=== PATIENT | male | born 1945 | race Caucasian/White ===

== ENCOUNTER 2020-04-10 15:15 | Outpatient (REF) | payer MEDICARE, OTHER, SELFPAY ==
[2020-04-10 15:37] LABS: MANUAL DIFF FLAG NO
[2020-04-10 15:39] LABS: Basophils Percent Auto 0.4 % (0-2); Eosinophils Absolute Auto 0.3 X10*3/uL (0.0-0.4); Eosinophils Percent Auto 3.4 % (0-4); Hematocrit 41.2 % (42-52); Hemoglobin 13.3 g/dl (14.0-18.0); Imm Gran Abs Auto 0.02 X10*3/uL (0.00-0.03); Imm Gran Pct Auto 0.2 % (0.0-0.4); Lymphocytes Absolute Auto 2.3 X10*3/uL (1.2-4.9); Lymphocytes Percent Auto 28.7 % (20-40); Mean Corpuscular HGB Conc 32.3 g/dl (31.0-36.0); Monocytes Absolute Auto 0.6 X10*3/uL (0.1-1.2); Monocytes Percent Auto 6.9 % (2-11); Neutrophils Absolute Auto 4.9 X10*3/uL (2.0-8.3); Neutrophils Percent Auto 60.4 % (45-73); Platelet Count 203 X10*3/uL (160-400); Red Blood Count 4.58 X10*6/uL (4.60-5.80); Red Cell Distribution Width 13.6 % (11.0-16.0); White Blood Count 8.1 X10*3/uL (4.8-10.8)
[2020-04-10 16:30] LABS: Iron 86 mcg/dL (45-160); Percent Iron Saturation 44 % (15-50); Total Iron Binding Capacity 196 mcg/dL (228-428); Unsaturated Iron Binding 110 ug/dL
[2020-04-10 17:23] LABS: Ferritin 24 ng/mL (20-250)
== END 2020-04-10 15:16 | disposition home or self-care (01) ==
LOC: HO.BBR 15:15
PROVIDERS: Visit Provider Internal Medicine Medical Oncology
DX: E83.110 Hereditary hemochromatosis (principal)
CPT/HCPCS: 36415; 82728; 83540; 85025; 99195

== ENCOUNTER 2020-04-22 13:53 | Outpatient (REF) | payer SELFPAY | END 2020-04-22 13:54 | disposition home or self-care (01) | LOC: HO.HAP 13:53 | PROVIDERS: Visit Provider Internal Medicine | DX: Z46.1 Encounter for fitting and adjustment of hearing aid (principal) | CPT/HCPCS: 92700 ==

== ENCOUNTER 2020-04-23 13:03 | Outpatient (REF) | payer SELFPAY | END 2020-04-23 13:04 | disposition home or self-care (01) | LOC: HO.HAP 13:03 | PROVIDERS: Visit Provider Internal Medicine | DX: Z13.89 Encounter for screening for other disorder (principal) ==

== ENCOUNTER → 2020-05-01 10:55 | Outpatient (BNVA) | payer MEDICARE, OTHER, SELFPAY | PROVIDERS: PCP Internal Medicine; Visit Provider Internal Medicine | DX: I48.0 Paroxysmal atrial fibrillation (principal); Z51.81 Encounter for therapeutic drug level monitoring; Z79.01 Long term (current) use of anticoagulants | CPT/HCPCS: 85610 ==

== ENCOUNTER 2020-06-03 11:47 | Outpatient (REF) | payer MEDICARE, OTHER, SELFPAY | END 2020-06-03 11:48 | disposition home or self-care (01) | LOC: HO.HAP 11:47 | PROVIDERS: PCP Internal Medicine; Referring Provider Internal Medicine; Visit Provider Internal Medicine | DX: Z46.1 Encounter for fitting and adjustment of hearing aid (principal); H90.3 Sensorineural hearing loss, bilateral | CPT/HCPCS: 85610; 92700; 99211 ==

== ENCOUNTER 2020-06-13 14:54 | Outpatient (REF) | payer SELFPAY | END 2020-06-13 14:55 | disposition home or self-care (01) | LOC: HO.HAP 14:54 | PROVIDERS: PCP Internal Medicine; Referring Provider Internal Medicine; Visit Provider Internal Medicine | DX: Z46.1 Encounter for fitting and adjustment of hearing aid (principal) | CPT/HCPCS: V5264 ==

== ENCOUNTER → 2020-07-08 11:08 | Outpatient (BNVA) | payer MEDICARE, OTHER, SELFPAY | PROVIDERS: PCP Internal Medicine; Visit Provider Internal Medicine | DX: I48.0 Paroxysmal atrial fibrillation (principal); Z51.81 Encounter for therapeutic drug level monitoring; Z79.01 Long term (current) use of anticoagulants | CPT/HCPCS: 85610; 99211 ==

== ENCOUNTER → 2020-08-08 14:08 | Outpatient (BNVA) | payer MEDICARE, OTHER, SELFPAY | PROVIDERS: PCP Internal Medicine; Visit Provider Internal Medicine | DX: I48.0 Paroxysmal atrial fibrillation (principal); Z51.81 Encounter for therapeutic drug level monitoring; Z79.01 Long term (current) use of anticoagulants | CPT/HCPCS: 85610; 99211 ==

== ENCOUNTER 2020-08-13 13:23 | Outpatient (REF) | payer SELFPAY | END 2020-08-13 13:24 | disposition home or self-care (01) | LOC: HO.HAP 13:23 | PROVIDERS: Visit Provider Internal Medicine | DX: Z46.1 Encounter for fitting and adjustment of hearing aid (principal) | CPT/HCPCS: 99499 ==

== ENCOUNTER → 2020-09-05 15:09 | Outpatient (BNVA) | payer MEDICARE, OTHER, SELFPAY | PROVIDERS: PCP Internal Medicine; Visit Provider Internal Medicine | DX: I48.0 Paroxysmal atrial fibrillation (principal); Z51.81 Encounter for therapeutic drug level monitoring; Z79.01 Long term (current) use of anticoagulants | CPT/HCPCS: 85610; 99211 ==

== ENCOUNTER → 2020-10-03 14:50 | Outpatient (BNVA) | payer MEDICARE, OTHER, SELFPAY | PROVIDERS: PCP Internal Medicine; Visit Provider Internal Medicine | DX: I48.0 Paroxysmal atrial fibrillation (principal); Z79.01 Long term (current) use of anticoagulants; Z51.81 Encounter for therapeutic drug level monitoring | CPT/HCPCS: 85610; 99211 ==

== ENCOUNTER → 2020-10-09 09:48 | Outpatient (BNVA) | payer MEDICARE, SELFPAY | PROVIDERS: PCP Internal Medicine; Visit Provider Nurse Practitioner Gerontology | DX: Z13.89 Encounter for screening for other disorder (principal) | CPT/HCPCS: Q3014 ==

== ENCOUNTER → 2020-10-17 15:25 | Outpatient (BNVA) | payer MEDICARE, OTHER, SELFPAY | PROVIDERS: PCP Internal Medicine; Visit Provider Internal Medicine | DX: I48.0 Paroxysmal atrial fibrillation (principal); Z79.01 Long term (current) use of anticoagulants; Z51.81 Encounter for therapeutic drug level monitoring | CPT/HCPCS: 85610; 99211 ==

== ENCOUNTER 2021-03-11 14:01 | Outpatient (REF) | payer SELFPAY ==
--- NOTE | 2021-03-11 14:25 | MHC.AU.P13 ---
Hearing Instrument Problem Date of Visit: 03/11/21 Right Ear: Curriculum Developer: Phonak Model: AUDEO B90-312 Serial Number: [id number] Repair Warranty: 08/22/19 Loss and Damage Warranty: 08/22/19 Battery Size: 312 Color: BLACK Licensed Physical Therapist: 2xS Type of Mold: SLIM TIP Type of Wax Guard: CERUSTOP Dispensed By: [facility] Date of Fittin06/02/2016 Left Ear: Curriculum Developer: Phonak Model: CROS B-312 Serial Number: [id number] Repair Warranty: 08/22/17 Battery Size: 312 Tubin Type of Mold: CROS TIP Dispensed By: [facility] Date of Fittin06/02/2016 Follow-Up Summary: Patient brought in aids - not working. Batteries checked (one was weak) replaced both but bmw service technician not working. Cleaned and replaced right size 2xS bmw service technician and now both right and left CROS amplifying clearly. Will bill patient $150.00 bmw service technician replacement. Recommendations: Recommendations: Hearing instrument follow-up or maintenance as needed. Diagnosis Code(s): Primary Diagnosis: H90.3 Bilateral Sensorineural Hearing Loss Signature: Provider: SHAYY Benson-HIS
== END 2021-03-11 14:02 | disposition home or self-care (01) ==
LOC: HO.HAP 14:01
PROVIDERS: Visit Provider Internal Medicine
DX: Z46.1 Encounter for fitting and adjustment of hearing aid (principal); H90.3 Sensorineural hearing loss, bilateral
CPT/HCPCS: V5014

== ENCOUNTER 2021-04-06 14:38 | Outpatient (REF) | payer SELFPAY | END 2021-04-06 14:39 | disposition home or self-care (01) | LOC: HO.HAP 14:38 | PROVIDERS: Visit Provider Internal Medicine | DX: Z13.89 Encounter for screening for other disorder (principal) ==

== ENCOUNTER 2021-05-18 12:53 | Outpatient (REF) | payer MEDICARE, OTHER, SELFPAY ==
--- NOTE | 2021-05-18 13:10 | MHC.AU.P13 ---
Hearing Instrument Problem Date of Visit: 05/18/21 Right Ear: Sanitation Director: Phonak Model: AUDEO B90-312 Serial Number: [id number] Repair Warranty: 08/22/19 Loss and Damage Warranty: 08/22/19 Battery Size: 312 Color: BLACK Naval Marine Engineer: 2xS Type of Mold: SLIM TIP Type of Wax Guard: CERUSTOP Dispensed By: [facility] Date of Fittin06/02/2016 Left Ear: Sanitation Director: Phonak Model: CROS B-312 Serial Number: [id number] Repair Warranty: 08/22/17 Battery Size: 312 Tubin Type of Mold: CROS TIP Dispensed By: [facility] Date of Fittin06/02/2016 Follow-Up Summary: Patient brought in aids - not working. Clogged with wax, both aids cleaned and right wax guard replaced - now both amplifying clearly. Recommendations: Recommendations: Hearing instrument follow-up or maintenance as needed. Diagnosis Code(s): Primary Diagnosis: H90.3 Bilateral Sensorineural Hearing Loss Signature: Provider: SHAYY Benson-HIS
== END 2021-05-18 12:54 | disposition home or self-care (01) ==
LOC: HO.HAP 12:53
PROVIDERS: Visit Provider Internal Medicine
DX: Z46.1 Encounter for fitting and adjustment of hearing aid (principal); H90.3 Sensorineural hearing loss, bilateral
CPT/HCPCS: 99499

== ENCOUNTER 2021-06-03 14:03 | Outpatient (REF) | payer SELFPAY | END 2021-06-03 14:04 | disposition home or self-care (01) | LOC: HO.HAP 14:03 | PROVIDERS: Visit Provider Internal Medicine | DX: Z46.1 Encounter for fitting and adjustment of hearing aid (principal); H90.3 Sensorineural hearing loss, bilateral | CPT/HCPCS: V5267 ==

== ENCOUNTER 2021-09-02 15:19 | Outpatient (REF) | payer SELFPAY ==
--- NOTE | 2021-09-02 16:09 | MHC.AU.HFU ---
Hearing Instrument Follow-Up- Binaural Date of Visit: 09/02/21 Right Ear:Macaroni Maker: Phonak Model: AUDEO B90-312 Serial Number: [id number] Repair Warranty: 08/22/19 Loss and Damage Warranty: 08/22/19 Battery Size: 312 Color: BLACK Customer Services Manager: 2xS Type of Mold: SLIM TIP Type of Wax Guard: CERUSTOP Dispensed By: [facility] Date of Fittin06/02/2016 Left Ear: Macaroni Maker: Phonak Model: CROS B-312 Serial Number: [id number] Repair Warranty: 08/22/17 Battery Size: 312 Tubin Type of Dome: Type of Mold: CROS TIP Type of Wax Guard: Dispensed By: [facility] Date of Fittin06/02/2016 Follow-Up Summary: Patient reports the CROS system stopped working. Sometimes it turns back on and other times the system doesn't work. Initial listening check showed the right aid and CROS both working, but weaker than expected. Cleaned the aids, microphones, contacts, right straightening roll operator, and changed wax guards. Again did a listening check with the system working, but weak. When the right hearing aid case was squeezed, the aid stopped. Needed to turn the aid off and on again. Intermittently the right aid would shut off. Tried a new straightening roll operator with the problem continuing. Sending the right aid to [employer] for repair estimate. Recommendations:Call patient with estimate. Patient will decide if he wants the repair vs. new CROS system. Diagnosis Code(s):Primary Diagnosis: H90.3 Bilateral Sensorineural Hearing Loss Services Performed:YANCEY Non-Quantity Charges: HANC: NonBillable Event Signature: Provider: Margie Gonzales, [facility]
== END 2021-09-02 15:20 | disposition home or self-care (01) ==
LOC: HO.HAP 15:19
PROVIDERS: Visit Provider Internal Medicine
DX: Z13.89 Encounter for screening for other disorder (principal)

== ENCOUNTER 2021-09-17 13:22 | Outpatient (REF) | payer SELFPAY | END 2021-09-17 13:23 | disposition home or self-care (01) | LOC: HO.HAP 13:22 | PROVIDERS: Visit Provider Internal Medicine | DX: Z46.1 Encounter for fitting and adjustment of hearing aid (principal); H90.3 Sensorineural hearing loss, bilateral | CPT/HCPCS: V5014 ==

== ENCOUNTER 2021-12-02 13:52 | Outpatient (REF) | payer SELFPAY ==
--- NOTE | 2021-12-02 14:32 | MHC.AU.HFU ---
Hearing Instrument Follow-Up- Binaural Date of Visit: 12/02/21 Right Ear: Labor Utilization Superintendent: Phonak Model: AUDEO B90-312 Serial Number: [id number] Repair Warranty: 03/12/2022 Loss and Damage Warranty: 08/22/19 Battery Size: 312 Color: BLACK Log Deck Tender: 2xS Type of Mold: SLIM TIP Type of Wax Guard: CERUSTOP Dispensed By: [facility] Date of Fittin06/02/2016 Left Ear: Labor Utilization Superintendent: Phonak Model: CROS B-312 Serial Number: [id number] Repair Warranty: 08/22/17 Battery Size: 312 Tubin Type of Mold: CROS TIP Dispensed By: [facility] Date of Fittin06/02/2016 Follow-Up Summary: [facility] - CROS system not working. Batteries were and right hearing aid had cerumen completely blocking the adventure challenge instructor. Patient admits he does not remember to change the batteries every week. Sometimes will change the wax guard. Put new batteries, cleaned aids, receivers, microphones and CROS system is now working. Otoscopy shows small amount of cerumen in left ear. Gave patient handouts to keep next to his hearing aids for daily maintenance to think about since it seems as though the most difficult part for patient is the daily up keep of the aids. Recommendations:Hearing instrument follow-up or maintenance as needed. Please contact our clinic with any questions or concerns. Diagnosis Code(s):Primary Diagnosis: H90.3 Bilateral Sensorineural Hearing Loss Signature:Provider: Margie Gonzales, JD-A
== END 2021-12-02 13:53 | disposition home or self-care (01) ==
LOC: HO.HAP 13:52
PROVIDERS: Visit Provider Internal Medicine
DX: Z13.89 Encounter for screening for other disorder (principal)

== ENCOUNTER 2022-01-18 11:16 | Outpatient (REF) | payer SELFPAY | END 2022-01-18 11:17 | disposition home or self-care (01) | LOC: HO.HAP 11:16 | PROVIDERS: Visit Provider Internal Medicine | DX: Z46.1 Encounter for fitting and adjustment of hearing aid (principal); H91.03 Ototoxic hearing loss, bilateral | CPT/HCPCS: V5267 ==

== ENCOUNTER 2022-07-16 14:07 | Outpatient (REF) | payer SELFPAY | END 2022-07-16 14:08 | disposition home or self-care (01) | LOC: HO.HAP 14:07 | PROVIDERS: Visit Provider Internal Medicine | DX: Z46.1 Encounter for fitting and adjustment of hearing aid (principal); H90.3 Sensorineural hearing loss, bilateral | CPT/HCPCS: V5267 ==

== ENCOUNTER 2022-09-01 10:18 | Outpatient (REF) | payer SELFPAY ==
--- NOTE | 2022-09-01 11:06 | MHC.AU.HA3 ---
Hearing Instrument Follow-Up- Binaural Date of Visit: 09/01/22 Right Ear: Make, Model, Color, Serial Number: Brandon Fangeo B90-312 SN: [id number] Color: Black Product Scientist Repair Warranty: 03/12/2022 Product Scientist Loss and Damage Warranty: 08/22/2019 Battery Size: 312 Fork Assembler/Slim Tube: 2xS Earmold/Dome/CShell/SlimTip:Slim Tip Type of Wax Guard: CeruStop Dispensed By: [facility] Date of Fittin06/02/2016 Left Ear: Make, Model, Color, Serial Number: Brandon CROS B-312 SN: [id number] Color: Black Product Scientist Repair Warranty: 08/22/2017 Product Scientist Loss and Damage Warranty: 08/22/2017 Battery Size: 312 Earmold/Dome/CShell/SlimTip: CROS Tip Dispensed By: [facility] Date of Fittin06/02/2016 Follow-Up Summary: Timur reported that his right hearing aid is not working and he cannot change the wax guard. Lots of wax build on both molds and blocking right wax guard. Fork Assembler appeared to be recessed in mold so the wax guard could not be changed. Cleaned hearing aid and CROS and both ear molds. Replaced wax guard and able to push slot router further into mold so that wax guard is flush with end of mold. A listening check demonstrated that the hearing aid is working well and the CROS is transmitting sound appropriately. Timur noticed immediate improvement in office. Otoscopy clear, bilaterally. Paid $70.00 for cleaning/maintenance and two packages of wax guards. Recommendations: Hearing instrument follow-up or maintenance as needed. Diagnosis Code(s): Primary Diagnosis: H90.3 Bilateral Sensorineural Hearing Loss Signature: Provider: Jorge Ferrera, [facility]
== END 2022-09-01 10:19 | disposition home or self-care (01) ==
LOC: HO.HAP 10:18
PROVIDERS: Visit Provider Internal Medicine
DX: Z46.1 Encounter for fitting and adjustment of hearing aid (principal); H90.3 Sensorineural hearing loss, bilateral
CPT/HCPCS: 92593; V5267

== ENCOUNTER 2022-12-23 10:09 | Outpatient (REF) | payer SELFPAY | END 2022-12-23 10:10 | disposition home or self-care (01) | LOC: HO.HAP 10:09 | PROVIDERS: Visit Provider Internal Medicine | DX: Z46.1 Encounter for fitting and adjustment of hearing aid (principal); H90.3 Sensorineural hearing loss, bilateral | CPT/HCPCS: V5267 ==

== ENCOUNTER 2022-12-31 15:48 | Outpatient (REF) | payer SELFPAY | END 2022-12-31 15:49 | disposition home or self-care (01) | LOC: HO.HAP 15:48 | PROVIDERS: Visit Provider Internal Medicine | DX: Z46.1 Encounter for fitting and adjustment of hearing aid (principal); H90.3 Sensorineural hearing loss, bilateral | CPT/HCPCS: V5014 ==

== ENCOUNTER → 2023-05-02 09:50 | Outpatient (BNV) | payer MEDICARE, OTHER, SELFPAY | PROVIDERS: PCP Internal Medicine; Visit Provider Internal Medicine Medical Oncology | DX: E83.119 Hemochromatosis, unspecified (principal) | CPT/HCPCS: 99204; 99213 ==

== ENCOUNTER 2023-05-04 13:52 | Outpatient (REF) | payer MEDICARE, OTHER, SELFPAY ==
[2023-05-04 14:25] LABS: MANUAL DIFF FLAG NO
[2023-05-04 14:27] LABS: Basophils Percent Auto 0.4 % (0-2); Eosinophils Absolute Auto 0.2 X10*3/uL (0.0-0.4); Eosinophils Percent Auto 2.4 % (0-4); Hematocrit 43.5 % (42.0-52.0); Hemoglobin 13.8 g/dl (14.0-18.0); Imm Gran Abs Auto 0.01 X10*3/uL (0.00-0.03); Imm Gran Pct Auto 0.1 % (0.0-0.4); Lymphocytes Absolute Auto 1.6 X10*3/uL (1.2-4.9); Lymphocytes Percent Auto 24.2 % (20-40); Mean Corpuscular HGB Conc 31.7 g/dl (31.0-36.0); Mean Corpuscular Hemoglobin 28.8 pg (27.0-33.0); Mean Corpuscular Volume 90.8 fL (80.0-98.0); Mean Platelet Volume 9.1 fL (9.4-12.4); Monocytes Absolute Auto 0.6 X10*3/uL (0.1-1.2); Monocytes Percent Auto 8.1 % (2-11); Neutrophils Absolute Auto 4.4 x10*3/uL (2.0-8.3); Neutrophils Percent Auto 64.8 % (45-73); Platelet Count 190 X10*3/uL (160-400); Red Blood Count 4.79 X10*6/uL (4.60-5.80); Red Cell Distribution Width 14.1 % (11.0-16.0); White Blood Count 6.8 X10*3/uL (4.8-10.8)
[2023-05-04 15:14] LABS: Alanine Aminotransferase 8 U/L (0-40); Albumin Level 4.4 g/dL (3.5-5.0); Alkaline Phosphatase 56 U/L (39-117); Anion Gap 16 (12-20); Aspartate Amino Transferase 17 U/L (5-37); Bilirubin Total 1.7 mg/dL (0.0-1.0); Blood Urea Nitrogen 17 mg/dL (9-16); Calcium 9.7 mg/dL (8.4-10.2); Carbon Dioxide 23 mmol/L (22-29); Chloride 109 mmol/L (96-108); Estimated Glomerular Filt Rate > 60; Glucose Random 213 mg/dL (60-115); Iron 88 mcg/dL (45-160); Percent Iron Saturation 46 % (15-50); Potassium 4.5 mmol/L (3.3-5.1); Sodium 143 mmol/L (135-145); Total Iron Binding Capacity 190 mcg/dL (228-428); Total Protein 7.2 g/dL (6.5-8.0); Unsaturated Iron Binding 102 ug/dL
[2023-05-04 15:28] LABS: Ferritin 29 ng/mL (20-250)
== END 2023-05-04 13:53 | disposition home or self-care (01) ==
LOC: HO.BBR 13:52
PROVIDERS: Visit Provider Internal Medicine Medical Oncology
DX: E83.110 Hereditary hemochromatosis (principal)
CPT/HCPCS: 36415; 80053; 82728; 83540; 85025

== ENCOUNTER 2023-06-03 09:48 | Outpatient (REF) | payer MEDICARE, OTHER, SELFPAY ==
[2023-06-03 10:10] LABS: MANUAL DIFF FLAG NO
[2023-06-03 10:14] LABS: Basophils Percent Auto 0.4 % (0-2); Eosinophils Absolute Auto 0.2 X10*3/uL (0.0-0.4); Hematocrit 39.9 % (42.0-52.0); Hemoglobin 12.2 g/dl (14.0-18.0); Imm Gran Abs Auto 0.02 X10*3/uL (0.00-0.03); Imm Gran Pct Auto 0.3 % (0.0-0.4); Lymphocytes Percent Auto 28.6 % (20-40); Mean Corpuscular HGB Conc 30.6 g/dl (31.0-36.0); Mean Corpuscular Hemoglobin 27.5 pg (27.0-33.0); Mean Corpuscular Volume 90.1 fL (80.0-98.0); Mean Platelet Volume 8.9 fL (9.4-12.4); Monocytes Absolute Auto 0.5 X10*3/uL (0.1-1.2); Monocytes Percent Auto 7.4 % (2-11); Neutrophils Absolute Auto 4.3 x10*3/uL (2.0-8.3); Neutrophils Percent Auto 60.3 % (45-73); Platelet Count 231 X10*3/uL (160-400); Red Blood Count 4.43 X10*6/uL (4.60-5.80); Red Cell Distribution Width 13.7 % (11.0-16.0)
[2023-06-03 11:07] LABS: Alanine Aminotransferase 7 U/L (0-40); Albumin Level 4.4 g/dL (3.5-5.0); Alkaline Phosphatase 50 U/L (39-117); Anion Gap 14 (12-20); Aspartate Amino Transferase 17 U/L (5-37); Bilirubin Total 1.3 mg/dL (0.0-1.0); Blood Urea Nitrogen 15 mg/dL (9-16); Calcium 9.5 mg/dL (8.4-10.2); Carbon Dioxide 25 mmol/L (22-29); Chloride 109 mmol/L (96-108); Estimated Glomerular Filt Rate > 60; Glucose Random 146 mg/dL (60-115); Iron 31 mcg/dL (45-160); Percent Iron Saturation 16 % (15-50); Potassium 4.2 mmol/L (3.3-5.1); Sodium 144 mmol/L (135-145); Total Iron Binding Capacity 193 mcg/dL (228-428); Total Protein 7.1 g/dL (6.5-8.0); Unsaturated Iron Binding 162 ug/dL
[2023-06-03 11:26] LABS: Ferritin 13 ng/mL (20-250)
== END 2023-06-03 09:49 | disposition home or self-care (01) ==
LOC: HO.BBR 09:48
PROVIDERS: PCP Internal Medicine; Visit Provider Internal Medicine Medical Oncology
DX: E83.110 Hereditary hemochromatosis (principal)
CPT/HCPCS: 36415; 80053; 82728; 83540; 85025

== ENCOUNTER 2023-09-02 10:08 | Outpatient (REF) | payer MEDICARE, OTHER, SELFPAY ==
[2023-09-02 10:32] LABS: MANUAL DIFF FLAG NO
[2023-09-02 10:33] LABS: Basophils Percent Auto 0.3 % (0-2); Eosinophils Absolute Auto 0.2 X10*3/uL (0.0-0.4); Eosinophils Percent Auto 2.3 % (0-4); Hematocrit 35.7 % (42.0-52.0); Hemoglobin 10.5 g/dl (14.0-18.0); Imm Gran Abs Auto 0.01 X10*3/uL (0.00-0.03); Imm Gran Pct Auto 0.2 % (0.0-0.4); Lymphocytes Absolute Auto 1.9 X10*3/uL (1.2-4.9); Lymphocytes Percent Auto 28.9 % (20-40); Mean Corpuscular HGB Conc 29.4 g/dl (31.0-36.0); Mean Corpuscular Hemoglobin 24.2 pg (27.0-33.0); Mean Corpuscular Volume 82.3 fL (80.0-98.0); Mean Platelet Volume 8.9 fL (9.4-12.4); Monocytes Absolute Auto 0.5 X10*3/uL (0.1-1.2); Neutrophils Absolute Auto 3.9 x10*3/uL (2.0-8.3); Neutrophils Percent Auto 61.3 % (45-73); Platelet Count 234 X10*3/uL (160-400); Red Blood Count 4.34 X10*6/uL (4.60-5.80); Red Cell Distribution Width 15.9 % (11.0-16.0); White Blood Count 6.4 X10*3/uL (4.8-10.8)
[2023-09-02 11:24] LABS: Alanine Aminotransferase 9 U/L (0-40); Albumin Level 4.3 g/dL (3.5-5.0); Alkaline Phosphatase 53 U/L (39-117); Anion Gap 13 (12-20); Aspartate Amino Transferase 16 U/L (5-37); Bilirubin Total 1.2 mg/dL (0.0-1.0); Blood Urea Nitrogen 13 mg/dL (9-16); Calcium 9.1 mg/dL (8.4-10.2); Carbon Dioxide 23 mmol/L (22-29); Chloride 112 mmol/L (96-108); Estimated Glomerular Filt Rate > 60; Glucose Random 179 mg/dL (60-115); Iron 24 mcg/dL (45-160); Percent Iron Saturation 12 % (15-50); Potassium 4.2 mmol/L (3.3-5.1); Sodium 144 mmol/L (135-145); Total Iron Binding Capacity 200 mcg/dL (228-428); Total Protein 6.8 g/dL (6.5-8.0); Unsaturated Iron Binding 176 ug/dL
[2023-09-02 11:39] LABS: Ferritin 9 ng/mL (20-250)
== END 2023-09-02 10:09 | disposition home or self-care (01) ==
LOC: HO.BBR 10:08
PROVIDERS: PCP Internal Medicine; Visit Provider Internal Medicine Medical Oncology
DX: E83.110 Hereditary hemochromatosis (principal)
CPT/HCPCS: 36415; 80053; 82728; 83540; 85025

== ENCOUNTER 2023-10-26 11:44 | Outpatient (REF) | payer SELFPAY | END 2023-10-26 11:45 | disposition home or self-care (01) | LOC: HO.HAP 11:44 | PROVIDERS: Visit Provider Internal Medicine | DX: Z46.1 Encounter for fitting and adjustment of hearing aid (principal); H90.3 Sensorineural hearing loss, bilateral | CPT/HCPCS: V5267 ==

== ENCOUNTER 2025-05-06 11:07 | Outpatient (REF) | payer SELFPAY ==
--- OUTSIDE RECORDS SUMMARY | 2025-05-06 14:06 | XMS_ITS | Encounter Summary ---
Author Organization [facility] Address [address] [place] [address] [place] [address] Phone Care Team Providers Care Buzzle Buffer Name Role Phone Chris Morales MD Unavailable [phone] Chris Morales MD Primary Care Provider [phone] Marce Cuellar NP Unavailable [phone] Rizwan Diaz MD Unavailable [phone] Shantanu Cole MD Unavailable Alfonso Peters MD Unavailable [phone] Fritz Gotti MD Unavailable Armani Padron MD Unavailable Encounter Details Date Type Department Care Team (Late st Contact Info) Description 08/26/2021 Procedure Pass [facility] DEPT [address] [place] [address] Social History Tobacco Use Types Packs/Day Years Used Date Smoking Tobacco: Never Smokeless Tobacco: Never Alcohol Use Standard Drinks/Week Comments No 0 (1 standard drink = 0.6 oz pur e alcohol) Sex and Gender Information Value Date Recorded Sex Assigned at Male 10/19/2020 4:58 PM EDT Legal Sex Male 10:08 PM EDT Gender Identity Male 10/19/2020 4:58 PM EDT Sexual Orientation Straight 10/19/2020 5: 02 PM EDT documented as of this encounter Plan of Treatment Upcoming Encounters Date Type Department Care Team (Late st Contact Info) Description 07/10/2025 1:00 PM EST Office Visit [facility] Internal Medicine [address] [place] [address] Chris Morales MD [address] [place] [address] 07/17/2025 3:00 PM EST Office Visit [facility] [address] [place] [address] Peña Andrew DO [address] [place] [address] [email or web address] 09/11/2025 12:30 PM EDT Office Visit [facility] Retina [address] [address] Peña Andres MD [address] [place] [address] [email or web address] 09/11/2025 1:00 PM EDT Appointment [facility] Glaucoma [address] [address] Peña Andres MD [address] [place] [address] [email or web address] 09/11/2025 1:30 PM EDT Office Visit [address] [address] Pete Small MD, PhD, MPH [address] [place] [address] [email or web address] 12/30/2025 2:00 PM EDT Office Visit [facility] Internal Medicine [address] [place], [place] [phone] Yury Vasquez PA-C [address] [place] [address] [email or web address] documented as of this encounter Visit Diagnoses Not on filedocumented in this encounter Additional Health Concerns Infection Onset Date Last Indicated Resolved Time CoV-Presumed 10/19/2021 10/19/2021 11/09/2021 1:23 AM EDT Assessment Noted Time PHQ-2 Depression Total Score: 0 08/06/19 1:20 PM EST documented as of this encounter Care Teams Buzzle Buffer Relationship Specialty Start Date End Date Chris Morales MD [address] [place] [address] [email or web address] PCP - General Internal Medicine 05/24/17 Chris Morales MD [address] [place] [address] [email or web address] Insurance Assigned Provider 10/08/23 Marce Cuellar, FISHER QUAHOG [address] [place] [address] Endocrinology 08/06/19 Rizwan Diaz MD [address] [place] [address] Cardiology 10/03/19 Shantanu Cole MD [address] [place] [address] [place] [address] Ophthalmology 11/27/19 Alfonso Peters MD [address] [place] [address] [place] [address] Internal Medicine 05/20/20 Fritz Gotti MD [address] [place] [address] Internal Medicine 05/20/20 Armani Padron MD [address] [place] [phone] Gastroenterology 09/04/20 documented as of this encounter Additional Source Comments The information contained in this document represents components of the legal health record. It is not the complete legal health record.[facility]
--- OUTSIDE RECORDS SUMMARY | 2025-05-06 14:06 | XMS_ITS | Encounter Summary ---
Author Organization [facility] Address [address] [place] [address] [place] [address] Phone Care Team Providers Care Lamination Machine Operator Name Role Phone Chris Morales MD Unavailable [phone] Chris Morales MD Primary Care Provider [phone] Marce Cuellar NP Unavailable Rizwan Diaz MD Unavailable [phone] Shantanu Cole MD Unavailable Alfonso Peters MD Unavailable Fritz Gotti MD Unavailable Armani Padron MD Unavailable Juanjo Hart OT Unavailable Encounter Details Date Type Department Care Team (Late st Contact Info) Description 11/03/2020 Procedure Pass [facility] Cardiovascular And Interventional Radiology [address] [place] [address] Social History Tobacco Use Types Packs/Day Years [...] Description 07/10/2025 1:00 PM EST Office Visit [facility] Internal Medicine [address] [place] [address] Chris Morales MD [address] [place] [address] [email or web address] 07/17/2025 3:00 PM EST Office Visit [facility] [address] [place] [address] Peña Andrew DO [address] [place] [address] [email or web address] 09/11/2025 12:30 PM EDT Office Visit [facility] Retina [address] [address] Peña Andres MD [address] [place] [address] [email or web address] 09/11/2025 1:00 PM EDT Appointment [facility] Glaucoma [address] [address] Peña Andres MD [address] [place] [phone] [email or web address] 09/11/2025 1:30 PM EDT Office Visit [address] [address] Pete Small MD, PhD, MPH [address] [place] [address] [email or web address] 12/30/2025 2:00 PM EDT Office Visit [facility] Internal Medicine [address] [place], [place] [phone] Yury Vasquez PA-C [address] [place] [address] [email or web address] documented as of this encounter Visit Diagnoses Not on filedocumented in this encounter Additional Health Concerns Infection Onset Date Last Indicated Resolved Time CoV-Presumed 10/19/2021 10/19/2021 11/09/2021 1:23 AM EDT Assessment Noted Time PHQ-2 Depression Total Score: 0 08/06/19 1:20 PM EST documented as of this encounter Care Teams Lamination Machine Operator Relationship Specialty Start Date End Date Chris Morales MD [address] [place] [address] [email or web address] PCP - General Internal Medicine 05/24/17 Chris Morales MD [address] [place] [address] [email or web address] Insurance Assigned Provider 10/08/23 Marce Cuellar NP [address] [place] [address] Endocrinology 08/06/19 Rizwan Diaz MD [address] [place] [address] Cardiology 10/03/19 Shantanu Cole MD [address] [place] [address] [place] [address] Ophthalmology 11/27/19 Alfonso Petesr MD [address] [place] [address] [place] [address] Internal Medicine 05/20/20 Fritz Gotti MD 5 [place] [address] Internal Medicine 05/20/20 Armani Padron MD [address] [place] [phone] Gastroenterology 09/04/20 Juanjo Hart OT [address] [place] [address] [email or web address] Transitions Sandwich PeddlerProcessor Helper Therapy 10/27/20 11/09/20 documented as of this encounter Additional Source Comments The information contained in this document represents components of the legal health record. It is not the complete legal health record.[facility]
--- OUTSIDE RECORDS SUMMARY | 2025-05-06 14:06 | XMS_ITS | Encounter Summary ---
Author Organization [facility] Address [address] [place] [address] [place] [address] Phone Care Team Providers Care Garment Sewer Hand Name Role Phone Chris Morales MD Unavailable Sammie Whitman MD Unavailable [phone] Chris Morales MD Unavailable [phone] Cluadia Lozano CUTTING ROOM SUPERVISOR Unavailable [phone] Chris Morales MD Primary Care Provider Marce Cuellar CUTTING ROOM SUPERVISOR Unavailable Rizwan Diaz MD Unavailable [phone] Shantanu Cole MD Unavailable Alfonso Peters MD Unavailable [phone] Fritz Gotti MD Unavailable Armani Padron MD Unavailable Juanjo Hart OT Unavailable [phone] Encounter Details Date Type Department Care Team (Latest Contact Info) Description 07/08/2017 Transcribe Orders [address] [place] [address] Chris Morales MD [address] [place], [place] [phone] Uncontrolled type 2 diabetes mellitus without complication, without long-term current use of insulin (Primary Dx); Essential hypertension, benign Social History Tobacco Use Types Packs/Day Years Used Date Smoking Tobacco: Never Assessed Sex and Gender Information Value Date Recorded Sex Assigned at Male 10/19/2020 4:58 PM EDT Legal Sex Male 10:08 PM EDT Gender Identity Male 10/19/2020 4:58 PM EDT Sexual Orientation Straight 10/19/2020 5: 02 PM EDT documented as of this encounter Plan of Treatment Upcoming Encounters Date Type Department Care Team (Late st Contact Info) Description 07/10/2025 1:00 PM EST Office Visit [facility] Internal Medicine [address] [place] [address] Chris Morales MD [address] [place] [address] 07/17/2025 3:00 PM EST Office Visit [facility] [address] [place] [address] Peña Andrew DO 22 [place] [address] 09/11/2025 12:30 PM EDT Office Visit [facility] [address] [address] Peña Andres MD [address] [place] [address] [email or web address] 09/11/2025 1:00 PM EDT Appointment [facility] [address] [address] Peña Andres MD [address] [place] [address] [email or web address] 09/11/2025 1:30 PM EDT Office Visit [facility] Glaucoma [address] [address] Pete Small MD, PhD, MPH [address] [place] [address] [email or web address] 12/30/2025 2:00 PM EDT Office Visit [facility] Internal Medicine [address] [place] [address] Yury Vasquez PA-C [address] [place] [address] [email or web address] documented as of this encounter Procedures Procedure Name Priority Date/Time Associated Diagnosis Comments COMPREHENSIVE METABOLIC PANEL (CMP) Routine 07/08/2017 8:58 AM EST Uncontrolled type 2 diabetes mellitus without complication, without long-term current use of insulin Essential hypertension, benign MICROALBUMIN/CREATININ E RATIO, RANDOM URINE Routine 07/08/2017 8:58 AM EST Uncontrolled type 2 diabetes mellitus without complication, without long-term current use of insulin Essential hypertension, benign CBC Routine 07/08/2017 8:58 AM EST Uncontrolled type 2 diabetes mellitus without complication, without long-term current use of insulin Essential hypertension, benign PSA (SCREENING) Routine 07/08/2017 8:58 AM EST Uncontrolled type 2 diabetes mellitus without complication, without long-term current use of insulin Essential hypertension, benign HEMOGLOBIN A1C Routine 07/08/2017 8:58 AM EST Uncontrolled type 2 diabetes mellitus without complication, without long-term current use of insulin Essential hypertension, benign documented in this encounter Results * (ABNORMAL) Microalbumin/creatinine ratio, random urine (07/08/2017 8:58 AM EST) URINE MICROALBUMIN 3.5(H) 0 - 2.3 mg/dL [facility] URINE CREATININE 140 mg/dL [facility] MICROALB/CRE RATIO 25.0(H) 0 - 20 mg/g Cre [facility] Urine (Urine) 07/08/2017 8:5 8 AM EST 07/08/2017 9:00 AM EST us Chris Morales MD LAB URINE ORDERABLES Final Re sult Performing Organization Address [facility]/ZIP Co de Phone Number [address] [place] [address] [address] * (ABNORMAL) Hemoglobin A1c (07/08/2017 8:58 AM EST) HEMOGLOBIN A1C 11.1(H) 4.3 - 5.8 % [facility] Blood 07/08/2017 8:58 AM EST 07/08/2017 9:01 AM EST us Chris Morales MD LAB BLOOD BKR ORDERABLES Brittny l Result Performing Organization Address [facility] Co de Phone Number [address] [place] [address] [address] * (ABNORMAL) Comprehensive metabolic panel (07/08/2017 8:58 AM EST) SODIUM 142 133 - 146 mmol/L [facility] POTASSIUM 4.2 3.3 - 5.1 mmol/L [facility] CHLORIDE 101 96 - 108 mmol/L [facility] CO2 29 21 - 35 mmol/L [facility] BUN 18 6 - 19 mg/dL [facility] CREATININE 1.00 0.5 - 1.5 mg/dL [facility] GLUCOSE 245(H) 70 - 99 mg/dL [facility] ALBUMIN 4.3 3.9 - 4.8 g/dL [facility] TOTAL PROTEIN 7.3 6.5 - 8.0 g/dL [facility] CALCIUM 9.6 8.4 - 10.3 mg/dL [facility] ALKALINE PHOSPHATASE 88 39 - 117 U/L [facility] TOTAL BILIRUBIN 1.1 0 - 1.2 mg/dL [facility] AST 19 0 - 37 U/L [facility] ALT 6 0 - 40 U/L [facility] GLOBULIN 3.0 1 - 4.8 g/dL [facility] EGFR >60 mL/min/1.7 3m2 [facility] Comment:Abnormal if <60. If patient is -Filipino, multiply the result by 1.21. ANION GAP 16 10 - 20 mmol/L [facility] Blood 07/08/2017 8:58 AM EST 07/08/2017 9:01 AM EST Chris Morales MD LAB BLOOD BKR ORDERABLES Brittny l Result [address] [place] [address] [address] * (ABNORMAL) CBC (07/08/2017 8:58 AM EST) WBC 8.85 3.40 - 11.20 K/uL [facility] RBC 4.77 4.50 - 5.50 M/uL [facility] HGB 14.6 13.0 - 17.0 g/dL [facility] HCT 44.2 40.0 - 51.0 % [facility] PLT 214 130 - 400 K/uL [facility] MCV 92.7 79.0 - 98.0 fL [facility] MCH 30.6 27.0 - 34.8 pg [facility] MCHC 33.0 31.5 - 36.0 g/dL [facility] RDW 13.0 10.8 - 14.6 % [facility] MPV 9.3(L) 9.4 - 12.4 fl [facility] NRBC 0.00 /100 WBCs [facility] ABSOLUTE NRBC 0.00 K/uL [facility] Blood 07/08/2017 8:58 AM EST 07/08/2017 9:01 AM EST us Chris Morales MD LAB BLOOD BKR ORDERABLES Brittny l Result [address] [place] [address] [address] * PSA (screening) (07/08/2017 8:58 AM EST) PSA 1.95 0 - 4.00 ng/mL [facility] Blood 07/08/2017 8:58 AM EST 07/08/2017 9:01 AM EST us Chris Morales MD LAB BLOOD BKR ORDERABLES Brittny cee Result [facility] [address] [place] [address] documented in this encounter Visit Diagnoses Diagnosis Uncontrolled type 2 diabetes mellitus without complication, without long-term current use of insulin- Primary Essential hypertension, benign documented in this encounter Additional Health Concerns Infection Onset Date Last Indicated Resolved Time CoV-Presumed 10/19/2021 10/19/2021 11/09/2021 1:23 AM EDT documented as of this encounter Care Teams Garment Sewer Hand Relationship Specialty Start Date End Date Chris Morales MD [address] [place] [address] PCP - General Internal Medicine 05/24/17 Chris Morales MD [address] [place] [address] Insurance Assigned Provider 10/08/23 Sammie Whitman MD [address] [place] [address] Historical LMR Provider 04/23/17 08/05/19 Chris Morales MD [address] [place] [address] [email or web address] Historical LMR Provider 04/23/17 08/05/19 Claudia Lozano NP [address] [place] [address] 6 [place] [address] [email or web address] Historical LMR Provider 04/23/17 08/05/19 Marce Cuellar NP [address] [place] [address] Endocrinology 08/06/19 Rizwan Diaz MD [address] [place] [address] Cardiology 10/03/19 Shantanu Cole MD [address] [place] [address] [address] [place] [address] Ophthalmology 11/27/19 Alfonso Peters MD [address] [place] [address] Dr [address] [place] [address] Internal Medicine 05/20/20 Fritz Gotti MD [address] [place] [address] Internal Medicine 05/20/20 Armani Padron MD [address] [place] [address] Dr [address] [place] [phone] Gastroenterology 09/04/20 Juanjo Hart OT [address] [place] [address] [email or web address] TechnicianParts Lister Therapy 10/27/20 11/09/20 documented as of this encounter Additional Source Comments The information contained in this document represents components of the legal health record. It is not the complete legal health record.[facility]
--- OUTSIDE RECORDS SUMMARY | 2025-05-06 14:06 | XMS_ITS | Encounter Summary ---
Author Organization [facility] Address [address] [facility] [address] [place] [address] Phone Care Team Providers Care Offal Separator Name Role Phone Chris Morales MD Unavailable [phone] Chris Morales MD Primary Care Provider [phone] Marce Cuellar NP Unavailable [phone] Rizwan Diaz MD Unavailable [phone] Shantanu Cole MD Unavailable [phone] Alfonso Peters MD Unavailable [phone] Fritz Gotti MD Unavailable [phone] Armani Padron MD Unavailable Encounter Details Date Type Department Care Team (Latest Contact Info) Description 07/28/2021 Prep for Surgery [address] [address] Asha Vasquez MD [email or web address] Pseudoexfoliation glaucoma, indeterminate stage (Primary Dx) Social History Tobacco Use Types Packs/Day Years [...] Description 07/10/2025 1:00 PM EST Office Visit [facility] [address] [place] [address] Chris Morales MD [address] [place] [address] [email or web address] 07/17/2025 3:00 PM EST Office Visit [facility] [address] [place] [address] Peña Andrew DO [address] [place] [address] [email or web address] 09/11/2025 12:30 PM EDT Office Visit [facility] [address] [address] Peña Andres MD [address] [place] [address] [email or web address] 09/11/2025 1:00 PM EDT Appointment [address] [address] Peña Andres MD [address] [place] [phone] [email or web address] 09/11/2025 1:30 PM EDT Office Visit [address] [address] Pete Small MD, PhD, MPH [address] [place] [address] [email or web address] 12/30/2025 2:00 PM EDT Office Visit [facility] [address] [place] [address] Yury Vasquez PA-C [address] [place] [email or web address] documented as of this encounter Visit Diagnoses Diagnosis Pseudoexfoliation glaucoma, indeterminate stage- Primary documented in this encounter Additional Health Concerns Infection Onset Date Last Indicated Resolved Time CoV-Presumed 10/19/2021 10/19/2021 11/09/2021 1:23 AM EDT Assessment Noted Time PHQ-2 Depression Total Score: 0 08/06/19 1:20 PM EST documented as of this encounter Care Teams Offal Separator Relationship Specialty Start Date End Date Chris Morales MD [address] [place] [address] [email or web address] PCP - General Internal Medicine 05/24/17 Chris Morales MD [address] [place] [address] [email or web address] Insurance Assigned Provider 10/08/23 Marce Cuellar, SHANTHI [address] [place] [address] Endocrinology 08/06/19 Rizwan Diaz MD [address] [place] [address] Cardiology 10/03/19 Shantanu Cole MD [address] [place] [address] [place] [address] Ophthalmology 11/27/19 Alfonso Peters MD [address] [place] [address] [place] [address] Internal Medicine 05/20/20 Fritz Gotti MD [address] [place] [address] Internal Medicine 05/20/20 Armani Padron MD [address] [place] [phone] Gastroenterology 09/04/20 documented as of this encounter Additional Source Comments The information contained in this document represents components of the legal health record. It is not the complete legal health record.[facility]
--- OUTSIDE RECORDS SUMMARY | 2025-05-06 14:06 | XMS_ITS | Encounter Summary ---
Author Organization [facility] Address [address] [facility] [address] [place] [address] Phone Care Team Providers Care Supervisor Partial Denture Department Name Role Phone Chris Morales MD Unavailable [phone] Chris Morales MD Primary Care Provider [phone] Marce Cuellar NP Unavailable [phone] Rizwan Diaz MD Unavailable [phone] Shantanu Cole MD Unavailable [phone] Alfonso Peters MD Unavailable [phone] Fritz Gotti MD Unavailable [phone] Armani Padron MD Unavailable Encounter Details Date Type Department Care Team (Late st Contact Info) Description 11/22/2020 Transcribe Orders Virtual Department [address] [place] [address] Alexi Atwood MD [address] [facility] [address] [place] [address] [email or web address] Atrial fibrillation, unspecified type (Primary Dx) Social History Tobacco Use Types [...] Description 07/10/2025 1:00 PM EST Office Visit [facility] Internal Medicine [address] [place] [address] Chris Morales MD [address] [place] [address] 07/17/2025 3:00 PM EST Office Visit [facility] [address] [place] [address] Peña Andrew DO [address] [place] [address] 09/11/2025 12:30 PM EDT Office Visit [facility] [address] [address] Peña Andres MD [address] [place] [address] [email or web address] 09/11/2025 1:00 PM EDT Appointment [facility] [address] [address] Peña Andres MD [address] [place] [address] [email or web address] 09/11/2025 1:30 PM EDT Office Visit [facility] [address] [address] Pete Small MD, PhD, MPH [address] [place] [phone] [email or web address] 12/30/2025 2:00 PM EDT Office Visit [facility] [address] [place] [address] Yury Vasquez PA-C [address] [place] [address] Pending Results Name Type Priority Associated Diagnoses Date /Time CARDIOVERSION Cardiac Monitors Routine Atrial fibrillation, unspecified type 12/08/2020 7:03 AM EDT Scheduled Orders Name Type Priority Associated Diagnoses Orde r Schedule CARDIOVERSION Cardiac Monitors Routine Atrial fibrillation, unspecified type Expected: 11/22/2020, Expires: 02/22/2021 documented as of this encounter Visit Diagnoses Diagnosis Atrial fibrillation, unspecified type- Primary documented in this encounter Additional Health Concerns Infection Onset Date Last Indicated Resolved Time CoV-Presumed 10/19/2021 10/19/2021 11/09/2021 1:23 AM EDT Assessment Noted Time PHQ-2 Depression Total Score: 0 08/06/19 1:20 PM EST documented as of this encounter Care Teams Supervisor Partial Denture Department Relationship Specialty Start Date End Date Chris Morales MD [address] [place] [address] PCP - General Internal Medicine 05/24/17 Chris Morales MD [address] [place] [address] [email or web address] Insurance Assigned Provider 10/08/23 Marce Cuellar NP [address] [place] [address] Endocrinology 08/06/19 Rizwan Diaz MD [address] [place] [address] Cardiology 10/03/19 Shantanu Cole MD [address] [place] [address] Dr [address] [place] [address] Ophthalmology 11/27/19 Alfonso Peters MD [address] [place] [address] [place] [address] Internal Medicine 05/20/20 Fritz Gotti MD [address] [place] [address] Internal Medicine 05/20/20 Armani Padron MD [address] [place] [address] Dr Bennett [facility] [place] [id number] Gastroenterology 09/04/20 documented as of this encounter Additional Source Comments The information contained in this document represents components of the legal health record. It is not the complete legal health record.[facility]
--- OUTSIDE RECORDS SUMMARY | 2025-05-06 14:06 | XMS_ITS | Clinical Summary ---
Author Organization [facility] Address [address] [facility] [address] [place] [id number] Phone Care Team Providers Care Financial Management Consultant Name Role Phone Chris Morales MD Unavailable [phone] Chrsi Morales MD Primary Care Provider [phone] Marce Cuellar NP Unavailable Rizwan Diaz MD Unavailable [phone] Shantanu Cole MD Unavailable Alfonso Peters MD Unavailable Fritz Gotti MD Unavailable Armani Padron MD Unavailable Allergies Active Allergy Reactions Criticality Noted Date Comments Amiodarone Other (See Comments) 07/08/2017 Liver function abnl Dulaglutide Diarrhea 12/19/2020 Medications sotalol (BETAPACE) 80 MG tablet Take 80 mg by mouth 2 (two) times a day. Active cyanocobalamin, vitamin B-12, 1000 MCG tablet Take 1,000 mcg by mouth daily. Active blood-glucose Misc meter One touch verio strips, test blood sugars twice daily. 12/24/19 17 Active alcohol PadM Apply topically as needed. 50 each 3 03/20/20 Active apixaban (ELIQUIS) 5 mg tablet Take 5 mg by mouth 2 (two) times a day. Active amLODIPine (NORVASC) 10 MG tablet Take 10 mg by mouth every morning. 03/17/20 Active amoxicillin (AMOXIL) 500 MG capsule Take 4 capsules by mouth. 1 hour prior to dental work 06/01/20 23 Active blood-glucose meter,continuous (DEXCOM G7 TURN SEWER) MiscIndications:Typ e 2 diabetes mellitus with microalbuminuria, with long-term current use of insulin by Miscellaneous route as needed. 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 3 each 01/10/20 24 Active insulin pen needles, disposable, ([employer] ULTRA-FINE MINI PEN NEEDLE) 31 gauge x 16 NdleIndications:Typ e 2 diabetes mellitus with hyperglycemia INJECT 1 EACH UNDER THE SKIN EVERY MORNING. DX: E11.65 TYPE 2 DM 100 each 5 04/18/20 24 Active ONETOUCH VERIO Strp stripsIndications:T ype 2 diabetes mellitus with hyperglycemia USE TO TEST 3 TIMES A DAY BEFORE MEALS 200 strip 3 08/22/19 25 Active timolol (TIMOPTIC) 0.5 % ophthalmic solutionIndications :Pseudoexfoliation glaucoma, indeterminate stage Place 1 drop into each eye daily. 15 mL 3 09/20/19 25 Active lisinopril (PRINIVIL,ZESTRIL) 30 MG tabletIndications:E ssential hypertension TAKE 1 TABLET BY MOUTH EVERY DAY 90 tablet 3 12/25/19 25 Active empagliflozin (JARDIANCE) 25 mg tabletIndications:T ype 2 diabetes mellitus with microalbuminuria, with long-term current use of insulin,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 mild 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, with long-term current use of insulin Take 1 tablet (25 mg total) by mouth daily. 90 tablet 03/12/20 25 Active insulin glargine (BASAGLAR KWIKPEN U-100 INSULIN) 100 unit/mL (3 mL) InPn injection penIndications:Type 2 diabetes mellitus with microalbuminuria, with long-term current use of insulin,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 mild 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, with long-term current use of insulin Inject 14 Units under the skin daily. 15 mL 3 03/12/20 25 2025 Active metFORMIN (GLUCOPHAGE-XR) 500 MG 24 hr tabletIndications:T ype 2 diabetes mellitus with microalbuminuria, with long-term current use of insulin,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 mild 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, with long-term current use of insulin Take 2 tablets (1,000 mg total) by mouth 2 (two) times a day with meals. 360 tablet 03/12/20 25 Active pioglitazone (ACTOS) 30 MG tabletIndications:T ype 2 diabetes mellitus with microalbuminuria, with long-term current use of insulin,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 mild 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, with long-term current use of insulin Take 1 tablet (30 mg total) by mouth daily. 90 tablet 03/12/20 25 Active atorvastatin (LIPITOR) 20 MG tabletIndications:H yperlipidemia LDL goal <100 TAKE 1 TABLET BY MOUTH EVERY DAY 90 tablet 3 03/15/20 25 Active brimonidine (ALPHAGAN) 0.2 % ophthalmic solutionIndications :Pseudoexfoliation glaucoma, indeterminate stage Place 1 drop into each eye 2 (two) times a day. 45 mL 6 03/28/20 25 Active latanoprost (XALATAN) 0.005 % ophthalmic solutionIndications :Pseudoexfoliation glaucoma, indeterminate stage Place 1 drop into each eye nightly at bedtime. 22.5 mL 3 03/28/20 25 Active insulin detemir U-100 (LEVEMIR FLEXTOUCH U-100 INSULN) 100 unit/mL (3 mL) InPn injection penIndications:Type 2 diabetes mellitus with hyperglycemia, with long-term current use of insulin Inject 20 Units under the skin daily. 15 each 11 02/20/20 19 2019 Disconti nued(No longer taking) Active Problems Problem Noted Date Diagnosed Date Other hemochromatosis 01/11/2024 Overview (01/11/2024): Follows with Dr. Gotti in [place]. Last visit December 2023, stable getting phlebotomy. Dr. Gotti was referring to GI to rule out GI occult blood loss. 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 See media scan dated 02/06/24 Candidal balanitis 12/27/2022 Assessment & Plan (12/27/2022 12:34 PM EDT): He developed a yeast infection most likely from the use of Jardiance and high carb meals and resulting glucosuria. I prescribed fluconazole 150 mg one-time dose. Type 2 diabetes mellitus with diabetic neuropath y 09/15/2021 Type 2 diabetes mellitus wit h microalbuminuria, with long-term current use of insulin 08/10/2021 Assessment & Plan (01/10/2024 11:37 AM EDT): Uncontrolled. Hemoglobin A1c is 8.1%. He should continue his medications that he is presently using I will add pioglitazone. If he finds that with the addition of pioglitazone his fasting sugars are dropping then he needs to cut back on the Lantus. He will return for follow-up in 3 months. I will prescribe Dexcom CGM. Once he gets the Dexcom CGM he is going to need to make an appointment with the physician assistant office manager so that they can get him started on this device. So he needs to call him to schedule an appointment with the physician assistant office manager which is separate from my appointments. Assessment & Plan (10/11/2023 12:13 PM EDT): Fair control. Based on the hemoglobin A1c of 7.9 but this may be falsely low. His fasting glucose is 140. One of the problems with monitoring his glucose levels is that he does not check it in the afternoon or evening. His states that when she has to check his glucose he states he just finished having a snack and of course they can bother to check the glucose because this cannot be high. I suggested that in those cases he should check 2 hours after the snack or meal. It should drop below 180 and if is not dropping below 180 means that he is having poor glycemic control. At this point I asked him to increase the Lantus from 20 to 22 units continue Jardiance and metformin. Assessment & Plan (04/14/2023 12:11 PM EDT): Fair control hemoglobin A1c of 7.8%. His glucose levels are highly variable and is very dependent on his carbohydrate intake. I suggested possibly tightening his glycemic control with pioglitazone 15 mg daily. However hemoglobin A1c of 7.8% for his age is acceptable. He informs me that he rather not take any more medications. I do not see the point in increasing the Lantus because sometimes his fasting glucose high range. If they are elevated is because of high carbohydrate intake the night before. So at this point I am not going to make any changes he should return for follow-up in 6 months. Assessment & Plan (12/27/2022 12:30 PM EDT): Uncontrolled hemoglobin A1c 9.1%. He is having postprandial hyperglycemia but he is eating very high carbohydrate meals. I suggested prescribing a GLP-1 agonist. He stated that he rather cut out high carbohydrate meals. At that point I suggested using pioglitazone which is a pill but he really does not want to try anything new. He is going to work on his diet. I would not make any changes to his regimen. Assessment & Plan (09/09/2022 12:07 PM EST): Uncontrolled. The hemoglobin A1c remains at 8.3%. I am increasing Jardiance to 25 mg which apparently Lantus 20 units at night and vomited 4 tablets daily. He should repeat lab work prior to the follow-up visit. Fasting glucose for the most part is good. I suspect he is having postprandial hyperglycemia. Jardiance should help with this. GFR when last checked was good I am requesting another basic metabolic panel. He appears to be tolerating Jardiance without any adverse complaints. I reminded him to drink plenty of water and to use proper hygiene in order to prevent genital mycotic infections. Assessment & Plan (08/10/2021 2:41 PM EST): Improved glycemic control the hemoglobin A1c dropped from 9.5 to 7.7%. He should continue on Lantus 26 units because his fasting glucose for the most part are fine. The fasting glucose only elevated when he has a high carbohydrate meal the night before. The problem is postprandial hyperglycemia he does eat a lot of high carbohydrate meals even though the quantities are not great. Unfortunately he could not tolerate Trulicity which would have helped tremendously with that. He can increase the Metformin up to 4 tablets a day because he has tolerated it in the past. I think he may do very well with SGLT2 inhibitor but at this point I am not sure if to start it now or wait to see if just adding an extra tablet of Metformin will be good enough to drop his A1c below 7%. We will try this first and if his A1c does not drop below 7% then I can add Jardiance 10 mg to his regimen that has cardiovascular benefits and renal benefits as well. Type 2 diabetes mellitus wit h both eyes affected by mild 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, with long-term current use of insulin 08/10/2021 Assessment & Plan (03/12/2025 1:38 PM EDT): Improved glycemic control hemoglobin A1c 7.0% based on the last 2 weeks he is closer to 7.5%. He still having postprandial hyperglycemia the CGM shows 61% in target range. We need 70% to prevent diabetic retinopathy. However he was going low overnight so we need to decrease the Lantus again to 14 units and I am going to increase the pioglitazone again to 30 mg he should continue Jardiance and metformin. I informed him that with this new regimen if he continues to have lows overnight he can decrease the Lantus to 10. Assessment & Plan (11/14/2024 1:40 PM EDT): Improve glycemic control. Hemoglobin A1c dropped from 8.2 to 7.5%. This appears to be an age-appropriate hemoglobin A1c since the patient is 79 years old. He still has postprandial hyperglycemia. And not having hypoglycemia often. Although I think that he needs to decrease the Lantus to 18 units because he does tend to go lower overnight. However the glucose levels are elevated and the evening throughout the day. Apparently he does not eat much but the foods that he eats are very high in carbs and in the evening he tends to be sedentary especially. So we will go up on the pioglitazone to 30 mg. I told him that if he finds that he is going low overnight he can decrease the Lantus even further. Assessment & Plan (07/26/2024 1:53 PM EST): His hemoglobin A1c is 7.9%. Continues to have elevated glucose levels I cannot increase the Lantus because he will drop his overnight glucose levels. He is already on the maximum dose of Jardiance and metformin. He does not want injections he is going to try the pioglitazone again. We just need to decrease that hemoglobin A1c slightly to 7.5% and he should be well. He needs to work on his diet. He does drink a lot of coffee which causes insulin resistance so that will increase his glucose levels. He also drinks [id number] with it which will increase the glucose level. He does have cereal which is high in carbohydrates. So all these foods cause elevations in glucose. He is going to attend the gym which should helps somewhat. But real things that he can do is decrease the carb intake because he is not eating a lot but the foods that he is eating a high in carbohydrate. Assessment & Plan (04/04/2024 1:59 PM EDT): Uncontrolled. His hemoglobin A1c is 7.8% but he is anemic so this is likely falsely low. His GMI is 8.2% based on his glucose levels. He is 79 years old and does not appear to have a lot of comorbid conditions so maybe we can keep his hemoglobin A1c below 7.5%. Given age and comorbidities I do not recommend aggressive A1c goals of less than 7%. The [place] [employer] recommends a goal of A1c of 7.5 to 8% in older patients with moderate comorbidities and life expectancy less than 10 years. The [place] [employer] recommends a goal of less than 7.5% in patients with few comorbidities and significant life expectancy, a goal of less than 8% in patients with intermediate life expectancy and multiple chronic comorbidities, and a more relaxed goal of 8-8.5% in older patients with very complex medical issues/poor health and a limited health expectancy. I suggest the patient continues his current medications and start pioglitazone 15 mg. But if we find that his glucose levels go low overnight we may have to decrease the Lantus a bit. The patient informs me that he had 2 episodes of glucose in the 70 mg/dL range and it was trending down. He treated it with peanut butter cracker and juice. Assessment & Plan (11/10/2021 11:24 AM EDT): The patient's hemoglobin A1c has increased from 7.7% to 7.8% but the addition of metformin up to 4 tablets has decreased some of the postprandial hypoglycemia but not enough. His has noticed that he has had low glucose levels as low as 60 mg/dL in the morning which are not consistent. So I think that this is due to Lantus. Since at this point I am going to add Jardiance 10 mg to improve postprandial hyperglycemia I will have to decrease the Lantus to prevent fasting hypoglycemia. So I asked the patient to decrease the Lantus to 20 units continue metformin 4 tablets a day and start Jardiance 10 mg daily. He will return in 3 months. If he continues to have hypoglycemia despite decreasing the Lantus to 20 units they should contact me preferably through the patient portal but the have my permission to decrease it by 2 units further if need be. I informed the patient and his that I am concerned with fasting glucose less than 70 mg/dL. The fasting sugar should be anywhere from 70 to 120 mg/dL. Cellulitis and abscess of hand 11/04/2020 Assessment & Plan (11/09/2020 12:02 PM EDT): Resolved. No erythema of the right hand. Early in hospital stay patient developed a mild erythema streaking on the right hand where there was an IV. With the transition to Zosyn on 11/03 this resolved. Diarrhea 10/25/2020 Dehydration 10/25/2020 Acute cholecystitis 10/25/2020 Assessment & Plan (11/09/2020 11:58 AM EDT): Acute cholecystitis by CT abdomen, ultrasound and HIDA scan. -Status post cholecystostomy drain in IR on 10/29. cholecystectomy, initially laparoscopic and then by open laparotomy. Also required an omental patch to a suspected duodenal perforation. Postop day #6 Tolerating full liquids with no nausea or vomiting. No abdominal pain. Seen by surgery and okay to advance diet as tolerated. Drain removed today. Recommend continue antibiotics for several more days given leukocytosis of 14.4. (Of note patient's white count has been in the 4 teens for 10 days). -White count now improved to 12.3 -Advance to low residue diet. -Continue antibiotics as per surgery. 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 x / OS . x Optic nerve structure and function: Abnormal retinal nerve fiber layer both eyes at presentation. Visual field mostly normal left eye. Medications and intolerances: Arrived on latanoprost, Cosopt, brimonidine Procedures and Complications: Xen right eye 10/2020 ([place]) - IOP back up 04/2021 - needling in clinic 07/2021. Relevant history and problems: Proliferative diabetic retinopathy (Avastin). Assessment & Plan (03/28/2025 1:02 PM EDT): Pseudoexfoliation glaucoma: Intraocular pressure much better right eye, now no light perception, had Xen and cyclophotocoagulation right eye. Left eye: stable borderline optic nerve findings Continue brimonidine, latanoprost, timolol, both eyes, could taper right eye but he prefers to use Cystoid macular edema followed by Dmitry (left eye) Assessment & Plan (08/15/2024 1:01 PM EST): Pseudoexfoliation glaucoma: Intraocular pressure much better right eye, now no light perception, had Xen and cyclophotocoagulation right eye. Left eye: stable borderline optic nerve findings Continue brimonidine, latanoprost, timolol, both eyes, could taper right eye but he prefers to use Cystoid macular edema followed by Dmitry (left eye) Assessment & Plan (12/12/2023 11:29 AM EDT): Intraocular pressure much better right eye, now no light perception or bare light perception right eye, had Xen and cyclophotocoagulation right eye. Left eye: stable borderline optic nerve findings Continue brimonidine, latanoprost, timolol, both eyes, could taper right eye but he prefers to use Cystoid macular edema followed by Dmitry (left eye) Assessment & Plan (06/14/2023 1:33 PM EST): Intraocular pressure much better right eye, now no light perception Continue brimonidine, latanoprost, timolol, both eyes, could taper right eye. Cystoid macular edema followed by Dmitry (left eye) Assessment & Plan (02/10/2023 2:31 PM EDT): Intraocular pressure much better right eye Continue brimonidine, latanoprost, timolol, both eyes. Could have repeat cyclophotocoagulation, , they do now want surgery right eye even if he slowly loses vision. Cystoid macular edema followed by Dmitry (left eye) Assessment & Plan (09/06/2022 4:16 PM EST): Intraocular pressure much better right eye, they do now want surgery right eye even if he slowly loses vision. Continue brimonidine, latanoprost, timolol, both eyes. Check in 3 months, could have repeat cyclophotocoagulation cystoid macular edema followed by Dmitry (left eye) Assessment & Plan (05/12/2022 1:02 PM EST): Intraocular pressure still up right eye but better today. They would like to watch at this intraocular pressure knowing that may slowly lose vision. Continue brimonidine, latanoprost, timolol, both eyes. Check in 3 months, could have repeat cyclophotocoagulation Left eye Velásquez Visual Field likely artefact. Repeat next visit. cystoid macular edema followed by Dmitry (left eye) Assessment & Plan (03/18/2022 1:49 PM EDT): Intraocular pressure up right eye will add brimonidine, now take latanoprost, timolol, and brimonidine both eyes. Check in 2 months, could have cyclophotocoagulation cystoid macular edema followed by Dmitry (left eye) Assessment & Plan (07/27/2021 12:13 PM EST): Continue latanoprost OU QHS, brimonidine OU BID, timolol 0.5% OD BID prednisolone acetate 1% taper I discussed the risks/benefits/alternative of trabeculectomy surgery including but not limited to the following: Infection, Bleeding, need for additional/repeat procedure, lack of desired IOP lowering, rare loss of vision. After this discussion, the patient elected to proceed. To OR for trabeculectomy (after failed Xen) right eye. Assessment & Plan (07/13/2021 12:09 PM EST): Continue latanoprost OU QHS, brimonidine OU BID, timolol 0.5% OD daily Needling of Xen bleb: The procedure was discussed with and agreed to by the patient. Proparacaine was applied followed by betadine 5% solution and lidocaine gel. A lid speculum was inserted and a 1.5 inch 25g needle was inserted under the conjunctiva away from the filtering bleb and advanced, lysing adhesions. The needle and speculum were removed and the eye was rinsed before applying a drop of antibiotic. Restart prednisolone acetate 1% QID Assessment & Plan (06/01/2021 2:34 PM EST): Continue latanoprost OU QHS, brimonidine OU BID, add timolol 0.5% OD daily Assessment & Plan (04/27/2021 11:08 AM EDT): Restart right eye - latanoprost OU QHS, brimonidine OU BID Assessment & Plan (01/23/2021 2:46 PM EDT): Continue latanoprost OS QHS, brimonidine OS BID Xen right eye 10/21: No follow up for 2 months - returned with IOP of 50 right eye. Needling right eye 12/26 - IOP better initially. Stop prednisolone acetate Ocular pressure BID Assessment & Plan (01/02/2021 12:45 PM EDT): Continue latanoprost OS QHS, brimonidine OS BID Xen right eye 20: No follow up for 2 months - returned with IOP of 50 right eye. Needling right eye 6/25 - IOP better initially. prednisolone acetate 1% BID Assessment & Plan (12/26/2020 3:48 PM EDT): Continue latanoprost OS QHS, brimonidine OS BID Xen right eye 20: No follow up for 2 months - returned with IOP of 50 right eye. Needling right eye 6/25 - IOP better initially. Assessment & Plan (10/22/2020 10:57 AM EDT): Continue latanoprost OS QHS, brimonidine OS BID Xen right eye 10/21: Pred Forte 1% q 2hours. Patient given postoperative instructions and handout and told to call immediately for pain, redness, or decreasing vision. Shield/eye protection at all times. Stop all glaucoma drops in operative eye and any oral glaucoma medications. Patient is to continue all drops in the unoperated eye as previously directed. Assessment & Plan (09/17/2020 9:42 AM EDT): Continue Cosopt OD BID, latanoprost OU QHS, brimonidine OU BID Please schedule Timur Multani for Procedure: Xen implant ab externo Laterality: right eye Surgeon: Collni Erickson MD, PhD Urgency*: Within 1 month Diagnoses associated with this procedure for booking: ICD-10-CM 1. Pseudoexfoliation glaucoma, indeterminate stage H40.1494 Anesthesia: MAC plus topical Case Duration: 30 minutes operating time Blood thinners: This patient is on one or more blood thinners and should continue them Special considerations: None *Please alert me if unable to schedule the case within this time frame Assessment & Plan (07/29/2020 10:55 AM EST): Continue Cosopt OD BID, latanoprost OU QHS, brimonidine OU BID Likely needs surgery right eye but will give drops a chance to help for a bit. Assessment & Plan (07/15/2020 11:21 AM EST): Continue Cosopt OD BID, latanoprost OU QHS, brimonidine OU BID Will get Avastin right eye today. Likely needs surgery right eye but will give drops a chance to help for a bit. Hyperlipidemia LDL goal <100 12/07/2019 Assessment & Plan (03/12/2025 1:39 PM EDT): Controlled based on new guidelines LDL has to be less than 70 and his level was 66 mg/dL. So he should continue atorvastatin 20 mg daily. Assessment & Plan (11/14/2024 1:12 PM EDT): Controlled. LDL 66 mg/dL continue atorvastatin no changes required. Assessment & Plan (07/26/2024 1:54 PM EST): Controlled. LDL 67 mg/dL. Continue atorvastatin 20 mg. Assessment & Plan (01/10/2024 11:37 AM EDT): Controlled LDL 67 mg/dL on atorvastatin no changes required. Assessment & Plan (10/11/2023 12:10 PM EDT): Controlled. LDL 67 mg/dL. Continue atorvastatin 20 mg no changes. Assessment & Plan (04/14/2023 11:58 AM EDT): Controlled. LDL 55 mg/dL on atorvastatin 20 mg. No changes required. Assessment & Plan (12/27/2022 12:30 PM EDT): Controlled. LDL 67 mg/dL continue atorvastatin 20 mg. No changes. Assessment & Plan (09/09/2022 12:08 PM EST): Controlled. LDL 55 mg/dL on atorvastatin 20 mg no changes required but he does need to repeat a lipid panel fasting. Assessment & Plan (11/10/2021 11:26 AM EDT): LDL was 59 mg/dL which is controlled. He should continue Lipitor 20 mg. Lipid panel has already been requested by his primary care physician. Assessment & Plan (08/10/2021 2:37 PM EST): Controlled. LDL was 59 mg/dL on atorvastatin 20 mg. No changes required. senior living (current) use of insulin 12/07/2019 Essential hypertension 07/11/2017 Assessment & Plan (11/09/2020 11:59 AM EDT): BPs remains well controlled with metoprolol and Cardizem. Lisinopril and hydrochlorothiazide are currently on hold while patient is on beta-blockers and calcium channel blockers for A. Fib. -Plan is to resume sotalol this evening. -Monitor blood pressures with med adjustments. Nocturia 07/11/2017 Osteoarthritis 07/11/2017 Atrial fibrillation 07/11/2017 Assessment & Plan (11/09/2020 11:56 AM EDT): History of atrial fibrillation, on chronic anticoagulation with warfarin and antiarrhythmic therapy He developed A. fib with RVR on a.m. of 10/28. A. fib has been uncontrolled on max IV Cardizem at 15 mg/h and Lopressor 5 mg IV every 4 hours as patient is n.p.o. given bowel perforation. He received a loading dose of digoxin on 10/28. - echocardiogram on 10/29/2020-normal LVEF. No wall motion abnormalities. No significant alveolar disease. Postoperatively patient continued to have difficulty with rate control. 11/06 telemetry reveals A. fib sustained in the 160s to 170s this morning. Patient was asymptomatic, cardiology and recommendation was started on amiodarone and continued on metoprolol. It was noted that his primary cleat layer was at [facility]. On 11/[address] Atwood of [facility] who did well and given the patient is not anticoagulated. Patient taken off amiodarone; restarted on Cardizem drip Lopressor dose increased to 10 mg IV every 4 hours. Patient given IV dig load. -Overnight patient had a pause of 2.9 seconds Lopressor held and heart rates once again into the 160s. -Case discussed with patient's cardiology team and patient placed on oral Lopressor tartrate 25 mg p.o. every 6 hours.Continued on Cardizem drip 15 mg/h Patient remained stable today rates now well controlled on current regimen. -Start anticoagulation with Eliquis 5 mg twice daily -Restart sotalol tonight and DC Cardizem. -If patient not rate controlled on 11/10/2020 plan is for JHOAN with DC cardioversion. -N.p.o. after midnight on Tuesday. -Anticoagulation with Eliquis 5 mg twice daily to start on 11/09/2020. Pure hypercholesterolemia 07/11/2017 Type 2 diabetes mellitus with hyperglycemia 02/2018 Assessment & Plan (02/10/2024 10:45 AM EDT): Patient brought in their [employer] G7 CGM to be shown how to use it. He was shown how to set up and place the sensor. He demonstrated good understanding via teach back. He placed the sensor to the back of their arm without any issues. Showed him how to use the repair welder. He was able to find the sensor code and enter into the repair welder to activate the sensor. Reviewed all of the available menu options. Reviewed the alarms on the repair welder. He will call with any issues managing their glucose levels. Assessment & Plan (11/09/2020 12:02 PM EDT): Blood sugars were initially elevated with the stress of surgery but were well controlled. On Lantus 30 units nightly and prandial insulin 8 units 3 times daily. 11/08 patient had a low blood sugar to 46. Patient was asymptomatic with hypoglycemia. Prandial insulin and Lantus discontinued. Blood sugars are within normal limits ranging from 80-155. -Continue to hold scheduled insulin for now. Patient may need restart as diet is advanced. -POC 4 times daily sliding scale coverage. Vitamin B12 deficiency 07/11/2017 Encounters Date Type Department Care Team Description 05/03/2025 Telephone [facility] [address] [place] [address] Peña Andrew DO Medication Problem 03/28/2025 12:40 PM EDT Office Visit [address] [place] [address] Pete Small MD, PhD, MPH Pseudoexfoliation glaucoma, indeterminate stage (Primary Dx) 03/25/2025 Telephone [facility] Internal Medicine [address] [place] [address] Chris Morales MD Medication Refill 03/15/2025 Refill [facility] Internal Medicine [address] [place] [address] Chris Morales MD Medication Refill 03/12/2025 1:20 PM EDT Office Visit [facility] [address] [place] [address] [place] [address] Peña Andrew DO Hyperlipidemia LDL goal <70 (Primary Dx); Type 2 diabetes mellitus with microalbuminuria, with long-term current use of insulin; 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 mild 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, with long-term current use of insulin 03/08/2025 10:10 AM EDT - 03/08/2025 11:59 PM EDT Hospital Encounter [facility] [address] [place] [address] Peña Andrew DO Discharge Disposition: Home or Self Care 02/09/2025 Refill [facility] [address] [address] Pete Small MD, PhD, MPH Medication Refill 02/09/2025 Refill [facility] [address] [place] [address] [place] [address] Peña Andrew DO Medication Refill from Last 3 Months Immunizations Immunization Administration Dates Next Due COVID-19 (Pre-04/25) Moderna Vaccine, mRNA, PF 09/22/2020,08/25/2020 INFLUENZA, SPLIT VIRUS, TRIV ALENT W/ PRESERVATIVE IM 04/03/2012 Influenza High-Dose Quadriva lent Preservative Free IM 04/11/2023,05/10/2022,05/14/2021,05/20 Influenza High-Dose Trivalen t Preservative Free IM 04/03/2024,04/03/2019,03/30/2018,06/10,05/10/2014,05/18/2013 Pneumococcal conjugate PCV13 10/17/2015 Pneumococcal polysaccharide PPSV23 05/10/2014, Td (adult) 5 Lf Tetanus Toxo id, PF, Adsorbed 06/03/2005 Tdap 09/19/2016 Family History Medical History Relation Comments Diabetes Father Diabetes mellitus Father Diabetes Mother Diabetes mellitus Mother Glaucoma Neg Hx Macular degeneration Neg Hx Relation Status Comments Father Mother Social History Tobacco Use Types Packs/Day Years Used Date Smoking Tobacco: Never Smokeless Tobacco: Never Tobacco Cessation:Counseling Given: Not Answered Alcohol Use Standard Drinks/Week Comments Not Currently 0 (1 standard drink = 0.6 oz pur e alcohol) has not drank since 1978 Education Answer Date Recorded Are you interested in more education? Not on sage e 10/29/2022 Are you concerned about learning? Not on file 10/29/2022 No 10/29/2022 No 10/29/2022 Digital Access Answer Date Recorded No 11/28/2022 No 11/28/2022 Reliable internet access at home? Not on file 11/28/2022 Device with a working camera? Not on file Intimate Partner Violence Answer Date R ecorded Denied Basic Needs Not on file 12/25/2024 In the past 12 months have y ou been in a relationship with a person who hurts, threatens, or tries to control you? No 12/25/2024 Worried food would run out Not on file 12/25 In the past 12 months have y ou been in a relationship with a person who hurts, threatens, or tries to control you? No 12/25/2024 Sex and Gender Information Value Date Recorded Sex Assigned at Male 10/19/2020 4:58 PM EDT Legal Sex Male 10:08 PM EDT Gender Identity Male 10/19/2020 4:58 PM EDT Sexual Orientation Straight 10/19/2020 5: 02 PM EDT Last Filed Vital Signs Vital Sign Reading Time Taken Comments Blood Pressure 116/70 03/12/2025 1:24 PM EDT Pulse 82 03/12/2025 1:24 PM EDT Temperature 36.9 C (98.5 F) 12/25/2024 12:53 PM EDT Respiratory Rate 20 12/25/2024 12:53 PM EDT Oxygen Saturation 99% 03/12/2025 1:24 PM EDT Inhaled Oxygen Concentration - - Weight 65.8 kg (145 lb) 03/12/2025 1:24 PM EDT Height 162.1 cm (5' 3.82 ) 03/12/2025 1:24 PM ED T Body Mass Index 25.03 03/12/2025 1:24 PM EDT Plan of Treatment Upcoming Encounters Date Type Department Care Team (Late st Contact Info) Description 07/10/2025 1:00 PM EST Office Visit [facility] Internal Medicine [address] [place] [address] Chris Morales MD [address] [place] [address] [email or web address] 07/17/2025 3:00 PM EST Office Visit [facility] [address] [place] [address] Peña Andrew DO [address] [place] [address] [email or web address] 09/11/2025 12:30 PM EDT Office Visit [facility] [address] [address] Peña Andres MD [address] [place] [phone] [email or web address] 09/11/2025 1:00 PM EDT Appointment [facility] Glaucoma [address] [address] Peña Andres MD [address] [place] [phone] [email or web address] 09/11/2025 1:30 PM EDT Office Visit [address] [address] Pete Small MD, PhD, MPH [address] [place] [address] [email or web address] 12/30/2025 2:00 PM EDT Office Visit [facility] Internal Medicine [address] [place] [address] Yury Vasquez PA-C [address] [place] [address] [email or web address] Health Maintenance Due Date Last Done Comments ZOSTER VACCINES (1 of 2) 02/22/1996 RSV VACCINE (1 - 1-dose 75+ series) 2021 INFLUENZA VACCINE (#1) 2025 , 04/11/2023, 04/11/2023, Additional history exists COVID-19 VACCINE ( season) 2025 04/24/2021, 09/22/2020, 08/25/2020 HEMOGLOBIN A1C 09/05/2025 03/08/2025, 0508/2024, 08/10/2024, Additional history exists BLOOD PRESSURE 09/09/2025 03/12/2025 LIPID PANEL 11/12/2025 11/12/2024, 04/0 11/2023, 12/22/2022, Additional history exists CREATININE LEVEL 12/25/2025 12/25/2024, 06/2025, 08/10/2024, Additional history exists DEPRESSION SCREENING 12/25/2025 12/25/2024 POTASSIUM LEVEL 12/25/2025 12/25/2024, 0508/2024, 08/10/2024, Additional history exists DIABETIC EYE EXAM 03/28/2026 03/28/2025, , 03/28/2025, Additional history exists Adult Td,Tdap Booster 09/19/2026 09/19/2016, 005 PNEUMOCOCCAL VACCINES (50+ years) Completed 10/17/2015, 05/10/2014, 03/04/2007 HEPATITIS C SCREENING Completed 08/02/2019, 01/30/2 020 SMOKING STATUS SCREENING (Once After 26 Yrs) Completed 12/25/2024 HEPATITIS A VACCINES Aged Out No long er eligible based on patient's age to complete this topic HIB VACCINES Aged Out No longer eligi ble based on patient's age to complete this topic MENINGOCOCCAL VACCINES (ACWY) Aged Out No longer eligible based on patient's age to complete this topic MENINGOCOCCAL VACCINES (B) Aged Out N o longer eligible based on patient's age to complete this topic Medical Devices Implanted Type Area Pivot End Polisher Device Identifier Shelf Expiration Date Model / Serial / Lot Iol Bilateral: Eye Thr Left: Hip Implant Xen 45 Gel Stent - [id number] Implanted:Qty: 1 on 10/21/2020 by Collin Erickson MD, PhD at [facility] 12/01/2022 [id number] / [id number] / [id number] Procedures Procedure Name Priority Date/Time Associated Diagnosis Comments VELÁSQUEZ VISUAL FIELD - OS - LEFT EYE Routine 03/28/2025 12:32 PM EDT Pseudoexfoliation glaucoma, indeterminate stage HEMOGLOBIN A1C Routine 03/08/2025 10:35 AM EDT Type 2 diabetes mellitus with hyperglycemia, with long-term current use of insulin Type 2 diabetes mellitus with microalbuminuria, 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, with long-term current use of insulin BASIC METABOLIC PANEL (BMP) Routine 12/25/2024 1:56 PM EDT Essential hypertension LIPID PANEL Routine 11/12/2024 10:06 AM EDT Type 2 diabetes mellitus with hyperglycemia, with long-term current use of insulin Hyperlipidemia LDL goal <100 Type 2 diabetes mellitus with microalbuminuria, 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 Strategy: [place] - Standard. Reliability: Good. Change: Possibly worse. Findings: Borderline, Non-specific defects. Testing performed by: Andreas Mariscal Pete Small MD, PhD, MPH OPHTHALMOLOGY IMAG ING Final Result * (ABNORMAL) Hemoglobin A1c (03/08/2025 10:35 AM EDT) HEMOGLOBIN A1C 7.0(H) 4.3 - 5.8 % [facility] Blood 03/08/2025 10:3 5 AM EDT 03/08/2025 10:37 AM EDT Peña Andrew DO LAB BLOOD BKR ORDERABLES Final R esult [facility] [address] [place], [place] [id number] * (ABNORMAL) Basic metabolic panel (12/25/2024 1:56 PM EDT) SODIUM 137 133 - 146 mmol/L [facility] CHLORIDE 101 96 - 108 mmol/L [facility] POTASSIUM 4.4 3.3 - 5.1 mmol/L [facility] CO2 22 21 - 35 mmol/L [facility] BUN 16 6 - 19 mg/dL [facility] CREATININE 0.90 0.5 - 1.5 mg/dL [facility] GLUCOSE 106(H) 70 - 99 mg/dL [facility] CALCIUM 9.6 8.4 - 10.3 mg/dL [facility] EGFR 87 >59 mL/min/1.7 3m2 [facility] Comment:Estimated glomerular filtration rate calculated using the CKD-EPI refit equation. ANION GAP 18 10 - 20 mmol/L [facility] Blood 12/25/2024 1:56 PM EDT 12/25/2024 1:58 PM EDT us Chris Morales MD LAB BLOOD BKR ORDERABLES Brittny l Result Performing Organization Address [facility] Co de Phone Number [address] [address] * Lipid panel (11/12/2024 10:06 AM EDT) HDL 33 mg/dL [facility] Comment: Interpretation <40 mg/dL: Low HDL cholesterol (major risk factor for CHD) Greater than or equal to 60 mg/dL: High HDL cholesterol ( negative risk factor for CHD) HDL - cholesterol is affected by a number of factors, e.g. smoking, excerise, hormones, sex and age. CHOLESTEROL 119 0 - 240 mg/dL [facility] TRIGLYCERIDES 98 30 - 160 mg/dL [facility] LDL 66 50 - 129 mg/dL [facility] Comment: LDL levels in terms of risk for coronary heart disease: <100 mg/dL: Optimal 100-129 mg/dL: Near or above optimal 130-159 mg/dL: Borderline high 160-189 mg/dL: High >190 mg/dL: Very High CARDIAC RISK RATIO 3.6 3.4 - 5.0 C [facility] Blood 11/12/2024 10:0 6 AM EDT 11/12/2024 10:18 AM EDT us Peña Andrew DO LAB BLOOD BKR ORDERABLES Final R esult Performing Organization Address City/[facility]/ZIP Co de Phone Number [address] [address] * DIABETES EYE EXAM FOR RESULT ENTRY ONLY (02/04/2020) us Historical Provider HEALTH MAINTENANCE Edited Result - Final * Hepatitis C antibody, qualitative (08/02/2019 9:35 AM EST) HCV NON-REACTIV E NON-REACTI VE [facility] Blood 08/02/2019 9:35 AM EST 08/02/2019 9:37 AM EST us Chris Morales MD LAB BLOOD BKR ORDERABLES Brittny mike Result [facility] [address] [place] [address] from Last 3 Months or Most Recently Relevant to Health Maintenance Insurance MEDICARE PART A & B [facility] MEDICARE SUPPLEMENT MEDICARE PART A & B [facility] MEDICARE SUPPLEMENT MEDICARE PART A & B [facility] MEDICARE SUPPLEMENT MEDICARE PART A & B [facility] MEDICARE SUPPLEMENT MEDICARE PART A & B [facility] MEDICARE SUPPLEMENT MEDICARE PART A & B [facility] MEDICARE SUPPLEMENT MEDICARE PART A & B [employer] MEDICARE SUPPLEMENT MEDICARE PART A & B [employer] MEDICARE SUPPLEMENT MEDICARE PART A & B [facility] MEDICARE SUPPLEMENT Advance Directives For more information, please contact: [phone] (9AM - 5PM [facility], Tuesday-Tuesday) Documents on File Type Date Recorded Patient Director [employer] Proxy 10/22/2020 * Full Code (Latest Code Status on File) Date Activated Date Inactivated Comments 10/25/2020 2:20 AM Question Answer Comments Code Status Confirmed With: PatientFamily Care Teams Financial Management Consultant Relationship Specialty Start Date End Date Chris Morales MD [address] [place] [address] [email or web address] PCP - General Internal Medicine 05/24/17 Chris Morales MD [address] [place] [address] [email or web address] Insurance Assigned Provider 10/08/23 Marce Cuellar NP [address] [place] [address] Endocrinology 08/06/19 Rizwan Diaz MD [address] [place] [address] Cardiology 10/03/19 Shantanu Cole MD [address] [place] [address] Dr [address] [place] [address] Ophthalmology 11/27/19 Alfonso Peters MD [address] [place] [address] [place] [address] Internal Medicine 05/20/20 Fritz Gotti MD [address] [place] [address] Internal Medicine 05/20/20 Armani Padron MD [address] [place] [address] Dr Bennett [facility] [place] [id number] Gastroenterology 09/04/20 Additional Source Comments The information contained in this document represents components of the legal health record. It is not the complete legal health record.[facility]
--- OUTSIDE RECORDS SUMMARY | 2025-05-06 14:06 | XMS_ITS | Encounter Summary ---
Author Organization [facility] Address [address] [place] [address] Phone Care Team Providers Care Narcotics Detective Name Role Phone Chris Morales MD Unavailable [phone] Chris Morales MD Primary Care Provider [phone] Marce Cuellar NP Unavailable Rizwan Diaz MD Unavailable [phone] Shantanu Cole MD Unavailable [phone] Alfonso Peters MD Unavailable Fritz Gotti MD Unavailable Armani Padron MD Unavailable [phone] Reason for Visit * Reason Onset Date Comments Medication Problem 05/03/2025 Encounter Details Date Type Department Care Team (Late st Contact Info) Description 05/03/2025 Telephone [facility] [address] [place] [address] Peña Andrew, DO [address] [place] [address] [email or web address] Medication Problem Social History Tobacco Use Types Packs/Day Years Used Date Smoking Tobacco: Never Smokeless Tobacco: Never Alcohol Use Standard Drinks/Week Comments Not Currently [...] PM EDT documented as of this encounter Progress Notes * Gabby Sarabia MA - 05/06/2025 9:15 AM EST Submitted order via parachute. * Maddie Watt - 05/03/2025 4:27 PM EDT Patient's spouse, Umm, spoke with Edward regarding the patient's sensors. Edward stated they are waiting for information from our office to be faxed. documented in this encounter Plan of Treatment Upcoming Encounters Date Type Department Care Team (Late st Contact Info) Description 07/10/2025 1:00 PM EST Office Visit [facility] Internal Medicine [address] [place] [address] Chris Morales MD [address] [place] [address] 07/17/2025 3:00 PM EST Office Visit [facility] [address] [place] [address] Peña Andrew DO [address] [place] [address] 09/11/2025 12:30 PM EDT Office Visit [facility] [address] [address] Peña Andres MD [address] [place] [address] [email or web address] 09/11/2025 1:00 PM EDT Appointment [address] [address] Peña Andres MD [address] [place] [phone] [email or web address] 09/11/2025 1:30 PM EDT Office Visit [address] [address] Pete Small MD, PhD, MPH [address] [place] [phone] [email or web address] 12/30/2025 2:00 PM EDT Office Visit [facility] Internal Medicine [address] [place], [place] [phone] Yury Vasquez PA-C [address] [place], [place] [phone] [email or web address] documented as of this encounter Visit Diagnoses Not on filedocumented in this encounter Additional Health Concerns Assessment Noted Time PHQ-2 Depression Total Score: 0 12/26/19 11:51 AM EDT documented as of this encounter Care Teams Narcotics Detective Relationship Specialty Start Date End Date Chris Morales MD [address] [place] [address] [email or web address] PCP - General Internal Medicine 05/24/17 Chris Morales MD [address] [place] [address] [email or web address] Insurance Assigned Provider 10/08/23 Marce Cuellar NP [address] [place] [address] Endocrinology 08/06/19 Rizwan Diaz MD [address] [place] [address] Cardiology 10/03/19 Shantanu Cole MD [address] [place] [address] Dr [address] [place] [address] Ophthalmology 11/27/19 Alfonso Peters MD [address] [place] [address] Dr [address] [place] [address] Internal Medicine 05/20/20 Fritz Gotti MD [address] [place] [address] Internal Medicine 05/20/20 Armani Padron MD [address] [place] [address] Dr [address] [place] [phone] Gastroenterology 09/04/20 documented as of this encounter Additional Source Comments The information contained in this document represents components of the legal health record. It is not the complete legal health record.[facility]
--- OUTSIDE RECORDS SUMMARY | 2025-05-06 14:06 | XMS_ITS | Encounter Summary ---
Author Organization [facility] Address [address] [place] [address] [place] [address] Phone Care Team Providers Care Acquisitions Logistics Analyst Name Role Phone Chris Morales MD Unavailable [phone] Sammie Whitman MD Unavailable [phone] Chris Morales MD Unavailable [phone] Claudia Lozano RETAIL COMMISSION SALES ASSOCIATE Unavailable [phone] Chris Morales MD Primary Care Provider [phone] Marce Cuellar RETAIL COMMISSION SALES ASSOCIATE Unavailable Rizwan Diaz MD Unavailable [phone] Shantanu Cole MD Unavailable Alfonso Peters MD Unavailable [phone] Fritz Gotti MD Unavailable [phone] Armani Padron MD Unavailable [phone] Juanjo Hart OT Unavailable Encounter Details Date Type Department Care Team (Latest Contact Info) Description 10/20/2017 Transcribe Orders [address] [place] [address] Chris Morales MD [address] [place], [place] [phone] Paroxysmal atrial fibrillation (Primary Dx); Essential hypertension, benign; Screening for prostate cancer; Hyperglycemia Social History Tobacco Use Types Packs/Day Years [...] 07/10/2025 1:00 PM EST Office Visit [facility] [place] Internal Medicine [address] [place] [address] Chris Morales MD 40 [place] [address] [email or web address] 07/17/2025 3:00 PM EST Office Visit [facility] 22 [place] [address] Peña Andrew DO 22 [place] [address] 09/11/2025 12:30 PM EDT Office Visit [address] [address] Peña Andres MD [address] [place] [address] [email or web address] 09/11/2025 1:00 PM EDT Appointment [address] [address] Peña Andres MD [address] [place] [address] [email or web address] 09/11/2025 1:30 PM EDT Office Visit [facility] [address] 1[address] [place] [address] Pete Small MD, PhD, MPH [address] [place] [address] [email or web address] 12/30/2025 2:00 PM EDT Office Visit [facility] Internal Medicine [address] [place] [address] Yury Vasquez PA-C [address] [place] [address] [email or web address] documented as of this encounter Results * PSA (screening) (10/20/2017 10:11 AM EDT) PSA 2.03 0 - 4.00 ng/mL [facility] Blood 10/20/2017 10:1 1 AM EDT 10/20/2017 10:13 AM EDT us Chris Morales MD LAB BLOOD BKR ORDERABLES Brittny l Result Performing Organization Address City/[facility]/ZIP Co de Phone Number [address] [address] * (ABNORMAL) Microalbumin/creatinine ratio, random urine (10/20/2017 10:11 AM EDT) URINE MICROALBUMIN 3.3(H) 0 - 2.3 mg/dL [facility] URINE CREATININE 101 mg/dL [facility] MICROALB/CRE RATIO 32.7(H) 0 - 20 mg/g Cre [facility] Urine (Urine) 10/20/2017 10: 11 AM EDT 10/20/2017 10:13 AM EDT us Chris Morales MD LAB URINE ORDERABLES Final Re sult [address] [place] [address] * (ABNORMAL) Hemoglobin A1c (10/20/2017 10:11 AM EDT) HEMOGLOBIN A1C 8.8(H) 4.3 - 5.8 % [facility] Blood 10/20/2017 10:1 1 AM EDT 10/20/2017 10:13 AM EDT us Chris Morales MD LAB BLOOD BKR ORDERABLES Brittny mike Result [address] [address] * (ABNORMAL) Comprehensive metabolic panel (10/20/2017 10:11 AM EDT) SODIUM 143 133 - 146 mmol/L [facility] POTASSIUM 4.2 3.3 - 5.1 mmol/L [facility] CHLORIDE 102 96 - 108 mmol/L [facility] CO2 29 21 - 35 mmol/L [facility] BUN 22(H) 6 - 19 mg/dL [facility] CREATININE 1.00 0.5 - 1.5 mg/dL [facility] GLUCOSE 199(H) 70 - 99 mg/dL [facility] ALBUMIN 4.4 3.9 - 4.8 g/dL [facility] TOTAL PROTEIN 7.4 6.5 - 8.0 g/dL [facility] CALCIUM 9.6 8.4 - 10.3 mg/dL [facility] ALKALINE PHOSPHATASE 72 39 - 117 U/L [facility] TOTAL BILIRUBIN 1.0 0.0 - 1.2 mg/dL [facility] AST 19 0 - 37 U/L [facility] ALT 9 0 - 40 U/L [facility] GLOBULIN 3.0 1 - 4.8 g/dL [facility] EGFR 75 >59 mL/min/1.7 3m2 [facility] Comment:If patient is black, multiply result by 1.159. The eGFR calculation has changed from the MDRD equation to the CKD-EPI equation as of September 06, 2017. ANION GAP 16 10 - 20 mmol/L [facility] Blood 10/20/2017 10:1 1 AM EDT 10/20/2017 10:13 AM EDT Chris Morales MD LAB BLOOD BKR ORDERABLES Brittny l Result Performing Organization Address [facility] Co de Phone Number [address] [address] * CBC (10/20/2017 10:11 AM EDT) WBC 9.10 3.40 - 11.20 K/uL [facility] RBC 4.86 4.50 - 5.50 M/uL [facility] HGB 15.0 13.0 - 17.0 g/dL [facility] HCT 45.1 40.0 - 51.0 % [facility] PLT 204 130 - 400 K/uL [facility] MCV 92.8 79.0 - 98.0 fL [facility] MCH 30.9 27.0 - 34.8 pg [facility] MCHC 33.3 31.5 - 36.0 g/dL [facility] RDW 12.6 10.8 - 14.6 % [facility] MPV 9.4 9.4 - 12.4 fl [facility] NRBC 0.00 /100 WBCs [facility] ABSOLUTE NRBC 0.00 K/uL [facility] Blood 10/20/2017 10:1 1 AM EDT 10/20/2017 10:13 AM EDT Chris Morales MD LAB BLOOD BKR ORDERABLES Brittny l Result Performing Organization Address City/[facility]/ZIP Co de Phone Number [address] [address] documented in this encounter Visit Diagnoses Diagnosis Paroxysmal atrial fibrillation- Primary Atrial fibrillation Essential hypertension, benign Screening for prostate cancer Special screening for malignant neoplasm of prostate Hyperglycemia Other abnormal glucose documented in this encounter Additional Health Concerns Infection Onset Date Last Indicated Resolved Time CoV-Presumed 10/19/2021 10/19/2021 11/09/2021 1:23 AM EDT Assessment Noted Time PHQ-2 Depression Total Score: 0 07/11/19 18 1:34 PM EST documented as of this encounter Care Teams Acquisitions Logistics Analyst Relationship Specialty Start Date End Date Chris Morales MD [address] [place] [address] PCP - General Internal Medicine 05/24/17 Chris Morales MD [address] [place] [address] Insurance Assigned Provider 10/08/23 Sammie Whitman MD [address] [place] [address] Historical LMR Provider 04/23/17 08/05/19 Chris Morales MD [address] [place] [address] Historical LMR Provider 04/23/17 08/05/19 Claudia Lozano, RETAIL COMMISSION SALES ASSOCIATE [address] [place] [address] Historical LMR Provider 04/23/17 08/05/19 Marce Cuellar, RETAIL COMMISSION SALES ASSOCIATE [address] [place] [address] Endocrinology 08/06/19 Rizwan Diaz MD [address] [place] [address] Cardiology 10/03/19 Shantanu Cole MD [address] [place] [address] [place] [address] Ophthalmology 11/27/19 Alfonso Peters MD [address] [place] [address] SREE Madden [facility] [address] Internal Medicine 05/20/20 Fritz Gotti MD [address] [place] [address] Internal Medicine 05/20/20 Armani Padron MD [address] [place] [address] [address] [place] [phone] Gastroenterology 09/04/20 Juanjo Hart OT [address] [place] [address] [email or web address] Trans[facility] Director Strategic Account ManagementSupply Chain Assistant Therapy 10/27/20 11/09/20 documented as of this encounter Additional Source Comments The information contained in this document represents components of the legal health record. It is not the complete legal health record.[facility]
--- OUTSIDE RECORDS SUMMARY | 2025-05-06 14:06 | XMS_ITS | Clinical Summary ---
Author Organization [facility] Address [address] [place] [address] Phone Care Team Providers Care Embroidery Worker Name Role Phone Chris Morales MD Primary Care Provider [phone] Social History Tobacco Use Types Packs/Day Years Used Date Smoking Tobacco: Never Assessed Sex and Gender Information Value Date Recorded Sex Assigned at Not on file Legal Sex Male 6:39 PM EST Gender Identity Not on file Sexual Orientation Not on file Plan of Treatment Upcoming Encounters Date Type Department Care Team ([facility] Contact Info) Description 05/21/2025 2:00 PM EST Office Visit Orthopedic Surgery [address] [place] [phone] Ken Awad, DPM [address] [place] [address] Health Maintenance Due Date Last Done Comments Diabetes: Annual GFR (Glomerular Filtration Rate) 1946 Diabetes: Annual Foot Exam 02/22/1956 Diabetes: Annual Retina Eye Exam 02/22/1956 Zoster Vaccines (1 of 2) 02/22/1996 RSV Immunization Adult Patients (1 - 1-dose 75+ series) 2021 Falls Risk Assessment 06/05/2022 Medicare Annual Wellness Visit 06/05/2022 Social Influencers of Health Screening 06/05/2022 Depression Screening 07/04/2024 Diabetes: Blood Sugar Control Test (HGBA1C) 12/28/2024 Hypertension/CHF/CAD Annual BMP Blood Test 12/28/2024 COVID-19 Vaccine ( season) 2025 09/22/2020, 08/25/2020 Influenza Vaccine (#1) 2025 , 04/11/2023, 05/10/2022, Additional history exists Diabetes: Annual Urine Albumin-Creatinine Ratio (uACR) 11/12/2025 11/12/2024 DTaP,Tdap,and Td Vaccines (3 - Td or Tdap) 09/19/2026 09/19/2016, 06/03/2005 Cholesterol Screening (Lipid Panel) 11/12/2029 11/12/2024 Pneumococcal Vaccine: 50+ Years Completed 10/17/2015, 05/10/2014, 03/04/2007 Hepatitis C Screening Completed 08/02/2019 HIB Vaccines Aged Out No longer eligi ble based on patient's age to complete this topic HPV Vaccines Aged Out No longer eligi ble based on patient's age to complete this topic Hepatitis A Vaccines Aged Out No long er eligible based on patient's age to complete this topic Hepatitis B Vaccines Aged Out No long er eligible based on patient's age to complete this topic IPV Vaccines Aged Out No longer eligi ble based on patient's age to complete this topic MMR Vaccines Aged Out No longer eligi ble based on patient's age to complete this topic Meningococcal ACWY Vaccine Aged Out N o longer eligible based on patient's age to complete this topic Meningococcal B Vaccine Aged Out No l onger eligible based on patient's age to complete this topic RSV Immunization Patients Under 20 months Aged Out No longer eligible based on patient's age to complete this topic Varicella Vaccines Aged Out No longer eligible based on patient's age to complete this topic Insurance [facility] Care Teams Embroidery Worker Relationship Specialty Start Date End Date Chris Morales MD [address] [place] [address] PCP - General 12/09/12
--- OUTSIDE RECORDS SUMMARY | 2025-05-06 14:06 | XMS_ITS | Encounter Summary ---
Author Organization [facility] Address [address] [facility] [address] [place] [address] Phone Care Team Providers Care Film Inspector Name Role Phone Chris Morales MD Unavailable [phone] Chris Morales MD Primary Care Provider [phone] Marce Cuellar NP Unavailable Rizwan Diaz MD Unavailable [phone] Shantanu Cole MD Unavailable Alfonso Peters MD Unavailable Fritz Gotti MD Unavailable Armani Padron MD Unavailable [phone] Juanjo Hart OT Unavailable Encounter Details Date Type Department Care Team (Late st Contact Info) Description 11/03/[address] [place] [address] Collin Erickson MD, PhD [address] [place] [address], [address] [place] [address] [email or web address] Social History Tobacco Use Types Packs/Day Years [...] Description 07/10/2025 1:00 PM EST Office Visit [facility] Internal Medicine [address] [place] [address] Chris Morales MD 40 [place] [address] [email or web address] 07/17/2025 3:00 PM EST Office Visit [facility] 22 [place] [address] Peña Andrew DO 22 [place] [address] 09/11/2025 12:30 PM EDT Office Visit [facility] [address] [address] Peña Andres MD [address] [place] [address] [email or web address] 09/11/2025 1:00 PM EDT Appointment [facility] [address] [address] Peña Andres MD [address] [place] [address] [email or web address] 09/11/2025 1:30 PM EDT Office Visit [facility] [address] [address] Pete Small MD, PhD, MPH [address] [place] [address] [email or web address] .[email or web address] 12/30/2025 2:00 PM EDT Office Visit [facility] [place] Internal Medicine [address] [place] [address] Yury Vasquez PA-C 40 [place] [address] [email or web address] documented as of this encounter Visit Diagnoses Not on filedocumented in this encounter Additional Health Concerns Infection Onset Date Last Indicated Resolved Time CoV-Presumed 10/19/2021 10/19/2021 11/09/2021 1:23 AM EDT Assessment Noted Time PHQ-2 Depression Total Score: 0 08/06/19 1:20 PM EST documented as of this encounter Care Teams Film Inspector Relationship Specialty Start Date End Date Chris Morales MD [address] [place] [address] PCP - General Internal Medicine 05/24/17 Chris Morales MD [address] [place] [address] Insurance Assigned Provider 10/08/23 Marce Cuellar NP [address] [place] [address] Endocrinology 08/06/19 Rizwan Diaz MD [address] [place] [address] Cardiology 10/03/19 Shantanu Cole MD [address] [place] [address] [address] [place] [phone] Ophthalmology 11/27/19 Alfonso Peters MD [address] [place] [address] Dr [address] [address] [place] [address] Internal Medicine 05/20/20 Fritz Gotti MD [address] [place] [address] Internal Medicine 05/20/20 Armani Padron MD [address] [place] [address] Dr Bennett [address] [place] [phone] Gastroenterology 09/04/20 Juanjo Hart OT [address] [place] [address] [email or web address] Transitions Transactional AttorneyTube Making Machine Operator Therapy 10/27/20 11/09/20 documented as of this encounter Additional Source Comments The information contained in this document represents components of the legal health record. It is not the complete legal health record.[facility]
--- OUTSIDE RECORDS SUMMARY | 2025-05-06 14:06 | XMS_ITS | Encounter Summary ---
Author Organization [facility] Address [address] [facility] [address] [place] [address] Phone Care Team Providers Care Post Partum Nurse Name Role Phone Chris Morales MD Unavailable [phone] Chris Morales MD Primary Care Provider [phone] Marce Cuellar NP Unavailable [phone] Rizwan Diaz MD Unavailable [phone] Shantanu Cole MD Unavailable Alfonso Peters MD Unavailable [phone] Fritz Gotti MD Unavailable Armani Padron MD Unavailable Reason for Visit * Reason Comments Medication Refill Encounter Details Date Type Department Care Team (Late st Contact Info) Description 08/31/2021 Refill [facility] [address] [address] Collin Erickson MD, PhD [address] [place] [address], [address] [place] [address] [email or web address] Medication Refill Social History Tobacco Use Types Packs/Day Years [...] Description 07/10/2025 1:00 PM EST Office Visit [facility] Internal Medicine 40 [place] [address] Chris Morales MD [address] [place] [address] 07/17/2025 3:00 PM EST Office Visit [facility] 22 [place] [address] Peña Andrew DO [address] [place] [address] 09/11/2025 12:30 PM EDT Office Visit [facility] [address] [address] Peña Andres MD [address] [place] [address] [email or web address] 09/11/2025 1:00 PM EDT Appointment [facility] Glaucoma [address] [address] Peña Andres MD [address] [place] [address] [email or web address] 09/11/2025 1:30 PM EDT Office Visit [facility] Glaucoma [address] [address] Pete Small MD, PhD, MPH [address] [place] [address] [email or web address] 12/30/2025 2:00 PM EDT Office Visit [facility] [place] Internal Medicine [address] [place], [place] [phone] Yury Vasquez PA-C [address] [place] [address] documented as of this encounter Visit Diagnoses Not on filedocumented in this encounter Additional Health Concerns Infection Onset Date Last Indicated Resolved Time CoV-Presumed 10/19/2021 10/19/2021 11/09/2021 1:23 AM EDT Assessment Noted Time PHQ-2 Depression Total Score: 0 08/06/19 1:20 PM EST documented as of this encounter Care Teams Post Partum Nurse Relationship Specialty Start Date End Date Chris Morales MD [address] [place] [address] PCP - General Internal Medicine 05/24/17 Chris Morales MD [address] [place] [address] Insurance Assigned Provider 10/08/23 Marce Cuellar, SHANTHI [address] [place] [address] Endocrinology 08/06/19 Rizwan Diaz MD [address] [place] [address] Cardiology 10/03/19 Shantanu Cole MD [address] [place] [address] [place] [address] Ophthalmology 11/27/19 Alfonso Peters MD [address] [place] [address] Dr [address] [place] [address] Internal Medicine 05/20/20 Fritz Gotti MD [address] [place] [address] Internal Medicine 05/20/20 Armani Padron MD [address] [place] [address] Dr Bennett [address] [place] [phone] Gastroenterology 09/04/20 documented as of this encounter Additional Source Comments The information contained in this document represents components of the legal health record. It is not the complete legal health record.[facility]
--- OUTSIDE RECORDS SUMMARY | 2025-05-06 14:06 | XMS_ITS | Encounter Summary ---
Author Organization [facility] Address [address] [facility] [address] [place] [address] Phone Care Team Providers Care Mop Machine Operator Name Role Phone Chris Morales MD Unavailable [phone] Chris Morales MD Primary Care Provider [phone] Marce Cuellar NP Unavailable Rizwan Diaz MD Unavailable [phone] Shantanu Cole MD Unavailable Alfonso Peters MD Unavailable [phone] Fritz Gotti MD Unavailable Armani Padron MD Unavailable Juanjo Hart OT Unavailable Encounter Details Date Type Department Care Team (Late st Contact Info) Description 11/03/2020 Procedure Pass OR Admitting Dept - Virtual Department [address] [place] [address] Social History Tobacco Use Types Packs/Day Years [...] Description 07/10/2025 1:00 PM EST Office Visit [facility] Internal Medicine [address] [place] [address] Chris Morales MD [address] [place], [place] [phone] [email or web address] 07/17/2025 3:00 PM EST Office Visit [facility] 22 [place] [address] Peña Andrew DO 22 [place] [address] 09/11/2025 12:30 PM EDT Office Visit [facility] [address] [address] Peña Andres MD [address] [place] [address] [email or web address] 09/11/2025 1:00 PM EDT Appointment [facility] [place] [address] [address] Peña Andres MD [address] [place] [address] [email or web address] 09/11/2025 1:30 PM EDT Office Visit [facility] [place] [address] [address] Pete Small MD, PhD, MPH [address] [place] [address] [email or web address] 12/30/2025 2:00 PM EDT Office Visit [facility] Internal Medicine [address] [place], [place] [phone] Yury Vasquez PA-C [address] [place] [address] [email or web address] documented as of this encounter Visit Diagnoses Not on filedocumented in this encounter Additional Health Concerns Infection Onset Date Last Indicated Resolved Time CoV-Presumed 10/19/2021 10/19/2021 11/09/2021 1:23 AM EDT Assessment Noted Time PHQ-2 Depression Total Score: 0 08/06/19 1:20 PM EST documented as of this encounter Care Teams Mop Machine Operator Relationship Specialty Start Date End Date Chris Morales MD [address] [place] [address] [email or web address] PCP - General Internal Medicine 05/24/17 Chris Morales MD [address] [place] [address] [email or web address] Insurance Assigned Provider 10/08/23 Marce Cuellar, SHANTHI [address] [place] [address] Endocrinology 08/06/19 Rizwan Diaz MD [address] [place] [address] Cardiology 10/03/19 Shantanu Cole MD [address] [place] [address] [place] [address] Ophthalmology 11/27/19 Alfonso Peters MD [address] [place] [address] [place] [address] Internal Medicine 05/20/20 Fritz Gotti MD [address] [place] [address] Internal Medicine 05/20/20 Armani Padron MD [address] [place] [phone] Gastroenterology 09/04/20 Juanjo Hart OT [address] [place] [address] [email or web address] Transitions Vibrating Screed OperatorSteel Engraver Therapy 10/27/20 11/09/20 documented as of this encounter Additional Source Comments The information contained in this document represents components of the legal health record. It is not the complete legal health record.[facility]
--- OUTSIDE RECORDS SUMMARY | 2025-05-06 14:06 | XMS_ITS | Encounter Summary ---
Author Organization [facility] Address [address] [facility] [address] [place] [address] Phone Care Team Providers Care Hopper Attendant Name Role Phone Chris Morales MD Unavailable [phone] Chris Morales MD Primary Care Provider [phone] Marce Cuellar NP Unavailable [phone] Rizwan Diaz MD Unavailable [phone] Shantanu Cole MD Unavailable Alfonso Peters MD Unavailable Fritz Gotti MD Unavailable Armani Padron MD Unavailable Juanjo Hart OT Unavailable Encounter Details Date Type Department Care Team (Late st Contact Info) Description 07/28/2020 Telephone [facility] [address] [address] Lianne [email or web address] Social History Tobacco Use Types Packs/Day Years [...] Description 07/10/2025 1:00 PM EST Office Visit [facility] Internal Medicine 40 [place] [address] Chris Morales MD 40 [place] [address] [email or web address] 07/17/2025 3:00 PM EST Office Visit [facility] [address] [place] [address] Peña Andrew DO 22 [place] [address] 09/11/2025 12:30 PM EDT Office Visit [facility] [address] [address] Peña Andres MD [address] [place] [address] [email or web address] 09/11/2025 1:00 PM EDT Appointment [facility] [address] [address] Peña Andres MD [address] [place] [address] [email or web address] 09/11/2025 1:30 PM EDT Office Visit [facility] [address] [address] Pete Small MD, PhD, MPH [address] [place] [address] Corinna@[email or web address] 12/30/2025 2:00 PM EDT Office Visit [facility] Internal Medicine 40 [place] [address] Yury Vasquez PA-C 40 [place] [address] [email or web address] documented as of this encounter Visit Diagnoses Not on filedocumented in this encounter Additional Health Concerns Infection Onset Date Last Indicated Resolved Time CoV-Presumed 10/19/2021 10/19/2021 11/09/2021 1:23 AM EDT Assessment Noted Time PHQ-2 Depression Total Score: 0 08/06/19 1:20 PM EST documented as of this encounter Care Teams Hopper Attendant Relationship Specialty Start Date End Date Chris Morales MD [address] [place] [address] [email or web address] PCP - General Internal Medicine 05/24/17 Chris Morales MD [address] [place] [address] [email or web address] Insurance Assigned Provider 10/08/23 Marce Cuellar, BIODIESEL PROCESSING TECHNICIAN [address] [place] [address] Endocrinology 08/06/19 Rizwan Diaz MD [address] [place] [address] Cardiology 10/03/19 Shantanu Cole MD [address] [place] [address] [place] [address] Ophthalmology 11/27/19 Alfonso Peters MD [address] [place] [address] [place] [address] Internal Medicine 05/20/20 Fritz Gotti MD [address] [place] [address] Internal Medicine 05/20/20 Armani Padron MD [address] [place] [phone] Gastroenterology 09/04/20 Juanjo Hart OT [address] [place] [address] [email or web address] Transitions Drop Wire StringerEmission Specialist Therapy 10/27/20 11/09/20 documented as of this encounter Additional Source Comments The information contained in this document represents components of the legal health record. It is not the complete legal health record.[facility]
--- OUTSIDE RECORDS SUMMARY | 2025-05-06 14:07 | XMS_ITS | Encounter Summary ---
Author Organization [facility] Address [address] [facility] [address] [place] [address] Phone Care Team Providers Care Brand Manager Name Role Phone Chris Morales MD Unavailable [phone] Chris Morales MD Primary Care Provider [phone] Marce Cuellar NP Unavailable Rizwan Diaz MD Unavailable [phone] Shantanu Cole MD Unavailable Alfonso Peters MD Unavailable Fritz Gotti MD Unavailable Armani Padron MD Unavailable Juanjo Hart OT Unavailable Encounter Details Date Type Department Care Team (Late st Contact Info) Description 10/21/2020 Procedure Pass [facility]PT [address] [place] [address] Social History Tobacco Use Types Packs/Day Years [...] PM EDT documented as of this encounter Functional Status * Calculated C-SSRS Risk Score (Lifetime/Recent) Answer Date of Assessment Author No Risk Indicated 10/24/2020 7:33 PM EDT PostSherri uribe RN * [place] Suicide Severity Rating Scale (Screener/Recent Self-Report) Question Answer Date of Assessment Author 1. Wish to be (Past 1 Month) No 10/24/2020 7:33 PM EDT Postrony, Sherri zee RN 2. Non-Specific Active Suicidal Thoughts (Past 1 Month) No 10/24/2020 7:33 PM EDT Postrony, Sherri zee RN 6. Suicidal Behavior (Lifetime) No 10/24/2020 7:33 PM EDT PostSherri uribe RN documented as of this encounter Plan of Treatment Upcoming Encounters Date Type Department Care Team (Late st Contact Info) Description 07/10/2025 1:00 PM EST Office Visit [facility] Internal Medicine 40 [place] [address] Chris Morales MD [address] [place] [address] 07/17/2025 3:00 PM EST Office Visit [facility] [address] [place] [address] Peña Andrew DO [address] [place] [address] 09/11/2025 12:30 PM EDT Office Visit [address] [address] Peña Andres MD [address] [place] [address] [email or web address] 09/11/2025 1:00 PM EDT Appointment [address] [address] Peña Andres MD [address] [place] [address] [place] [address] [email or web address] 09/11/2025 1:30 PM EDT Office Visit [facility] [address] [place] [address] Pete Small MD, PhD, MPH [address] [place] [address] Corinna@[facility] 12/30/2025 2:00 PM EDT Office Visit [facility] Internal Medicine 40 [place], [place] [phone] Yury Vasquez PA-C [address] [place] [address] [email or web address] documented as of this encounter Visit Diagnoses Not on filedocumented in this encounter Additional Health Concerns Infection Onset Date Last Indicated Resolved Time CoV-Presumed 10/19/2021 10/19/2021 11/09/2021 1:23 AM EDT Assessment Noted Time PHQ-2 Depression Total Score: 0 08/06/19 20 1:20 PM EST documented as of this encounter Care Teams Brand Manager Relationship Specialty Start Date End Date Chris Morales MD [address] [place] [address] [email or web address] PCP - General Internal Medicine 05/24/17 Chris Morales MD [address] [place] [address] [email or web address] Insurance Assigned Provider 10/08/23 Marce Cuellar NP [address] [place] [address] Endocrinology 08/06/19 Rizwan Diaz MD [address] [place] [address] Cardiology 10/03/19 Shantanu Cole MD [address] [place] [address] [address] [place] [address] Ophthalmology 11/27/19 Alfonso Peters MD [address] [place] [address] Dr [address] [place] [address] Internal Medicine 05/20/20 Fritz Gotti MD [address] [place] [address] Internal Medicine 05/20/20 Armani Padron MD [address] [place] [address] Dr Bennett [address] [place] [phone] Gastroenterology 09/04/20 Juanjo Hart OT [address] [place] [address] [email or web address] Transitions Fashion DirectorLaw Office Receptionist Therapy 10/27/20 11/09/20 documented as of this encounter Additional Source Comments The information contained in this document represents components of the legal health record. It is not the complete legal health record.[facility]
--- OUTSIDE RECORDS SUMMARY | 2025-05-06 14:07 | XMS_ITS | Encounter Summary ---
Author Organization [facility] Address [address] [place] [address] [place] [address] Phone Care Team Providers Care Cell Tuber Machine Name Role Phone Chris Morales MD Unavailable [phone] Chris Morales MD Primary Care Provider [phone] Marce Cuellar NP Unavailable [phone] Rizwan Diaz MD Unavailable [phone] Shantanu Cole MD Unavailable Alfonso Peters MD Unavailable [phone] Fritz Gotti MD Unavailable Armani Padron MD Unavailable Encounter Details Date Type Department Care Team (Late Contact Info) Description 11/22/2020 Procedure Pass [facility] Cardiovascular And Interventional Radiology [address] [place] [address] Social History Tobacco Use Types Packs/Day Years [...] Encounters Date Type Department Care Team (Late Contact Info) Description 07/10/2025 1:00 PM EST Office Visit [facility] Internal Medicine 40 [place] [address] Chris Morales MD 40 [place] [address] [email or web address] 07/17/2025 3:00 PM EST Office Visit [facility] 22 [place] [address] Peña Andrew DO 22 [place] [address] 09/11/2025 12:30 PM EDT Office Visit [facility] [address] [address] Peña Andres MD [address] [place] [address] [email or web address] 09/11/2025 1:00 PM EDT Appointment [facility] Glaucoma [address] [address] Peña Andres MD [address] [place] [address] [email or web address] 09/11/2025 1:30 PM EDT Office Visit [facility] Glaucoma [address] [address] Pete Small MD, PhD, MPH [address] [place] [address] Corinna@[facility] 12/30/2025 2:00 PM EDT Office Visit [facility] Internal Medicine 40 [place], [place] [phone] Yury Vasquez PA-C 40 [place] [address] [email or web address] documented as of this encounter Visit Diagnoses Not on filedocumented in this encounter Additional Health Concerns Infection Onset Date Last Indicated Resolved Time CoV-Presumed 10/19/2021 10/19/2021 11/09/2021 1:23 AM EDT Assessment Noted Time PHQ-2 Depression Total Score: 0 08/06/19 1:20 PM EST documented as of this encounter Care Teams Cell Tuber Machine Relationship Specialty Start Date End Date Chris Morales MD 40 [place] [address] [email or web address] PCP - General Internal Medicine 05/24/17 Chris Morales MD 40 [place] [address] [email or web address] Insurance Assigned Provider 10/08/23 Marce Cuellar, SHANTHI 40 [place] [address] Endocrinology 08/06/19 Rizwan Diaz MD [address] [place] [address] Cardiology 10/03/19 Shantanu Cole MD [address] [place] [address] [place] [address] Ophthalmology 11/27/19 Alfonso Peters MD [address] [place] [address] [place] [address] Internal Medicine 05/20/20 Fritz Gotti MD [address] [place] [address] Internal Medicine 05/20/20 Armani Padron MD [address] [place] [phone] Gastroenterology 09/04/20 documented as of this encounter Additional Source Comments The information contained in this document represents components of the legal health record. It is not the complete legal health record.[facility]
--- OUTSIDE RECORDS SUMMARY | 2025-05-06 14:07 | XMS_ITS | Encounter Summary ---
Author Organization [facility] Address [address] [facility] [address] [place] [address] Phone Care Team Providers Care Boring Machine Operator Helper Name Role Phone Chris Morales MD Unavailable [phone] Chris Morales MD Primary Care Provider [phone] Marce Cuellar NP Unavailable Rizwan Diaz MD Unavailable [phone] Shantanu Cole MD Unavailable Alfonso Peters MD Unavailable Fritz Gotti MD Unavailable Armani Padron MD Unavailable Juanjo Hart OT Unavailable Encounter Details Date Type Department Care Team (Late st Contact Info) Description 10/29/2020 Procedure Pass [place] Admitting Dept - Virtual Department [address] [place] [address] Social History Tobacco Use Types Packs/Day Years [...] PM EST Office Visit [facility] Internal Medicine 40 [place] [address] Chris Morales MD 40 [place], [place] [phone] [email or web address] 07/17/2025 3:00 PM EST Office Visit [facility] 22 [place] [address] Peña Andrew DO 22 [place] [address] 09/11/2025 12:30 PM EDT Office Visit [facility] [address] [address] Peña Andres MD [address] [place] [address] [email or web address] 09/11/2025 1:00 PM EDT Appointment [facility] Glaucoma [address] [address] Peña Andres MD [address] [place] [address] Elida@[email or web address] 09/11/2025 1:30 PM EDT Office Visit [facility] Glaucoma [address] [address] Pete Small MD, PhD, MPH [address] [place] [address] Corinna@[facility] 12/30/2025 2:00 PM EDT Office Visit [facility] Internal Medicine 40 [place], [place] [phone] Yury Vasquez PA-C 40 [place] [address] [email or web address] documented as of this encounter Visit Diagnoses Not on filedocumented in this encounter Additional Health Concerns Infection Onset Date Last Indicated Resolved Time CoV-Presumed 10/19/2021 10/19/2021 11/09/2021 1:23 AM EDT Assessment Noted Time PHQ-2 Depression Total Score: 0 08/06/19 1:20 PM EST documented as of this encounter Care Teams Boring Machine Operator Helper Relationship Specialty Start Date End Date Chris Morales MD 40 [place] [address] [email or web address] PCP - General Internal Medicine 05/24/17 Chris Morales MD 40 [place] [address] [email or web address] Insurance Assigned Provider 10/08/23 Marce Cuellar, SHANTHI [address] [place] [address] Endocrinology 08/06/19 Rizwan Diaz MD [address] [place] [address] Cardiology 10/03/19 Shantanu Cole MD [address] [place] [address] [place] [address] Ophthalmology 11/27/19 Alfonso Peters MD [address] [place] [address] [place] [address] Internal Medicine 05/20/20 Fritz Gotti MD [address] [place] [address] Internal Medicine 05/20/20 Armani Padron MD [address] [place] [phone] Gastroenterology 09/04/20 Juanjo Hart OT [address] [place] [address] [email or web address] Transitions Plant Science ProfessorAdventure Guide Therapy 10/27/20 11/09/20 documented as of this encounter Additional Source Comments The information contained in this document represents components of the legal health record. It is not the complete legal health record.[facility]
--- OUTSIDE RECORDS SUMMARY | 2025-05-06 14:07 | XMS_ITS | Encounter Summary ---
Author Organization [facility] Address [address] [place] [address] [place] [address] Phone Care Team Providers Care Orthopaedic Technologist Name Role Phone Chris Morales MD Unavailable [phone] Chris Morales MD Primary Care Provider [phone] Marce Cuellar NP Unavailable Rizwan Diaz MD Unavailable [phone] Shantanu Cole MD Unavailable Alfonso Peters MD Unavailable Fritz Gotti MD Unavailable [phone] Armani Padron MD Unavailable Juanjo Hart OT Unavailable [phone] Encounter Details Date Type Department Care Team (Late st Contact Info) Description 10/29/2020 Procedure Pass [facility] Cardiovascular And Interventional Radiology 30 [place] [address] Social History Tobacco Use Types Packs/Day Years [...] 07/10/2025 1:00 PM EST Office Visit [facility] Internal Medicine 40 [place] [address] Chris Morales MD 40 [place] [address] [email or web address] 07/17/2025 3:00 PM EST Office Visit [facility] 22 [place] [address] Peña Andrew DO 22 [place] [address] [email or web address] 09/11/2025 12:30 PM EDT Office Visit [facility] Retina [address] [address] Peña Andres MD [address] [place] [address] [email or web address] 09/11/2025 1:00 PM EDT Appointment [facility] Glaucoma [address] [address] Peña Andres MD [address] [place] [address] [email or web address] 09/11/2025 1:30 PM EDT Office Visit [address] [address] Pete Small MD, PhD, MPH [address] [place] [address] Corinna@[facility] 12/30/2025 2:00 PM EDT Office Visit [facility] Internal Medicine [address] [place], [place] [phone] Yury Vasquez PA-C 40 [place] [address] [email or web address] documented as of this encounter Visit Diagnoses Not on filedocumented in this encounter Additional Health Concerns Infection Onset Date Last Indicated Resolved Time CoV-Presumed 10/19/2021 10/19/2021 11/09/2021 1:23 AM EDT Assessment Noted Time PHQ-2 Depression Total Score: 0 08/06/19 1:20 PM EST documented as of this encounter Care Teams Orthopaedic Technologist Relationship Specialty Start Date End Date Chris Morales MD 40 [place] [address] [email or web address] PCP - General Internal Medicine 05/24/17 Chris Morales MD [address] [place] [address] [email or web address] Insurance Assigned Provider 10/08/23 Marce Cuellar NP [address] [place] [address] Endocrinology 08/06/19 Rizwan Diaz MD [address] [place] [address] Cardiology 10/03/19 Shantanu Cole MD [address] [place] [address] [place] [address] Ophthalmology 11/27/19 Alfonso Peters MD [address] [place] [address] [place] [address] Internal Medicine 05/20/20 Fritz Gotti MD 5 [place] [address] Internal Medicine 05/20/20 Armani Padron MD [address] [place] [phone] Gastroenterology 09/04/20 Juanjo Hart OT [address] [place] [address] [email or web address] Transitions Art CoordinatorGeneral Duty Nurse Therapy 10/27/20 11/09/20 documented as of this encounter Additional Source Comments The information contained in this document represents components of the legal health record. It is not the complete legal health record.[facility]
--- OUTSIDE RECORDS SUMMARY | 2025-05-06 14:07 | XMS_ITS | Encounter Summary ---
Author Organization [facility] Address [address] [facility] [address] [place] [address] Phone Care Team Providers Care Movie Theater Manager Name Role Phone Chris Morales MD Unavailable [phone] Chris Morales MD Primary Care Provider [phone] Marce Cuellar NP Unavailable [phone] Rizwan Diaz MD Unavailable [phone] Shantanu Cole MD Unavailable [phone] Alfonso Peters MD Unavailable [phone] Fritz Gotti MD Unavailable Armani Padron MD Unavailable Encounter Details Date Type Department Care Team (Late st Contact Info) Description 12/10/2021 Procedure Pass [facility], Ct Scan - [address] [address] Social History Tobacco Use Types Packs/Day Years [...] Description 07/10/2025 1:00 PM EST Office Visit [facility] Internal Medicine 40 [place] [address] Chris Morales MD 40 [place] [address] [email or web address] 07/17/2025 3:00 PM EST Office Visit [facility] 22 [place] [address] Peña Andrew DO 22 [place] [address] [email or web address] 09/11/2025 12:30 PM EDT Office Visit [facility] Retina [address] [address] Peña Andres MD [address] [place] [address] Elida@[email or web address] 09/11/2025 1:00 PM EDT Appointment [facility] Glaucoma [address] [address] Peña Andres MD [address] [place] [address] [email or web address] 09/11/2025 1:30 PM EDT Office Visit [address] [address] Pete Small MD, PhD, MPH [address] [place] [address] [email or web address] 12/30/2025 2:00 PM EDT Office Visit [facility] Internal Medicine [address] [place], [place] [phone] Yury Vasquez PA-C 40 [place] [address] documented as of this encounter Visit Diagnoses Not on filedocumented in this encounter Additional Health Concerns Assessment Noted Time PHQ-2 Depression Total Score: 0 09/08/19 22 2:12 PM EST documented as of this encounter Care Teams Movie Theater Manager Relationship Specialty Start Date End Date Chris Morales MD 40 [place] [address] PCP - General Internal Medicine 05/24/17 Chris Morales MD 40 [place] [address] Insurance Assigned Provider 10/08/23 Marce Cuellar, MIDWIFE 40 [place] [address] Endocrinology 08/06/19 Rizwan Diaz MD [address] [place] [address] Cardiology 10/03/19 Shantanu Cole MD [address] [place] [address] [place] [address] Ophthalmology 11/27/19 Alfonso Peters MD [address] [place] [address] [place] [address] Internal Medicine 05/20/20 Fritz Gotti MD [address] [place] [address] [place] [address] Internal Medicine 05/20/20 Armani Padron MD [address] [place] [address] [place] [phone] Gastroenterology 09/04/20 documented as of this encounter Additional Source Comments The information contained in this document represents components of the legal health record. It is not the complete legal health record.[facility]
--- OUTSIDE RECORDS SUMMARY | 2025-05-06 14:07 | XMS_ITS | Encounter Summary ---
Author Organization Located Within [facility] Address [address] [facility] [address] [place] [address] Phone Care Team Providers Care Precision Instrument Maker Name Role Phone Chris Morales MD Unavailable [phone] Chris Morales MD Primary Care Provider [phone] Marce Cuellar NP Unavailable Rizwan Diaz MD Unavailable [phone] Shantanu Cole MD Unavailable [phone] Alfonso Peters MD Unavailable Fritz Gotti MD Unavailable Armani Padron MD Unavailable Juanjo Hart OT Unavailable Encounter Details Date Type Department Care Team (Late st Contact Info) Description 10/24/2020 Procedure Pass [facility], Ct Scan - [address] [address] Social History Tobacco Use Types Packs/Day Years [...] No Risk Indicated 10/24/2020 7:33 PM EDT Postema , Sherri Ruhs RN * [place] Suicide Severity Rating Scale (Screener/Recent Self-Report) Question Answer Date of Assessment Author 1. Wish to be (Past 1 Month) No 10/24/2020 7:33 PM EDT Postrony, Sherri zee RN 2. Non-Specific Active Suicidal Thoughts (Past 1 Month) No 10/24/2020 7:33 PM EDT Postrony, Sherri zee RN 6. Suicidal Behavior (Lifetime) No 10/24/2020 7:33 PM EDT Postrony, Sherri eze RN documented as of this encounter Plan of Treatment Upcoming Encounters Date Type Department Care Team (Late st Contact Info) Description 07/10/2025 1:00 PM EST Office Visit [facility] Internal Medicine [address] [place] [address] Chris Morales MD 40 [place] [address] 07/17/2025 3:00 PM EST Office Visit [facility] [address] [place] [address] Peña Andrew DO 22 [place] [address] 09/11/2025 12:30 PM EDT Office Visit [address] [address] Peña Andres MD [address] [place] [address] [email or web address] 09/11/2025 1:00 PM EDT Appointment [address] [address] Peña Andres MD [facility] [place] [address] [email or web address] 09/11/2025 1:30 PM EDT Office Visit [facility] [address] [place] [address] Pete Small MD, PhD, MPH [address] [place] [address] Corinna@[email or web address] 12/30/2025 2:00 PM EDT Office Visit [facility] Internal Medicine [address] [place] [address] Yury Vasquez PA-C [address] [place] [address] [email or web address] documented as of this encounter Visit Diagnoses Not on filedocumented in this encounter Additional Health Concerns Infection Onset Date Last Indicated Resolved Time CoV-Presumed 10/19/2021 10/19/2021 11/09/2021 1:23 AM EDT Assessment Noted Time PHQ-2 Depression Total Score: 0 08/06/19 20 1:20 PM EST documented as of this encounter Care Teams Precision Instrument Maker Relationship Specialty Start Date End Date Chris Morales MD [address] [place] [address] [email or web address] PCP - General Internal Medicine 05/24/17 Chris Morales MD [address] [place] [address] [email or web address] Insurance Assigned Provider 10/08/23 Marce Cuellar NP [address] [place] [address] Endocrinology 08/06/19 Rizwan Diaz MD [address] [place] [address] Cardiology 10/03/19 Shantanu Cole MD [address] [place] [address] Dr BALBUENA [address] [place] [address] Ophthalmology 11/27/19 Alfonso Peters MD [address] [place] [address] Dr BALBUENA [address] [place] [address] Internal Medicine 05/20/20 Fritz Gotti MD [address] [place] [address] Internal Medicine 05/20/20 Armani Padron MD [address] [place] [address] Dr Bennett [address] [place] [phone] Gastroenterology 09/04/20 Juanjo Hart OT [address] [place] [address] [email or web address] [email or web address] [place] Transitions Foreign ClerkCloth Finishing Range Tender Therapy 10/27/20 11/09/20 documented as of this encounter Additional Source Comments The information contained in this document represents components of the legal health record. It is not the complete legal health record.[facility]
--- OUTSIDE RECORDS SUMMARY | 2025-05-06 14:07 | XMS_ITS | Patient Health Record ---
Author Organization [facility] Address [address] [place] [address] Care Team Providers Care System Configuration Specialist Name Role Phone Chris Morales MD Primary Care Provider Armani Reece Jr Unavailable Allergies No Known Allergies Reason For Referral No Information Medications Medication SIG (Take, Route, Frequency, Duration) Notes Start Date End Date Status Sotalol HCl 80 MG 1 tablet Orally ever y 12 hrs; Duration: 30 day(s) Active amLODIPine Besylate 10 MG 1 tablet Orall y Once a day Active Vitamin B 12 500 MCG 1 tablet Orally Onc e a day; Duration: 30 day(s) Active Atorvastatin Calcium 20 MG 1 tablet Oral ly Once a day Active Brimonidine Tartrate 0.2 % 1 drop into a ffected eye Ophthalmic every 8 hrs Active Warfarin Sodium 1 MG 1 tablet Orally Onc e a day Active Latanoprost 0.005 % 1 drop into affected eye in the evening Ophthalmic Once a day Active Multivitamins Orally Active Lisinopril 40 MG 1 tablet Orally Once a day Active metFORMIN HCl 500 MG 2 tablets in am 1 t ablet at pm Orally twice a day Active Eliquis 5 MG as directed Orally Active Jardiance 25 MG 1 tablet Orally Once a day; Duration: 30 day(s) Active Timolol Maleate (Once-Daily) 0.5 % 1 drop into affected eye Ophthalmic Once a day Active Levemir 100 UNIT/ML Subcutaneous Active Immunizations Vaccine Route Administration Date Status Comme nts Influenza Unknown 06/10/2015 Administered Influenza Unknown 04/26/2023 Administered Problems Problem Type SNOMED Code ICD Code Onset Dates Problem Status W/U Status Risk Notes Problem Colon cancer screening (975068849) Colon cancer screening (Z12.11) Active confirmed Problem Long-term current use of anticoagulant (664061044) termite treater (current) use of anticoagulants (Z79.01) Active confirmed Problem Long-term current use of insulin (659370952) nursing home current use of insulin (Z79.4) Active confirmed Problem Anemia (795066547) Anemia, unspecified type (D64.9) Active confirmed Plan Of Treatment Pending Test Test Name Order Date FERRITIN 04/02/2024 CBC w/o DIFF 04/02/2024 IRON PROFILE 04/02/2024 Future Test Test Name Order Date COLONOSCOPY 06/12/2015 Insurance Providers Payer Name Payer Address Payer Phone Subscriber Number Group Number Insured Name Patient Relationship to Insured Coverage Start Date Coverage End Date MEDICARE OF [place] [address] [place] [address] [id number] ILSA MULTANI Self - patient is the insured Revl Insurance ([employer]) [address] [place] [address] [id number] ILSA MULTANI Self - patient is the insured Medical (General) History Medical History History ICD Code diabetes mellitus hemochromatosis, 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
--- OUTSIDE RECORDS SUMMARY | 2025-05-06 14:07 | XMS_ITS | Encounter Summary ---
Author Organization [facility] Address [address] [facility] [address] [place] [address] Phone Care Team Providers Care Roving Marker Name Role Phone Chris Morales MD Unavailable [phone] Chris Morales MD Primary Care Provider [phone] Marce Cuellar NP Unavailable Rizwan Diaz MD Unavailable [phone] Shantanu Cole MD Unavailable Alfonso Peters MD Unavailable Fritz Gotti MD Unavailable [phone] Armani Padron MD Unavailable Juanjo Hart OT Unavailable Encounter Details Date Type Department Care Team (Late st Contact Info) Description 10/29/2020 Procedure Pass [facility] [address] [place] [address] Social History Tobacco Use Types Packs/Day Years [...] Description 07/10/2025 1:00 PM EST Office Visit [facility] Internal Medicine 40 [place] [address] Chris Morales MD 40 [place] [address] [email or web address] 07/17/2025 3:00 PM EST Office Visit [facility] 22 [place] [address] Peña Andrew DO 22 [place] [address] [email or web address] 09/11/2025 12:30 PM EDT Office Visit [facility] [address] [address] Peña Andres MD [address] [place] [address] [email or web address] 09/11/2025 1:00 PM EDT Appointment [facility] Glaucoma [address] [address] Peña Andres MD [address] [place] [address] [email or web address] 09/11/2025 1:30 PM EDT Office Visit [facility] [address] [address] Pete Small MD, PhD, MPH [address] [place] [address] [email or web address] 12/30/2025 2:00 PM EDT Office Visit [facility] Internal Medicine [address] [place], [place] [phone] Yury Vasquez PA-C [address] [place] [address] [email or web address] documented as of this encounter Visit Diagnoses Not on filedocumented in this encounter Additional Health Concerns Infection Onset Date Last Indicated Resolved Time CoV-Presumed 10/19/2021 10/19/2021 11/09/2021 1:23 AM EDT Assessment Noted Time PHQ-2 Depression Total Score: 0 08/06/19 1:20 PM EST documented as of this encounter Care Teams Roving Marker Relationship Specialty Start Date End Date Chris Morales MD [address] [place] [address] [email or web address] PCP - General Internal Medicine 05/24/17 Chris Morales MD [address] [place] [address] [email or web address] Insurance Assigned Provider 10/08/23 Marce Cuellar NP [address] [place] [address] Endocrinology 08/06/19 Rizwan Diaz MD [address] [place] [address] Cardiology 10/03/19 Shantanu Cole MD [address] [place] [address] [place] [address] Ophthalmology 11/27/19 Alfonso Peters MD [address] [place] [address] [place] [address] Internal Medicine 05/20/20 Fritz Gotti MD [address] [place] [address] Internal Medicine 05/20/20 Armani Padron MD [address] [place] [phone] Gastroenterology 09/04/20 Juanjo Hart OT [address] [place] [address] [email or web address] Transitions Registered Nurse PractitionerFront End Ui Developer Therapy 10/27/20 11/09/20 documented as of this encounter Additional Source Comments The information contained in this document represents components of the legal health record. It is not the complete legal health record.[facility]
--- OUTSIDE RECORDS SUMMARY | 2025-05-06 14:07 | XMS_ITS | Encounter Summary ---
Author Organization [facility] Address [address] [place] [address] [place] [address] Phone Care Team Providers Care Brick Off Bearer Name Role Phone Chris Morales MD Unavailable [phone] Chris Morales MD Primary Care Provider [phone] Marce Cuellar NP Unavailable Rizwan Diaz MD Unavailable [phone] Shantanu Cole MD Unavailable [phone] Alfonso Peters MD Unavailable Fritz Gotti MD Unavailable Armani Padron MD Unavailable Juanjo Hart OT Unavailable Encounter Details Date Type Department Care Team (Late st Contact Info) Description 10/29/2020 Procedure Pass [facility] Cardiovascular And Interventional Radiology [address] [place] [address] Social History Tobacco Use Types Packs/Day Years [...] Description 07/10/2025 1:00 PM EST Office Visit [facility] Internal Medicine [address] [place] [address] Chris Morales MD 40 [place] [address] [email or web address] 07/17/2025 3:00 PM EST Office Visit [facility] 22 [place] [address] Peña Andrew DO 22 [place] [address] [email or web address] 09/11/2025 12:30 PM EDT Office Visit [facility] [address] [address] Peña Andres MD [address] [place] [address] [email or web address] 09/11/2025 1:00 PM EDT Appointment [facility] [address] [address] Peña Andres MD [address] [place] [address] [email or web address] 09/11/2025 1:30 PM EDT Office Visit [address] [address] Peet Small MD, PhD, MPH [address] [place] [address] [email or web address] 12/30/2025 2:00 PM EDT Office Visit [facility] Internal Medicine [address] [place], [place] [phone] Yury Vasquez PA-C 40 [place] [address] [email or web address] documented as of this encounter Visit Diagnoses Not on filedocumented in this encounter Additional Health Concerns Infection Onset Date Last Indicated Resolved Time CoV-Presumed 10/19/2021 10/19/2021 11/09/2021 1:23 AM EDT Assessment Noted Time PHQ-2 Depression Total Score: 0 08/06/19 1:20 PM EST documented as of this encounter Care Teams Brick Off Bearer Relationship Specialty Start Date End Date Chris Morales MD 40 [place] [address] [email or web address] PCP - General Internal Medicine 05/24/17 Chris Morales MD [address] [place] [address] [email or web address] Insurance Assigned Provider 10/08/23 Marce Cuellar NP [address] [place] [address] Endocrinology 08/06/19 Rizwan Diaz MD [address] [place] [address] Cardiology 10/03/19 Shantanu Cole MD [address] [place] [address] [place] [address] Ophthalmology 11/27/19 Alfonso Peters MD [address] [place] [address] [place] [address] Internal Medicine 05/20/20 Fritz Gotti MD 5 [place] [address] Internal Medicine 05/20/20 Armani Padron MD [address] [place] [phone] Gastroenterology 09/04/20 Juanjo Hart OT [address] [place] [address] [email or web address] Transitions Lard RendererChain Tender Therapy 10/27/20 11/09/20 documented as of this encounter Additional Source Comments The information contained in this document represents components of the legal health record. It is not the complete legal health record.[facility]
== END 2025-05-06 11:08 | disposition home or self-care (01) ==
LOC: HO.HAP 11:07
PROVIDERS: Visit Provider Internal Medicine
DX: Z13.89 Encounter for screening for other disorder (principal)

== ENCOUNTER 2025-05-07 12:00 | Outpatient (REF) | payer SELFPAY ==
--- OUTSIDE RECORDS SUMMARY | 2025-05-07 14:48 | XMS_ITS | Clinical Summary ---
Author Organization [address] [facility] Address [address] [place] [address] Phone Care Team Providers Care Policy Adviser Name Role Phone Chris Morales MD Primary Care Provider [phone] Social History Tobacco Use Types Packs/Day Years Used Date Smoking Tobacco: Never Assessed Sex and Gender Information Value Date Recorded Sex Assigned at Not on file Legal Sex Male 6:39 PM EST Gender Identity Not on file Sexual Orientation Not on file Plan of Treatment Upcoming Encounters Date Type Department Care Team ([facility] Contact Info) Description 05/21/2025 2:00 PM EST Office Visit Orthopedic Surgery [address] [place] [phone] Ken Awad, DPM [address] [place] [address] Health Maintenance Due Date Last [...] age to complete this topic Insurance MEDICARE [facility] Care Teams Policy Adviser Relationship Specialty Start Date End Date Chris Morales MD 40 [place] [address] PCP - General 12/09/12
--- OUTSIDE RECORDS SUMMARY | 2025-05-07 14:48 | XMS_ITS | Encounter Summary ---
Author Organization [facility] Address [address] [facility] [address] [place] [address] Phone Care Team Providers Care Quality Control Clerk Name Role Phone Chris Morales MD Unavailable [phone] Chris Morales MD Primary Care Provider [phone] Marce Cuellar NP Unavailable Rizwan Diaz MD Unavailable [phone] Shantanu Cole MD Unavailable [phone] Alfonso Peters MD Unavailable Fritz Gotti MD Unavailable [phone] Armani Padron MD Unavailable Reason for Visit * Reason Onset Date Comments Medication Problem 05/03/2025 Encounter Details Date Type Department Care Team (Late st Contact Info) Description 05/03/2025 Telephone [facility] [address] [place] [address] Peña Andrew, DO 22 [place] [address] Medication Problem Social History Tobacco Use Types [...] Description 07/10/2025 1:00 PM EST Office Visit [facility] Internal Medicine [address] [place] [address] Chris Morales MD 40 [place] [address] 07/17/2025 3:00 PM EST Office Visit [facility] 22 [place] [address] Peña Andrew DO 22 [place] [address] 09/11/2025 12:30 PM EDT Office Visit [facility] [address] [address] Peña Andres MD [address] [place] [address] [email or web address] 09/11/2025 1:00 PM EDT Appointment [address] [address] Peña Andres MD [address] [place] [address] [email or web address] 09/11/2025 1:30 PM EDT Office Visit [address] [address] Pete Small MD, PhD, MPH [address] [place] [address] [email or web address] 12/30/2025 2:00 PM EDT Office Visit [facility] [place] Internal Medicine [address] [place], [place] [phone] Yury Vasquez PA-C 40 [place], [place] [phone] [email or web address] documented as of this encounter Visit Diagnoses Not on filedocumented in this encounter Additional Health Concerns Assessment Noted Time PHQ-2 Depression Total Score: 0 12/26/19 11:51 AM EDT documented as of this encounter Care Teams Quality Control Clerk Relationship Specialty Start Date End Date Chris Morales MD 40 [place] [address] [email or web address] PCP - General Internal Medicine 05/24/17 Chris Morales MD 40 [place] [address] [email or web address] Insurance Assigned Provider 10/08/23 Marce Cuellar NP [address] [place] [address] Endocrinology 08/06/19 Rizwan Diaz MD [address] [place] [address] Cardiology 10/03/19 Shantanu Cole MD [address] [place] [address] [address] BALBUENA [address] [place] [address] Ophthalmology 11/27/19 Alfonso Peters MD [address] [place] [address] Dr BALBUENA [address] [place] [address] Internal Medicine 05/20/20 Fritz Gotti MD [address] [place] [address] Internal Medicine 05/20/20 Armani Padron MD [address] [place] [address] Dr Bennett [address] [place] [phone] Gastroenterology 09/04/20 documented as of this encounter Additional Source Comments The information contained in this document represents components of the legal health record. It is not the complete legal health record.[facility]
--- OUTSIDE RECORDS SUMMARY | 2025-05-07 14:48 | XMS_ITS | Clinical Summary ---
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 3 each 01/10/20 24 Active insulin pen needles, disposable, (Elecsnet ULTRA-FINE MINI PEN NEEDLE) 31 gauge x [...] Overview (01/11/2024): Follows with Dr. Gotti in [place]. Last visit December 2023, stable getting phlebotomy. Dr. Gotti was referring to GI to rule out GI occult blood loss. 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 See [...] to make an appointment with the physician instructional support assistant so that they can get him started on this device. So he needs to call him to schedule an appointment with the physician instructional support assistant which is separate from my appointments. Assessment [...] increase his glucose levels. He also drinks ivej-tcc-xevi with it which will increase the glucose [...] A1c goals of less than 7%. The [place] geriatric Society recommends a goal of A1c of 7.5 to 8% in older patients with moderate comorbidities and life expectancy less than 10 years. The [place] diabetes Association recommends a goal of less [...] implant ab externo Laterality: right eye Surgeon: Collin Erickson MD, PhD Urgency*: Within 1 month [...] on atorvastatin 20 mg. No changes required. custodial (current) use of insulin 12/07/2019 Essential hypertension [...] metoprolol. It was noted that his primary blueprinting and photocopy supervisor was at [facility]. On 11/[address] Atwood of [facility] who did well and given the [...] 10:45 AM EDT): Patient brought in their ITS KOOLcom G7 CGM to be shown how to use it. He was shown how to set up and place the sensor. He demonstrated good understanding via teach back. He placed the sensor to the back of their arm without any issues. Showed him how to use the termite technician. He was able to find the sensor code and enter into the termite technician to activate the sensor. Reviewed all of the available menu options. Reviewed the alarms on the termite technician. He will call with any issues managing [...] Team Description 05/03/2025 Telephone [facility] [address] [place] [address] Peña Andrew DO Medication Problem 03/28/2025 12:40 PM EDT Office Visit [address] [place] [address] Pete Small MD, PhD, MPH Pseudoexfoliation glaucoma, indeterminate stage (Primary Dx) 03/25/2025 Telephone [facility] Internal Medicine [address] [place] [address] Chris Morales MD Medication Refill 03/15/2025 Refill [facility] Internal Medicine [address] [place] [address] Chris Morales MD Medication Refill 03/12/2025 1:20 PM EDT Office Visit [facility] [address] [place] [address] [place] [address] Peña Andrew DO Hyperlipidemia LDL goal <70 (Primary Dx); Type 2 diabetes mellitus with microalbuminuria, with long-term current use of insulin; 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 mild 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, with long-term current use of insulin 03/08/2025 10:10 AM EDT - 03/08/2025 11:59 PM EDT Hospital Encounter [facility] [place] [place] [address] Peña Andrew DO Discharge Disposition: Home or Self Care 02/09/2025 Refill [facility] [address] [address] Pete Small MD, PhD, MPH Medication Refill 02/09/2025 Refill [facility] [address] [place] [address] [place] [address] Peña Andrew DO Medication Refill from Last [...] Description 07/10/2025 1:00 PM EST Office Visit [facility] Internal Medicine [address] [place] [address] Chris Morales MD [address] [place] [address] [email or web address] 07/17/2025 3:00 PM EST Office Visit [facility] [address] [place] [address] Peña Andrew DO [address] [place] [address] [email or web address] 09/11/2025 12:30 PM EDT Office Visit [facility] [address] [address] Peña Andres MD [address] [place] [address] [email or web address] 09/11/2025 1:00 PM EDT Appointment [facility] Glaucoma [address] [address] Peña Andres MD [address] [place] [address] [email or web address] 09/11/2025 1:30 PM EDT Office Visit [address] [address] Pete Small MD, PhD, MPH [address] [place] [address] [email or web address] 12/30/2025 2:00 PM EDT Office Visit [facility] Internal Medicine [address] [place] [address] Yury Vasquez PA-C [address] [place] [address] [email or web address] Health [...] this topic Medical Devices Implanted Type Area Rapier Insertion Loom Fixer Device Identifier Shelf Expiration Date Model / Serial / Lot Iol Bilateral: Eye Thr Left: Hip Implant Xen 45 Gel Stent - [id number] Implanted:Qty: 1 on 10/21/2020 by Collin Erickson MD, PhD at [facility] at [facility] 12/01/2022 [id number] / [id number] / [id number] Procedures Procedure Name Priority Date/Time Associated Diagnosis [...] HEMOGLOBIN A1C 7.0(H) 4.3 - 5.8 % [facility] Blood 03/08/2025 10:3 5 AM EDT 03/08/2025 10:37 AM EDT Peña Andrew DO LAB BLOOD BKR ORDERABLES Final R esult [facility] [address] [place], [place] [id number] * (ABNORMAL) Basic metabolic panel (12/25/2024 1:56 PM EDT) SODIUM 137 133 - 146 mmol/L [facility] CHLORIDE 101 96 - 108 mmol/L [facility] POTASSIUM 4.4 3.3 - 5.1 mmol/L [facility] CO2 22 21 - 35 mmol/L [facility] BUN 16 6 - 19 mg/dL [facility] CREATININE 0.90 0.5 - 1.5 mg/dL [facility] GLUCOSE 106(H) 70 - 99 mg/dL [facility] CALCIUM 9.6 8.4 - 10.3 mg/dL [facility] EGFR 87 >59 mL/min/1.7 3m2 [facility] Comment:Estimated glomerular filtration rate calculated using the CKD-EPI refit equation. ANION GAP 18 10 - 20 mmol/L [facility] Blood 12/25/2024 1:56 PM EDT 12/25/2024 1:58 PM EDT us Chris Morales MD LAB BLOOD BKR ORDERABLES Brittny l Result Performing Organization Address [facility] Co de Phone Number [address] [address] * Lipid panel (11/12/2024 10:06 AM EDT) HDL 33 mg/dL [facility] Comment: Interpretation <40 mg/dL: Low HDL cholesterol (major risk factor for CHD) Greater than or equal to 60 mg/dL: High HDL cholesterol ( negative risk factor for CHD) HDL - cholesterol is affected by a number of factors, e.g. smoking, excerise, hormones, sex and age. CHOLESTEROL 119 0 - 240 mg/dL [facility] TRIGLYCERIDES 98 30 - 160 mg/dL [facility] LDL 66 50 - 129 mg/dL [facility] Comment: LDL levels in terms of risk for coronary heart disease: <100 mg/dL: Optimal 100-129 mg/dL: Near or above optimal 130-159 mg/dL: Borderline high 160-189 mg/dL: High >190 mg/dL: Very High CARDIAC RISK RATIO 3.6 3.4 - 5.0 C [facility] Blood 11/12/2024 10:0 6 AM EDT 11/12/2024 10:18 AM EDT us Peña Andrew DO LAB BLOOD BKR ORDERABLES Final R esult Performing Organization Address City/[facility]/ZIP Co de Phone Number [address] [address] * DIABETES EYE EXAM FOR RESULT ENTRY ONLY (02/04/2020) us Historical Provider HEALTH MAINTENANCE Edited Result - Final * Hepatitis C antibody, qualitative (08/02/2019 9:35 AM EST) HCV NON-REACTIV E NON-REACTI VE [facility] Blood 08/02/2019 9:35 AM EST 08/02/2019 9:37 AM EST us Chris Morales MD LAB BLOOD BKR ORDERABLES Brittny mike Result [facility] [address] [place] [address] from Last 3 Months or Most Recently Relevant to Health Maintenance Insurance MEDICARE PART A & B Member Subscriber Plan / Payer (Ef fective 2011-Present) Name:Timur Multani Member ID:[id number] Relation to Subscriber:Self Name:Timur Multani Subscriber ID:[id number] Payer ID:[id number] Group ID:Not on file Type:Medicare Address: [employer] [facility] [address] [place] [phone] [facility] MEDICARE SUPPLEMENT MEDICARE PART A & B [facility] [employer] MEDICARE SUPPLEMENT MEDICARE PART A & B [facility] [employer] MEDICARE SUPPLEMENT MEDICARE PART A & B [facility] MEDICARE SUPPLEMENT MEDICARE PART A & B [facility] [employer] MEDICARE SUPPLEMENT MEDICARE PART A & B Member Subscriber Plan / Payer ( fective 2011-Present) Name:Timur Multani Member ID:[id number] Relation to Subscriber:Self Name:Timur Multani Subscriber ID:[id number] Payer ID:[id number] Group ID:Not on file Type:Medicare Address: [facility] [employer] [facility] [address] [place] [address] [facility] EX[employer]ION MEDICARE SUPPLEMENT MEDICARE PART A & B [employer] MEDICARE SUPPLEMENT MEDICARE PART A & B [employer] MEDICARE SUPPLEMENT MEDICARE PART A & B [facility] EX[employer]ION MEDICARE SUPPLEMENT Advance Directives For more information, please contact: [phone] (9AM - 5PM [facility], Tuesday-Tuesday) Documents on File Type Date Recorded Patient Special Machine Stitcher Expl anation Healthcare Proxy 10/22/2020 * Full Code (Latest Code Status on File) Date Activated Date Inactivated Comments 10/25/2020 2:20 AM Question Answer Comments Code Status Confirmed With: PatientFamily Care Teams Optical Scientist Relationship Specialty Start Date End Date Chris Morales MD [address] [place] [address] [email or web address] PCP - General Internal Medicine 05/24/17 Chris Morales MD [address] [place] [address] [email or web address] Insurance Assigned Provider 10/08/23 Marce Cuellar NP [address] [place] [address] Endocrinology 08/06/19 Rizwan Diaz MD [address] [place] [address] Cardiology 10/03/19 Shantanu Cole MD [address] [place] [address] Dr [address] [place] [address] Ophthalmology 11/27/19 Alfonso Peters MD [address] [place] [address] [place] [address] Internal Medicine 05/20/20 Fritz Gotti MD [address] [place] [address] Internal Medicine 05/20/20 Armani Padron MD [address] [place] [address] Dr Bennett [facility] [place] [phone] Gastroenterology 09/04/20 Additional Source Comments The information contained in this document represents components of the legal health record. It is not the complete legal health record.[facility]
--- OUTSIDE RECORDS SUMMARY | 2025-05-07 14:48 | XMS_ITS | Encounter Summary ---
Author Organization [facility] Address [address] [facility] [address] [place] [address] Phone Care Team Providers Care Prison Guard Name Role Phone Chris Morales MD Unavailable [phone] Chris Morales MD Primary Care Provider [phone] Marce Cuellar NP Unavailable Rizwan Diaz MD Unavailable [phone] Shantanu Cole MD Unavailable Alfonso Peters MD Unavailable [phone] Fritz Gotti MD Unavailable Armani Padron MD Unavailable Encounter Details Date Type Department Care Team (Late st Contact Info) Description 11/22/2020 Transcribe Orders Virtual Department [address] [place] [address] Alexi Atwood MD [address] [facility] [address] [place] [address] [email or web address] Atrial fibrillation, unspecified type (Primary Dx) [...] Description 07/10/2025 1:00 PM EST Office Visit [facility] Internal Medicine [address] [place] [address] Chris Morales MD [address] [place] [address] 07/17/2025 3:00 PM EST Office Visit [facility] [address] [place] [address] Peña Andrew DO [address] [place] [address] 09/11/2025 12:30 PM EDT Office Visit [facility] [address] [address] Peña Andres MD [address] [place] [address] [email or web address] 09/11/2025 1:00 PM EDT Appointment [facility] Glaucoma [address] [address] Peña Andres MD [address] [place] [address] [email or web address] 09/11/2025 1:30 PM EDT Office Visit [facility] Glaucoma [address] [address] Pete Small MD, PhD, MPH [address] [place] [address] [email or web address] 12/30/2025 2:00 PM EDT Office Visit [facility] Internal Medicine [address] [place] [address] Yury Vasquez PA-C [address] [place] [address] Pending Results Name Type Priority Associated Diagnoses [...] documented as of this encounter Care Teams Prison Guard Relationship Specialty Start Date End Date Chris Morales MD [address] [place] [address] PCP - General Internal Medicine 05/24/17 Chris Morales MD [address] [place] [address] [email or web address] Insurance Assigned Provider 10/08/23 Marce Cuellar NP [address] [place] [address] Endocrinology 08/06/19 Rizwan Diaz MD [address] [place] [address] Cardiology 10/03/19 Shantanu Cole MD [address] [place] [address] Dr [address]NA [address] [place] [address] Ophthalmology 11/27/19 Alfonso Peters MD [address] [place] [address] [place] [address] Internal Medicine 05/20/20 Fritz Gotti MD [address] [place] [address] Internal Medicine 05/20/20 Armani Padron MD [address] [place] [address] Dr Bennett [facility] [place] [phone] Gastroenterology 09/04/20 documented as of this encounter Additional Source Comments The information contained in this document represents components of the legal health record. It is not the complete legal health record.[facility]
--- OUTSIDE RECORDS SUMMARY | 2025-05-07 14:48 | XMS_ITS | Encounter Summary ---
Author Organization [facility] Address [address] [facility] [address] [place] [address] Phone Care Team Providers Care Mine Wirer Name Role Phone Chris Morales MD Unavailable [phone] Chris Morales MD Primary Care Provider [phone] Marce Cuellar NP Unavailable Rizwan Diaz MD Unavailable [phone] Sahntanu Cole MD Unavailable Aflonso Peters MD Unavailable Fritz Gotti MD Unavailable Armani Padron MD Unavailable Juanjo Hart OT Unavailable Encounter Details Date Type Department Care Team (Late st Contact Info) Description 07/28/2020 Telephone [facility] [address] [address] Lianne [email or web address] Social History Tobacco Use Types Packs/Day Years [...] Description 07/10/2025 1:00 PM EST Office Visit [facility] Internal Medicine [address] [place] [address] Chris Morales MD [address] [place] [address] [email or web address] 07/17/2025 3:00 PM EST Office Visit [facility] [address] [place] [address] Peña Andrew DO [address] [place] [address] 09/11/2025 12:30 PM EDT Office Visit [facility] [address] [address] Peña Andres MD [address] [place] [address] [email or web address] 09/11/2025 1:00 PM EDT Appointment [facility] [address] [address] Peña Andres MD [address] [place] [address] [email or web address] 09/11/2025 1:30 PM EDT Office Visit [facility] [address] [address] Pete Small MD, PhD, MPH [address] [place] [address] [email or web address] 12/30/2025 2:00 PM EDT Office Visit [facility] Internal Medicine [address] [place] [address] Yury Vasquez PA-C [address] [place] [address] [email or web address] documented as of this encounter Visit Diagnoses Not on filedocumented in this encounter Additional Health Concerns Infection Onset Date Last Indicated Resolved Time CoV-Presumed 10/19/2021 10/19/2021 11/09/2021 1:23 AM EDT Assessment Noted Time PHQ-2 Depression Total Score: 0 08/06/19 1:20 PM EST documented as of this encounter Care Teams Mine Wirer Relationship Specialty Start Date End Date Chris Morales MD [address] [place] [address] [email or web address] PCP - General Internal Medicine 05/24/17 Chris Morales MD [address] [place] [address] [email or web address] Insurance Assigned Provider 10/08/23 Marce Cuellar, MANDOLIN REPAIR PERSON [address] [place] [address] Endocrinology 08/06/19 Rizwan Diaz MD [address] [place] [address] Cardiology 10/03/19 Shantanu Cole MD [address] [place] [address] [place] [address] Ophthalmology 11/27/19 Alfonso Peters MD [address] [place] [address] [place] [address] Internal Medicine 05/20/20 Fritz Gotti MD [address] [place] [address] Internal Medicine 05/20/20 Armani Padron MD [address] [place] [phone] Gastroenterology 09/04/20 Juanjo Hart OT [address] [place] [address] [email or web address] Transitions [employer] FinisherCardiology Associate Therapy 10/27/20 11/09/20 documented as of this encounter Additional Source Comments The information contained in this document represents components of the legal health record. It is not the complete legal health record.[facility]
--- OUTSIDE RECORDS SUMMARY | 2025-05-07 14:49 | XMS_ITS | Encounter Summary ---
Author Organization [facility] Address [address] [facility] [address] [place] [address] Phone Care Team Providers Care Back Shoe Worker Name Role Phone Chris Morales MD Unavailable [phone] Chris Morales MD Primary Care Provider [phone] Marce Cuellar NP Unavailable [phone] Rizwan Diaz MD Unavailable [phone] Shantanu Cole MD Unavailable Alfonso Peters MD Unavailable [phone] Fritz Gotti MD Unavailable Armani Padron MD Unavailable Encounter Details Date Type Department Care Team (Late st Contact Info) Description 08/26/2021 Procedure Pass [facility] [place] [facility] DEPT [address] [place] [address] Social History Tobacco Use Types Packs/Day Years [...] Description 07/10/2025 1:00 PM EST Office Visit [facility] Internal Medicine [address] [place] [address] Chris Morales MD [address] [place] [address] 07/17/2025 3:00 PM EST Office Visit [facility] [address] [place] [address] Peña nAdrew DO [address] [place] [address] [email or web address] 09/11/2025 12:30 PM EDT Office Visit [facility] [address] [address] Peña Andres MD [address] [place] [address] [email or web address] 09/11/2025 1:00 PM EDT Appointment [facility] Glaucoma [address] [address] Peña Andres MD [address] [place] [address] [email or web address] 09/11/2025 1:30 PM EDT Office Visit [address] [address] Pete Small MD, PhD, MPH [address] [place] [address] [email or web address] 12/30/2025 2:00 PM EDT Office Visit [facility] Internal Medicine [address] [place], [place] [phone] Yury Vasquez PA-C [address] [place] [address] [email or web address] documented as of this encounter Visit Diagnoses Not on filedocumented in this encounter Additional Health Concerns Infection Onset Date Last Indicated Resolved Time CoV-Presumed 10/19/2021 10/19/2021 11/09/2021 1:23 AM EDT Assessment Noted Time PHQ-2 Depression Total Score: 0 08/06/19 1:20 PM EST documented as of this encounter Care Teams Back Shoe Worker Relationship Specialty Start Date End Date Chris Morales MD [address] [place] [address] [email or web address] PCP - General Internal Medicine 05/24/17 Chris Morales MD [address] [place] [address] [email or web address] Insurance Assigned Provider 10/08/23 Marce Cuellar, VENEER TRIMMER [address] [place] [address] Endocrinology 08/06/19 Rizwan Diaz MD [address] [place] [address] Cardiology 10/03/19 Shantanu Cole MD [address] [place] [address] [place] [address] Ophthalmology 11/27/19 Alfonso Peters MD [address] [place] [address] [place] [address] Internal Medicine 05/20/20 Fritz Gotti MD [address] [place] [address] Internal Medicine 05/20/20 Armani Padron MD [address] [place] [phone] Gastroenterology 09/04/20 documented as of this encounter Additional Source Comments The information contained in this document represents components of the legal health record. It is not the complete legal health record.[facility]
--- OUTSIDE RECORDS SUMMARY | 2025-05-07 14:49 | XMS_ITS | Encounter Summary ---
Author Organization [facility] Address [address] [facility] [address] [place] [address] Phone Care Team Providers Care Firearms Instructor Name Role Phone Chris Morales MD Unavailable Sammie Whitman MD Unavailable [phone] Chris Morales MD Unavailable [phone] Claudia Lozano MAKE UP OPERATOR HELPER Unavailable [phone] Chris Morales MD Primary Care Provider Marce Cuellar MAKE UP OPERATOR HELPER Unavailable Rizwan Diaz MD Unavailable [phone] Shantanu Cole MD Unavailable Alfonso Peters MD Unavailable [phone] Fritz Gotti MD Unavailable Armani Padron MD Unavailable Juanjo Hart OT Unavailable [phone] Encounter Details Date Type Department Care Team (Latest Contact Info) Description 10/20/2017 Transcribe Orders [address] [place] [address] Chris Morales MD [address] [place], [place] [phone] Paroxysmal atrial fibrillation (Primary Dx); Essential hypertension, [...] Description 07/10/2025 1:00 PM EST Office Visit [facility] Internal Medicine 40 [place] [address] Chris Morales MD 40 [place] [address] [email or web address] 07/17/2025 3:00 PM EST Office Visit [facility] 22 [place] [address] Peña Andrew DO 22 [place] [address] 09/11/2025 12:30 PM EDT Office Visit [address] [address] Peña Andres MD [address] [place] [address] [email or web address] 09/11/2025 1:00 PM EDT Appointment [address] [address] Peña Andres MD [address] [place] [address] [email or web address] 09/11/2025 1:30 PM EDT Office Visit [facility] [address] 1[address] [place] [address] Pete Small MD, PhD, MPH [address] [place] [address] [email or web address] .[facility] 12/30/2025 2:00 PM EDT Office Visit [facility] Internal Medicine 40 [place] [address] Yury Vasquez PA-C 40 [place] [address] [email or web address] documented as of this encounter Results * PSA (screening) (10/20/2017 10:11 AM EDT) PSA 2.03 0 - 4.00 ng/mL [facility] Blood 10/20/2017 10:1 1 AM EDT 10/20/2017 10:13 AM EDT us Chris Morales MD LAB BLOOD BKR ORDERABLES Brittny l Result Performing Organization Address City/[facility]/ZIP Co de Phone Number [address] [address] * (ABNORMAL) Microalbumin/creatinine ratio, random urine (10/20/2017 10:11 AM EDT) URINE MICROALBUMIN 3.3(H) 0 - 2.3 mg/dL [facility] URINE CREATININE 101 mg/dL [facility] MICROALB/CRE RATIO 32.7(H) 0 - 20 mg/g Cre [facility] Urine (Urine) 10/20/2017 10: 11 AM EDT 10/20/2017 10:13 AM EDT us Chris Morales MD LAB URINE ORDERABLES Final Re sult [address] [place] [address] * (ABNORMAL) Hemoglobin A1c (10/20/2017 10:11 AM EDT) HEMOGLOBIN A1C 8.8(H) 4.3 - 5.8 % [facility] Blood 10/20/2017 10:1 1 AM EDT 10/20/2017 10:13 AM EDT us Chris Morales MD LAB BLOOD BKR ORDERABLES Brittny mike Result [address] [address] * (ABNORMAL) Comprehensive metabolic panel (10/20/2017 10:11 AM EDT) SODIUM 143 133 - 146 mmol/L [facility] POTASSIUM 4.2 3.3 - 5.1 mmol/L [facility] CHLORIDE 102 96 - 108 mmol/L [facility] CO2 29 21 - 35 mmol/L [facility] BUN 22(H) 6 - 19 mg/dL [facility] CREATININE 1.00 0.5 - 1.5 mg/dL [facility] GLUCOSE 199(H) 70 - 99 mg/dL [facility] ALBUMIN 4.4 3.9 - 4.8 g/dL [facility] TOTAL PROTEIN 7.4 6.5 - 8.0 g/dL [facility] CALCIUM 9.6 8.4 - 10.3 mg/dL [facility] ALKALINE PHOSPHATASE 72 39 - 117 U/L [facility] TOTAL BILIRUBIN 1.0 0.0 - 1.2 mg/dL [facility] AST 19 0 - 37 U/L [facility] ALT 9 0 - 40 U/L [facility] GLOBULIN 3.0 1 - 4.8 g/dL [facility] EGFR 75 >59 mL/min/1.7 3m2 [facility] Comment:If patient is black, multiply result by 1.159. The eGFR calculation has changed from the MDRD equation to the CKD-EPI equation as of September 06, 2017. ANION GAP 16 10 - 20 mmol/L [facility] Blood 10/20/2017 10:1 1 AM EDT 10/20/2017 10:13 AM EDT Chris Morales MD LAB BLOOD BKR ORDERABLES Brittny l Result Performing Organization Address [facility] Co de Phone Number [address] [address] * CBC (10/20/2017 10:11 AM EDT) WBC 9.10 3.40 - 11.20 K/uL [facility] RBC 4.86 4.50 - 5.50 M/uL [facility] HGB 15.0 13.0 - 17.0 g/dL [facility] HCT 45.1 40.0 - 51.0 % [facility] PLT 204 130 - 400 K/uL [facility] MCV 92.8 79.0 - 98.0 fL [facility] MCH 30.9 27.0 - 34.8 pg [facility] MCHC 33.3 31.5 - 36.0 g/dL [facility] RDW 12.6 10.8 - 14.6 % [facility] MPV 9.4 9.4 - 12.4 fl [facility] NRBC 0.00 /100 WBCs [facility] ABSOLUTE NRBC 0.00 K/uL [facility] Blood 10/20/2017 10:1 1 AM EDT 10/20/2017 10:13 AM EDT Chris Morales MD LAB BLOOD BKR ORDERABLES Brittny l Result Performing Organization Address City/[facility]/ZIP Co de Phone Number [address] [address] documented in this encounter Visit Diagnoses Diagnosis [...] documented as of this encounter Care Teams Firearms Instructor Relationship Specialty Start Date End Date Chris Morales MD 40 [place] [address] PCP - General Internal Medicine 05/24/17 Chris Morales MD [address] [place] [address] Insurance Assigned Provider 10/08/23 Sammie Whitman MD [address] [place] [address] Historical LMR Provider 04/23/17 08/05/19 Chris Morales MD [address] [place] [address] Historical LMR Provider 04/23/17 08/05/19 Claudia Lozano, MAKE UP OPERATOR HELPER [address] [place] [address] Historical LMR Provider 04/23/17 08/05/19 Marce Cuellar, MAKE UP OPERATOR HELPER [address] [place] [address] Endocrinology 08/06/19 Rizwan Diaz MD [address] [place] [address] Cardiology 10/03/19 Shantanu Cole MD [address] [place] [address] [place] [address] Ophthalmology 11/27/19 Alfonso Peters MD [address] [place] [address] SREE Madden [facility] [address] Internal Medicine 05/20/20 Fritz Gotti MD [address] [place] [address] Internal Medicine 05/20/20 Armani Padron MD [address] [place] [address] Sabrina [address] [place] [phone] Gastroenterology 09/04/20 Juanjo Hart OT [address] [place] [address] [email or web address] Transitions Take Out WaitressNewspaper Illustrator Therapy 10/27/20 11/09/20 documented as of this encounter Additional Source Comments The information contained in this document represents components of the legal health record. It is not the complete legal health record.[facility]
--- OUTSIDE RECORDS SUMMARY | 2025-05-07 14:49 | XMS_ITS | Encounter Summary ---
Author Organization [facility] Address [address] [facility] [address] [place] [address] Phone Care Team Providers Care Humanities Coordinator Name Role Phone Chris Morales MD Unavailable [phone] Chris Morales MD Primary Care Provider [phone] Marce Cuellar NP Unavailable [phone] Rizwan Diaz MD Unavailable [phone] Shantanu Cole MD Unavailable Alfonso Peters MD Unavailable Fritz Gotti MD Unavailable [phone] Armani Padron MD Unavailable Juanjo Hart OT Unavailable Encounter Details Date Type Department Care Team (Late st Contact Info) Description 10/29/2020 Procedure Pass [facility] 30 [place] [address] Social History Tobacco Use Types Packs/Day Years [...] Description 07/10/2025 1:00 PM EST Office Visit [facility] Internal Medicine 40 [place] [address] Chris Morales MD 40 [place] [address] [email or web address] 07/17/2025 3:00 PM EST Office Visit [facility] 22 [place] [address] Peña Andrew DO 22 [place] [address] [email or web address] 09/11/2025 12:30 PM EDT Office Visit [facility] Retina [address] [address] Peña Andres MD [address] [place] [address] [email or web address] 09/11/2025 1:00 PM EDT Appointment [facility] Glaucoma [address] [address] Peña Andres MD [address] [place] [address] Elida@[email or web address] 09/11/2025 1:30 PM EDT Office Visit [facility] Glaucoma [address] [address] Pete Small MD, PhD, MPH [address] [place] [address] [email or web address] .[email or web address] 12/30/2025 2:00 PM EDT Office Visit [facility] Internal Medicine [address] [place], [place] [phone] Yury Vasquez PA-C 40 [place] [address] [email or web address] documented as of this encounter Visit Diagnoses Not on filedocumented in this encounter Additional Health Concerns Infection Onset Date Last Indicated Resolved Time CoV-Presumed 10/19/2021 10/19/2021 11/09/2021 1:23 AM EDT Assessment Noted Time PHQ-2 Depression Total Score: 0 08/06/19 1:20 PM EST documented as of this encounter Care Teams Humanities Coordinator Relationship Specialty Start Date End Date Chris Morales MD [address] [place] [address] [email or web address] PCP - General Internal Medicine 05/24/17 Chris Morales MD [address] [place] [address] [email or web address] Insurance Assigned Provider 10/08/23 Marce Cuellar NP [address] [place] [address] Endocrinology 08/06/19 Rizwan Diaz MD [address] [place] [address] Cardiology 10/03/19 Shantanu Cole MD [address] [place] [address] [place] [address] Ophthalmology 11/27/19 Alfonso Peters MD [address] [place] [address] [place] [address] Internal Medicine 05/20/20 Fritz Gotti MD [address] [place] [address] Internal Medicine 05/20/20 Armani Padron MD [address] [place] [phone] Gastroenterology 09/04/20 Juanjo Hart OT [address] [place] [address] [email or web address] Transitions Salesperson ShoesLaboratory Tech Therapy 10/27/20 11/09/20 documented as of this encounter Additional Source Comments The information contained in this document represents components of the legal health record. It is not the complete legal health record.[facility]
--- OUTSIDE RECORDS SUMMARY | 2025-05-07 14:49 | XMS_ITS | Encounter Summary ---
Author Organization [facility] Address [address] [facility] [address] [place] [address] Phone Care Team Providers Care Shake Maker Name Role Phone Chris Morales MD Unavailable [phone] Chris Morales MD Primary Care Provider [phone] Marce Cuellar NP Unavailable Rizwan Diaz MD Unavailable [phone] Shantanu Cole MD Unavailable Alfonso Peters MD Unavailable Fritz Gotti MD Unavailable Armani Padron MD Unavailable Juanjo Hart OT Unavailable Encounter Details Date Type Department Care Team (Late st Contact Info) Description 10/29/2020 Procedure Pass [facility] Cardiovascular And Interventional Radiology 30 [place] [address] Social History Tobacco Use Types Packs/Day Years [...] Description 07/10/2025 1:00 PM EST Office Visit [facility] Internal Medicine 40 [place] [address] Chris Morales MD 40 [place] [address] [email or web address] 07/17/2025 3:00 PM EST Office Visit [facility] 22 [place] [address] Peña Andrew DO 22 [place] [address] [email or web address] 09/11/2025 12:30 PM EDT Office Visit [facility] Retina [address] [address] Peña Andres MD [address] [place] [phone] [email or web address] 09/11/2025 1:00 PM EDT Appointment [facility] Glaucoma [address] [address] Peña Andres MD [address] [place] [address] [email or web address] 09/11/2025 1:30 PM EDT Office Visit [address] [address] Pete Small MD, PhD, MPH [address] [place] [address] Corinna@[email or web address] 12/30/2025 2:00 PM EDT Office Visit [facility] Internal Medicine [address] [place], [place] [phone] Yury Vasquez PA-C 40 [place] [address] [email or web address] documented as of this encounter Visit Diagnoses Not on filedocumented in this encounter Additional Health Concerns Infection Onset Date Last Indicated Resolved Time CoV-Presumed 10/19/2021 10/19/2021 11/09/2021 1:23 AM EDT Assessment Noted Time PHQ-2 Depression Total Score: 0 08/06/19 1:20 PM EST documented as of this encounter Care Teams Shake Maker Relationship Specialty Start Date End Date Chris Morales MD 40 [place] [address] [email or web address] PCP - General Internal Medicine 05/24/17 Chris Morales MD [address] [place] [address] [email or web address] Insurance Assigned Provider 10/08/23 Marce Cuellar NP [address] [place] [address] Endocrinology 08/06/19 Rizwan Diaz MD [address] [place] [address] Cardiology 10/03/19 Shantanu Cole MD [address] [place] [address] [place] [address] Ophthalmology 11/27/19 Alfonso Peters MD [address] [place] [address] [place] [address] Internal Medicine 05/20/20 Fritz Gotti MD 5 [place] [address] Internal Medicine 05/20/20 Armani Padron MD [address] [place] [phone] Gastroenterology 09/04/20 Juanjo Hart OT [address] [place] [address] [email or web address] Transitions Animal KillerAutomotive Shop Foreman Therapy 10/27/20 11/09/20 documented as of this encounter Additional Source Comments The information contained in this document represents components of the legal health record. It is not the complete legal health record.[facility]
--- OUTSIDE RECORDS SUMMARY | 2025-05-07 14:49 | XMS_ITS | Encounter Summary ---
Author Organization [facility] Address [address] [facility] [address] [place] [address] Phone Care Team Providers Care Enrobing Machine Operator Name Role Phone Chris Morales MD Unavailable [phone] Chris Morales MD Primary Care Provider [phone] Marce Cuellar NP Unavailable Rizwan Diaz MD Unavailable [phone] Shantanu Cole MD Unavailable Alfonso Peters MD Unavailable Fritz Gotti MD Unavailable [phone] Armani Padron MD Unavailable [phone] Juanjo Hart OT Unavailable [phone] Encounter Details Date Type Department Care Team (Late st Contact Info) Description 11/03/2020 Procedure Pass [facility] Cardiovascular And Interventional Radiology 30 [place] [address] Social History Tobacco Use Types Packs/Day Years [...] Description 07/10/2025 1:00 PM EST Office Visit [facility] Internal Medicine 40 [place] [address] Chris Morales MD 40 [place] [address] [email or web address] 07/17/2025 3:00 PM EST Office Visit [facility] 22 [place] [address] Peña Andrew DO 22 [place] [address] [email or web address] 09/11/2025 12:30 PM EDT Office Visit [facility] Retina [address] [address] Peña Andres MD [address] [place] [address] [email or web address] 09/11/2025 1:00 PM EDT Appointment [facility] Glaucoma [address] [address] Peña Andres MD [address] [place] [phone] [email or web address] 09/11/2025 1:30 PM EDT Office Visit [address] [address] Pete Small MD, PhD, MPH [address] [place] [address] [email or web address] 12/30/2025 2:00 PM EDT Office Visit [facility] Internal Medicine 40 [place], [place] [phone] Yury Vasquez PA-C 40 [place] [address] [email or web address] documented as of this encounter Visit Diagnoses Not on filedocumented in this encounter Additional Health Concerns Infection Onset Date Last Indicated Resolved Time CoV-Presumed 10/19/2021 10/19/2021 11/09/2021 1:23 AM EDT Assessment Noted Time PHQ-2 Depression Total Score: 0 08/06/19 1:20 PM EST documented as of this encounter Care Teams Enrobing Machine Operator Relationship Specialty Start Date End Date Chris Morales MD 40 [place] [address] [email or web address] PCP - General Internal Medicine 05/24/17 Chris Morales MD [address] [place] [address] [email or web address] Insurance Assigned Provider 10/08/23 Marce Cuellar NP [address] [place] [address] Endocrinology 08/06/19 Rizwan Diaz MD [address] [place] [address] Cardiology 10/03/19 Shantanu Cole MD [address] [place] [address] [place] [address] Ophthalmology 11/27/19 Alfonso Peters MD [address] [place] [address] [place] [address] Internal Medicine 05/20/20 Fritz Gotti MD 5 [place] [address] Internal Medicine 05/20/20 Armani Padron MD [address] [place] [phone] Gastroenterology 09/04/20 Juanjo Hart OT [address] [place] [address] [email or web address] Transitions Generation Mechanic HelperVp Mobile Products Therapy 10/27/20 11/09/20 documented as of this encounter Additional Source Comments The information contained in this document represents components of the legal health record. It is not the complete legal health record.[facility]
--- OUTSIDE RECORDS SUMMARY | 2025-05-07 14:49 | XMS_ITS | Encounter Summary ---
Author Organization [facility] Address [address] [facility] [address] [place] [address] Phone Care Team Providers Care Scientific Editor Name Role Phone Chris Morales MD Unavailable [phone] Chris Morales MD Primary Care Provider [phone] Marce Cuellar NP Unavailable Rizwan Diaz MD Unavailable [phone] Shantanu Cole MD Unavailable Alfonso Peters MD Unavailable [phone] Fritz Gotti MD Unavailable [phone] Armani Padron MD Unavailable [phone] Juanjo Hart OT Unavailable Encounter Details Date Type Department Care Team (Late st Contact Info) Description 11/03/2020 Procedure Pass [place] Admitting Dept - Virtual Department [address] [place] [address] Social History Tobacco Use Types Packs/Day Years [...] Description 07/10/2025 1:00 PM EST Office Visit [facility] Internal Medicine 40 [place] [address] Chris Morales MD 40 [place], [place] [phone] [email or web address] 07/17/2025 3:00 PM EST Office Visit [facility] 22 [place] [address] Peña Andrew DO 22 [place] [address] 09/11/2025 12:30 PM EDT Office Visit [facility] [address] [address] Peña Andres MD [address] [place] [address] [email or web address] 09/11/2025 1:00 PM EDT Appointment [facility] Glaucoma [address] [address] Peña Andres MD [address] [place] [address] [email or web address] 09/11/2025 1:30 PM EDT Office Visit [facility] Glaucoma [address] [address] Pete Small MD, PhD, MPH [address] [place] [address] [email or web address]@[email or web address] 12/30/2025 2:00 PM EDT Office Visit [facility] Internal Medicine [address] [place], [place] [phone] Yury Vasquez PA-C 40 [place] [address] [email or web address] documented as of this encounter Visit Diagnoses Not on filedocumented in this encounter Additional Health Concerns Infection Onset Date Last Indicated Resolved Time CoV-Presumed 10/19/2021 10/19/2021 11/09/2021 1:23 AM EDT Assessment Noted Time PHQ-2 Depression Total Score: 0 08/06/19 1:20 PM EST documented as of this encounter Care Teams Scientific Editor Relationship Specialty Start Date End Date Chris Morales MD 40 [place] [address] [email or web address] PCP - General Internal Medicine 05/24/17 Chris Morales MD 40 [place] [address] [email or web address] Insurance Assigned Provider 10/08/23 Marce Cuellar, SHANTHI [address] [place] [address] Endocrinology 08/06/19 Rizwan Diaz MD [address] [place] [address] Cardiology 10/03/19 Shantanu Cole MD [address] [place] [address] [place] [address] Ophthalmology 11/27/19 Alfonso Peters MD [address] [place] [address] [place] [address] Internal Medicine 05/20/20 Fritz Gotti MD [address] [place] [address] Internal Medicine 05/20/20 Armani Padron MD [address] [place] [phone] Gastroenterology 09/04/20 Juanjo Hart OT [address] [place] [address] [email or web address] Transitions Lead Systems ArchitectMachine Operator Farmworker Therapy 10/27/20 11/09/20 documented as of this encounter Additional Source Comments The information contained in this document represents components of the legal health record. It is not the complete legal health record.[facility]
--- OUTSIDE RECORDS SUMMARY | 2025-05-07 14:49 | XMS_ITS | Encounter Summary ---
Author Organization [facility] Address [address] [facility] [address] [place] [address] Phone Care Team Providers Care Metallurgy Laboratory Technician Name Role Phone Chris Morales MD Unavailable [phone] Chris Morales MD Primary Care Provider [phone] Marce Cuellar NP Unavailable [phone] Rizwan Diaz MD Unavailable [phone] Shantanu Cole MD Unavailable [phone] Alfonso Peters MD Unavailable [phone] Fritz Gotti MD Unavailable Armani Padron MD Unavailable Encounter Details Date Type Department Care Team (Latest Contact Info) Description 07/28/2021 Prep for Surgery [address] [address] Asha Vasquez MD [email or web address] Pseudoexfoliation glaucoma, indeterminate stage (Primary Dx) Social [...] 07/10/2025 1:00 PM EST Office Visit [facility] Internal Medicine [address] [place] [address] Chris Morales MD 40 [place] [address] [email or web address] 07/17/2025 3:00 PM EST Office Visit [facility] 22 [place] [address] Peña Andrew DO 22 [place] [address] [email or web address] 09/11/2025 12:30 PM EDT Office Visit [facility] Retina [address] [address] Peña Andres MD [address] [place] [address] [email or web address] 09/11/2025 1:00 PM EDT Appointment [address] [address] Peañ Andres MD [address] [place] [address] [email or web address] 09/11/2025 1:30 PM EDT Office Visit [address] [address] Pete Small MD, PhD, MPH [address] [place] [address] Corinna@[email or web address] 12/30/2025 2:00 PM EDT Office Visit [facility] Internal Medicine [address] [place] [address] Yury Vasquez PA-C [address] [place] [address] [email or web address] documented as of this encounter Visit Diagnoses Diagnosis Pseudoexfoliation glaucoma, indeterminate stage- Primary documented in this encounter Additional Health Concerns Infection Onset Date Last Indicated Resolved Time CoV-Presumed 10/19/2021 10/19/2021 11/09/2021 1:23 AM EDT Assessment Noted Time PHQ-2 Depression Total Score: 0 08/06/19 1:20 PM EST documented as of this encounter Care Teams Metallurgy Laboratory Technician Relationship Specialty Start Date End Date Chris Morales MD [address] [place] [address] [email or web address] PCP - General Internal Medicine 05/24/17 Chris Morales MD [address] [place] [address] [email or web address] Insurance Assigned Provider 10/08/23 Marce Cuellar, SHANTHI [address] [place] [address] Endocrinology 08/06/19 Rizwan Diaz MD [address] [place] [address] Cardiology 10/03/19 Shantanu Cole MD [address] [place] [address] [place] [address] Ophthalmology 11/27/19 Alfonso Peters MD [address] [place] [address] [place] [address] Internal Medicine 05/20/20 Fritz Gotti MD [address] [place] [address] Internal Medicine 05/20/20 Armani Padron MD [address] [place] [phone] Gastroenterology 09/04/20 documented as of this encounter Additional Source Comments The information contained in this document represents components of the legal health record. It is not the complete legal health record.[facility]
--- OUTSIDE RECORDS SUMMARY | 2025-05-07 14:49 | XMS_ITS | Encounter Summary ---
Author Organization [facility] Address [address] [facility] [address] [place] [address] Phone Care Team Providers Care Software Analyst Name Role Phone Chris Morales MD Unavailable [phone] Chris Morales MD Primary Care Provider [phone] Marce Cuellar NP Unavailable [phone] Rizwan Diaz MD Unavailable [phone] Shantanu Cole MD Unavailable Alfonso Peters MD Unavailable [phone] Fritz Gotti MD Unavailable Armani Padron MD Unavailable Reason for Visit * Reason Comments Medication Refill Encounter Details Date Type Department Care Team (Late st Contact Info) Description 08/31/2021 Refill [facility] [address] [address] Collin Erickson MD, PhD [address] [place] [address], [address] [place] [address] [email or web address] Medication Refill Social History Tobacco Use [...] Description 07/10/2025 1:00 PM EST Office Visit [facility] Internal Medicine [address] [place] [address] Chris Morales MD 40 [place] [address] 07/17/2025 3:00 PM EST Office Visit [facility] 22 [place] [address] Peña Andrew DO 22 [place] [address] 09/11/2025 12:30 PM EDT Office Visit [facility] [address] [address] Peña Andres MD [address] [place] [address] [email or web address] 09/11/2025 1:00 PM EDT Appointment [facility] [place] Glaucoma [address] [address] Peña Andres MD [address] [place] [address] [email or web address] 09/11/2025 1:30 PM EDT Office Visit [facility] [place] Glaucoma [address] [address] Pete Small MD, PhD, MPH [address] [place] [address] [email or web address] 12/30/2025 2:00 PM EDT Office Visit [facility] Internal Medicine 40 [place], [place] [phone] Yury Vasquez PA-C 40 [place] [address] documented as of this encounter Visit Diagnoses Not on filedocumented in this encounter Additional Health Concerns Infection Onset Date Last Indicated Resolved Time CoV-Presumed 10/19/2021 10/19/2021 11/09/2021 1:23 AM EDT Assessment Noted Time PHQ-2 Depression Total Score: 0 08/06/19 1:20 PM EST documented as of this encounter Care Teams Software Analyst Relationship Specialty Start Date End Date Chris Morales MD 40 [place] [address] PCP - General Internal Medicine 05/24/17 Chris Morales MD [address] [place] [address] Insurance Assigned Provider 10/08/23 Marce Cuellar, SHANTHI [address] [place] [address] Endocrinology 08/06/19 Rizwan Diaz MD [address] [place] [address] Cardiology 10/03/19 Shantanu Cole MD [address] [place] [address] [place] [address] Ophthalmology 11/27/19 Alfonso Peters MD [address] [place] [address] Dr [address] [place] [address] Internal Medicine 05/20/20 Fritz Gotti MD [address] [place] [address] Internal Medicine 05/20/20 Armani Padron MD [address] [place] [address] Dr Bennett [address] [place] [phone] Gastroenterology 09/04/20 documented as of this encounter Additional Source Comments The information contained in this document represents components of the legal health record. It is not the complete legal health record.[facility]
--- OUTSIDE RECORDS SUMMARY | 2025-05-07 14:49 | XMS_ITS | Encounter Summary ---
Author Organization [facility] Address [address] [facility] [address] [place] [address] Phone Care Team Providers Care Sheet Metal Engineer Name Role Phone Chris Morales MD Unavailable [phone] Chris Morales MD Primary Care Provider [phone] Marce Cuellar NP Unavailable Rizwan Diaz MD Unavailable [phone] Shantanu Cole MD Unavailable Alfonso Peters MD Unavailable Fritz Gotti MD Unavailable [phone] Armani Padron MD Unavailable [phone] Juanjo Hart OT Unavailable Encounter Details Date Type Department Care Team (Late st Contact Info) Description 10/29/2020 Procedure Pass [facility] Cardiovascular And Interventional Radiology [address] [place] [address] Social History Tobacco Use Types Packs/Day Years [...] Description 07/10/2025 1:00 PM EST Office Visit [facility] Internal Medicine [address] [place] [address] Chris Morales MD 40 [place] [address] [email or web address] 07/17/2025 3:00 PM EST Office Visit [facility] 22 [place] [address] Peña Andrew DO 22 [place] [address] [email or web address] 09/11/2025 12:30 PM EDT Office Visit [facility] Retina [address] [address] Peña Andres MD [address] [place] [address] [email or web address] 09/11/2025 1:00 PM EDT Appointment [facility] Glaucoma [address] [address] Peña Andres MD [address] [place] [address] Elida@[facility] 09/11/2025 1:30 PM EDT Office Visit [address] [address] Pete Small MD, PhD, MPH [address] [place] [address] [email or web address] 12/30/2025 2:00 PM EDT Office Visit [facility] Internal Medicine [address] [place], [place] [phone] Yury Vasquez PA-C 40 [place] [address] [email or web address] documented as of this encounter Visit Diagnoses Not on filedocumented in this encounter Additional Health Concerns Infection Onset Date Last Indicated Resolved Time CoV-Presumed 10/19/2021 10/19/2021 11/09/2021 1:23 AM EDT Assessment Noted Time PHQ-2 Depression Total Score: 0 08/06/19 1:20 PM EST documented as of this encounter Care Teams Sheet Metal Engineer Relationship Specialty Start Date End Date Chris Morales MD 40 [place] [address] [email or web address] PCP - General Internal Medicine 05/24/17 Chris Morales MD [address] [place] [address] [email or web address] Insurance Assigned Provider 10/08/23 Marce Cuellar NP [address] [place] [address] Endocrinology 08/06/19 Rizwan Diaz MD [address] [place] [address] Cardiology 10/03/19 Shantanu Cole MD [address] [place] [address] [place] [address] Ophthalmology 11/27/19 Alfonso Peters MD [address] [place] [address] [place] [address] Internal Medicine 05/20/20 Fritz Gotti MD [address] [place] [address] Internal Medicine 05/20/20 Armani Padron MD [address] [place] [address] [phone] Gastroenterology 09/04/20 Juanjo Hart OT [address] [place] [address] [email or web address] Transitions Clothes DesignerMarine Oiler Therapy 10/27/20 11/09/20 documented as of this encounter Additional Source Comments The information contained in this document represents components of the legal health record. It is not the complete legal health record.[facility]
--- OUTSIDE RECORDS SUMMARY | 2025-05-07 14:49 | XMS_ITS | Encounter Summary ---
Author Organization [facility] Address [address] [facility] [address] [place] [address] Phone Care Team Providers Care Digital Media Sales Consultant Name Role Phone Chris Morales MD Unavailable [phone] Chris Morales MD Primary Care Provider [phone] Marce Cuellar NP Unavailable Rizwan Diaz MD Unavailable [phone] Shantanu Cole MD Unavailable Alfonso Peters MD Unavailable Fritz Gotti MD Unavailable Armani Padron MD Unavailable Juanjo Hart OT Unavailable Encounter Details Date Type Department Care Team (Late st Contact Info) Description 10/21/2020 Procedure Pass [facility] [address] [place] [address] Social History Tobacco Use Types Packs/Day Years [...] 7:33 PM EDT PostSherri uribe RN * [place] Suicide Severity Rating Scale (Screener/Recent Self-Report) Question [...] Description 07/10/2025 1:00 PM EST Office Visit [facility] Internal Medicine 40 [place] [address] Chris Morales MD 40 [place] [address] 07/17/2025 3:00 PM EST Office Visit [facility] [address] [place] [address] Peña Andrew DO [address] [place] [address] 09/11/2025 12:30 PM EDT Office Visit [address] [address] Peña Andres MD [address] [place] [address] [email or web address] 09/11/2025 1:00 PM EDT Appointment [address] [address] Peña Andres MD [address] [place] [address] [place] [address] [email or web address] 09/11/2025 1:30 PM EDT Office Visit [facility] [address] [place] [address] Pete Small MD, PhD, MPH [address] [place] [address] Corinna@[email or web address] 12/30/2025 2:00 PM EDT Office Visit [facility] Internal Medicine [address] [place], [place] [address] Yury Vasquez PA-C [address] [place] [address] [email or web address] documented as of this encounter Visit Diagnoses Not on filedocumented in this encounter Additional Health Concerns Infection Onset Date Last Indicated Resolved Time CoV-Presumed 10/19/2021 10/19/2021 11/09/2021 1:23 AM EDT Assessment Noted Time PHQ-2 Depression Total Score: 0 08/06/19 20 1:20 PM EST documented as of this encounter Care Teams Digital Media Sales Consultant Relationship Specialty Start Date End Date Chris Morales MD 40 [place] [address] [email or web address] PCP - General Internal Medicine 05/24/17 Chris Morales MD 40 [place] [address] [email or web address] Insurance Assigned Provider 10/08/23 Marce Cuellar NP 40 [place] [address] Endocrinology 08/06/19 Rizwan Diaz MD [address] [place] [address] Cardiology 10/03/19 Shantanu Cole MD [address] [place] [address] Dr [address]UENA [address] [place] [address] Ophthalmology 11/27/19 Alfonso Peters MD [address] [place] [address] Dr BAL[address]UENA [address] [place] [address] Internal Medicine 05/20/20 Fritz Gotti MD [address] [place] [address] Internal Medicine 05/20/20 Armani Padron MD [address] [place] [address] Dr Bennett [address] [place] [phone] Gastroenterology 09/04/20 Juanjo Hart OT [address] [place] [address] [email or web address] Transitions Flat Lock OperatorEnterprise Mobility Architect Therapy 10/27/20 11/09/20 documented as of this encounter Additional Source Comments The information contained in this document represents components of the legal health record. It is not the complete legal health record.[facility]
--- OUTSIDE RECORDS SUMMARY | 2025-05-07 14:49 | XMS_ITS | Encounter Summary ---
Author Organization [facility] Address [address] [facility] [address] [place] [address] Phone Care Team Providers Care Table Top Tile Setter Name Role Phone Chris Morales MD Unavailable [phone] Chris Morales MD Primary Care Provider [phone] Marce Cuellar NP Unavailable Rizwan Diaz MD Unavailable [phone] Shantanu Cole MD Unavailable Alfonso Peters MD Unavailable Fritz Gotti MD Unavailable Armani Padron MD Unavailable [phone] Juanjo Hart OT Unavailable [phone] Encounter Details Date Type Department Care Team (Late st Contact Info) Description 11/03/[address] [place] [address] Collin Erickson MD, PhD [address] [place] [address], [address] [place] [address] [email or web address] Social History Tobacco Use Types Packs/Day Years [...] [facility] Internal Medicine [address] [place] [address] Chris Morales MD 40 [place] [address] [email or web address] 07/17/2025 3:00 PM EST Office Visit [facility] 22 [place] [address] Peña Andrew DO 22 [place] [address] 09/11/2025 12:30 PM EDT Office Visit [facility] [address] [address] Peña Andres MD [address] [place] [address] [email or web address] 09/11/2025 1:00 PM EDT Appointment [facility] [address] [address] Peña Andres MD [address] [place] [address] [email or web address] 09/11/2025 1:30 PM EDT Office Visit [facility] [address] [address] Pete Small MD, PhD, MPH [address] [place] [address] Corinna@[email or web address] .[email or web address] 12/30/2025 2:00 PM EDT Office Visit [facility] Internal Medicine 40 [place] [address] Yury Vasquez PA-C 40 [place] [address] documented as of this encounter Visit Diagnoses Not on filedocumented in this encounter Additional Health Concerns Infection Onset Date Last Indicated Resolved Time CoV-Presumed 10/19/2021 10/19/2021 11/09/2021 1:23 AM EDT Assessment Noted Time PHQ-2 Depression Total Score: 0 08/06/19 1:20 PM EST documented as of this encounter Care Teams Table Top Tile Setter Relationship Specialty Start Date End Date Chris Morales MD 40 [place] [address] PCP - General Internal Medicine 05/24/17 Chris Morales MD [address] [place] [address] Insurance Assigned Provider 10/08/23 Marce Cuellar NP [address] [place] [address] Endocrinology 08/06/19 Rizwan Diaz MD [address] [place] [address] Cardiology 10/03/19 Shantanu Cole MD [address] [place] [address] [place] [phone] Ophthalmology 11/27/19 Alfonso Peters MD [address] [place] [address] Dr BAL[address]UENA [address] [place] [address] Internal Medicine 05/20/20 Fritz Gotti MD [address] [place] [address] Internal Medicine 05/20/20 Armani Padron MD [address] [place] [address] Dr Bennett [address] [place] [phone] Gastroenterology 09/04/20 Juanjo Hart OT [address] [place] [address] [email or web address] Transitions Co DirectorDirectory Compiler Therapy 10/27/20 11/09/20 documented as of this encounter Additional Source Comments The information contained in this document represents components of the legal health record. It is not the complete legal health record.[facility]
--- OUTSIDE RECORDS SUMMARY | 2025-05-07 14:49 | XMS_ITS | Encounter Summary ---
Author Organization [facility] Address [address] [place] [address] [place] [address] Phone Care Team Providers Care Certified Appliance Service Technician Name Role Phone Chris Morales MD Unavailable [phone] Sammie Whitman MD Unavailable [phone] Chris Morales MD Unavailable [phone] Claudia Lozano REST RO[facility] Unavailable [phone] Chris Morales MD Primary Care Provider Marce Cuellar REST ROOM [facility] Unavailable Rizwan Diaz MD Unavailable [phone] Shantanu Cole MD Unavailable Alfonso Peters MD Unavailable [phone] Fritz Gotti MD Unavailable [phone] Armani Padron MD Unavailable Juanjo Hart OT Unavailable Encounter Details Date Type Department Care Team (Latest Contact Info) Description 07/08/2017 Transcribe Orders [address] [place] [address] Chris Morales MD 40 [place], [place] [address] Uncontrolled type 2 diabetes mellitus without complication, [...] 1:00 PM EST Office Visit [facility] Internal Medicine 40 [place] [address] Chris Morales MD 40 [place] [address] 07/17/2025 3:00 PM EST Office Visit [facility] [address] [place] [address] Peña Andrew DO 22 [place] [address] 09/11/2025 12:30 PM EDT Office Visit [facility] [address] [address] Peña Andres MD [address] [place] [address] [email or web address] 09/11/2025 1:00 PM EDT Appointment [facility] [address] [address] Peña Andres MD [address] [place] [address] [email or web address] 09/11/2025 1:30 PM EDT Office Visit [facility] Glaucoma [address] [address] Pete Small MD, PhD, MPH [address] [place] [address] [email or web address] 12/30/2025 2:00 PM EDT Office Visit [facility] Internal Medicine 40 [place] [address] Yury Vasquez PA-C 40 [place] [address] [email or web address] documented as of this encounter Procedures Procedure [...] URINE MICROALBUMIN 3.5(H) 0 - 2.3 mg/dL [facility] URINE CREATININE 140 mg/dL FIELD BROOMER [facility] MICROALB/CRE RATIO 25.0(H) 0 - 20 mg/g Cre [facility] Urine (Urine) 07/08/2017 8:5 8 AM EST 07/08/2017 9:00 AM EST us Chris Morales MD LAB URINE ORDERABLES Final Re sult Performing Organization Address [facility]/ZIP Co de Phone Number [address] [address] * (ABNORMAL) Hemoglobin A1c (07/08/2017 8:58 AM EST) HEMOGLOBIN A1C 11.1(H) 4.3 - 5.8 % [facility] Blood 07/08/2017 8:58 AM EST 07/08/2017 9:01 AM EST us Chris Morales MD LAB BLOOD BKR ORDERABLES Brittny l Result Performing Organization Address [facility] Co de Phone Number [address] [address] * (ABNORMAL) Comprehensive metabolic panel (07/08/2017 8:58 AM EST) SODIUM 142 133 - 146 mmol/L [facility] POTASSIUM 4.2 3.3 - 5.1 mmol/L [facility] CHLORIDE 101 96 - 108 mmol/L [facility] CO2 29 21 - 35 mmol/L [facility] BUN 18 6 - 19 mg/dL [facility] CREATININE 1.00 0.5 - 1.5 mg/dL [facility] GLUCOSE 245(H) 70 - 99 mg/dL [facility] ALBUMIN 4.3 3.9 - 4.8 g/dL [facility] TOTAL PROTEIN 7.3 6.5 - 8.0 g/dL [facility] CALCIUM 9.6 8.4 - 10.3 mg/dL [facility] ALKALINE PHOSPHATASE 88 39 - 117 U/L [facility] TOTAL BILIRUBIN 1.1 0 - 1.2 mg/dL [facility] AST 19 0 - 37 U/L [facility] ALT 6 0 - 40 U/L [facility] GLOBULIN 3.0 1 - 4.8 g/dL [facility] EGFR >60 mL/min/1.7 3m2 [facility] Comment:Abnormal if <60. If patient is -Bulgarian, multiply the result by 1.21. ANION GAP 16 10 - 20 mmol/L [facility] Blood 07/08/2017 8:58 AM EST 07/08/2017 9:01 AM EST Chris Morales MD LAB BLOOD BKR ORDERABLES Brittny l Result [address] [address] * (ABNORMAL) CBC (07/08/2017 8:58 AM EST) WBC 8.85 3.40 - 11.20 K/uL [facility] RBC 4.77 4.50 - 5.50 M/uL [facility] HGB 14.6 13.0 - 17.0 g/dL [facility] HCT 44.2 40.0 - 51.0 % [facility] PLT 214 130 - 400 K/uL [facility] MCV 92.7 79.0 - 98.0 fL [facility] MCH 30.6 27.0 - 34.8 pg [facility] MCHC 33.0 31.5 - 36.0 g/dL [facility] RDW 13.0 10.8 - 14.6 % [facility] MPV 9.3(L) 9.4 - 12.4 fl [facility] NRBC 0.00 /100 WBCs [facility] ABSOLUTE NRBC 0.00 K/uL [facility] Blood 07/08/2017 8:58 AM EST 07/08/2017 9:01 AM EST us Chris Morales MD LAB BLOOD BKR ORDERABLES Brittny l Result [address] [address] * PSA (screening) (07/08/2017 8:58 AM EST) PSA 1.95 0 - 4.00 ng/mL [facility] Blood 07/08/2017 8:58 AM EST 07/08/2017 9:01 AM EST us Chris Morales MD LAB BLOOD BKR ORDERABLES Brittny cee Result [facility] [address] [place] [address] documented in this encounter Visit Diagnoses Diagnosis Uncontrolled type 2 diabetes mellitus without complication, without long-term current use of insulin- Primary Essential hypertension, benign documented in this encounter Additional Health Concerns Infection Onset Date Last Indicated Resolved Time CoV-Presumed 10/19/2021 10/19/2021 11/09/2021 1:23 AM EDT documented as of this encounter Care Teams Certified Appliance Service Technician Relationship Specialty Start Date End Date Chris Morales MD 40 [place] [address] PCP - General Internal Medicine 05/24/17 Chris Morales MD 40 [place] [address] Insurance Assigned Provider 10/08/23 Sammie Whitman MD [address] [place] [address] Historical LMR Provider 04/23/17 08/05/19 Chirs Morales MD 40 [place] [address] [email or web address] Historical LMR Provider 04/23/17 08/05/19 Claudia Lozano NP [address] [place] [address] 6 [place] [address] [email or web address] Historical LMR Provider 04/23/17 08/05/19 Marce Cuellar NP 40 [place] [address] Endocrinology 08/06/19 Rizwan Diaz MD [address] [place] [address] Cardiology 10/03/19 Shantanu Cole MD [address] [place] [address] Dr BALBUENA [address] [place] [address] Ophthalmology 11/27/19 Alfonso Peters MD [address] [place] [address] Dr BALBUENA [address] [place] [address] Internal Medicine 05/20/20 Fritz Gotti MD [address] [place] [address] Internal Medicine 05/20/20 Armani Padron MD [address] [place] [address] Dr Bennett [address] [place] [phone] Gastroenterology 09/04/20 Juanjo Hart OT [address] [place] [address] [email or web address] Transitions Tuft Machine OperatorRetail Warehouse Associate Therapy 10/27/20 11/09/20 documented as of this encounter Additional Source Comments The information contained in this document represents components of the legal health record. It is not the complete legal health record.[facility]
--- OUTSIDE RECORDS SUMMARY | 2025-05-07 14:49 | XMS_ITS | Encounter Summary ---
Author Organization [facility] Address [address] [facility] [address] [place] [address] Phone Care Team Providers Care Police Lieutenant Precinct Name Role Phone Chris Morales MD Unavailable [phone] Chris Morales MD Primary Care Provider [phone] Marce Cuellar NP Unavailable Rizwan Diaz MD Unavailable [phone] Shantanu Cole MD Unavailable Alfonso Peters MD Unavailable Fritz Gotti MD Unavailable Armani Padron MD Unavailable Juanjo Hart OT Unavailable Encounter Details Date Type Department Care Team (Late st Contact Info) Description 10/29/2020 Procedure Pass OR Admitting Dept - Virtual Department [address] [place] [address] Social History Tobacco Use Types Packs/Day Years [...] 07/10/2025 1:00 PM EST Office Visit [facility] Internal Medicine 40 [place] [address] Chris Morales MD 40 [place], [place] [address] [email or web address] 07/17/2025 3:00 PM EST Office Visit [facility] 22 [place] [address] Peña Andrew DO 22 [place] [address] 09/11/2025 12:30 PM EDT Office Visit [facility] [address] [address] Peña Andres MD [address] [place] [address] [email or web address] 09/11/2025 1:00 PM EDT Appointment [facility] Glaucoma [address] [address] Peña Andres MD [address] [place] [address] [email or web address] 09/11/2025 1:30 PM EDT Office Visit [facility] Glaucoma [address] [address] Pete Small MD, PhD, MPH [address] [place] [address] [email or web address] 12/30/2025 2:00 PM EDT Office Visit [facility] Internal Medicine 40 [place], [place] [phone] Yury Vasquez PA-C 40 [place] [address] [email or web address] documented as of this encounter Visit Diagnoses Not on filedocumented in this encounter Additional Health Concerns Infection Onset Date Last Indicated Resolved Time CoV-Presumed 10/19/2021 10/19/2021 11/09/2021 1:23 AM EDT Assessment Noted Time PHQ-2 Depression Total Score: 0 08/06/19 1:20 PM EST documented as of this encounter Care Teams Police Lieutenant Precinct Relationship Specialty Start Date End Date Chris Morales MD 40 [place] [address] [email or web address] PCP - General Internal Medicine 05/24/17 Chris Morales MD 40 [place] [address] [email or web address] Insurance Assigned Provider 10/08/23 Marce Cuellar, SHANTHI [address] [place] [address] Endocrinology 08/06/19 Rizwan Diaz MD [address] [place] [address] Cardiology 10/03/19 Shantanu Cole MD [address] [place] [address] [place] [address] Ophthalmology 11/27/19 Alfonso Peters MD [address] [place] [address] [place] [address] Internal Medicine 05/20/20 Fritz Gotti MD [address] [place] [address] Internal Medicine 05/20/20 Armani Padron MD [address] [place] [phone] Gastroenterology 09/04/20 Juanjo Hart OT [address] [place] [address] [email or web address] Transitions LockmakerSolution Director Therapy 10/27/20 11/09/20 documented as of this encounter Additional Source Comments The information contained in this document represents components of the legal health record. It is not the complete legal health record.[facility]
--- OUTSIDE RECORDS SUMMARY | 2025-05-07 14:50 | XMS_ITS | Patient Health Record ---
Author Organization [facility] Address [address] [place] [address] Care Team Providers Care Child Care Center Assistant Director Name Role Phone Chris Morales MD Primary [...] Status Risk Notes Problem Colon cancer screening (889332894) Colon cancer screening (Z12.11) Active confirmed Problem Long-term current use of anticoagulant (500283126) assistant terminal manager (current) use of anticoagulants (Z79.01) Active confirmed Problem Long-term current use of insulin (716794614) penitentiary current use of insulin (Z79.4) Active confirmed Problem Anemia (706502466) Anemia, unspecified type (D64.9) Active confirmed Plan [...] OF [place] [address] [place] [address] [id number] ILSA MULTANI Self - patient is the insured [employer] (Acquaintable) [address] [place] [address] [phone] [id number] ILSA MULTANI Self - patient is the insured Medical (General) History Medical History History ICD Code diabetes mellitus hemochromatosis, 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
--- OUTSIDE RECORDS SUMMARY | 2025-05-07 14:50 | XMS_ITS | Encounter Summary ---
Author Organization [facility] Address [address] [facility] [address] [place] [address] Phone Care Team Providers Care Telemarketing Representative Name Role Phone Chris Morales MD Unavailable [phone] Chris Morales MD Primary Care Provider [phone] Marce Cuellar NP Unavailable [phone] Rizwan Diaz MD Unavailable [phone] Shantanu Cole MD Unavailable Alfonso Peters MD Unavailable [phone] Fritz Gotti MD Unavailable [phone] Armani Padron MD Unavailable Encounter Details Date Type Department Care Team (Late st Contact Info) Description 12/10/2021 Procedure Pass [facility], Ct Scan - [address] [address] Social History Tobacco Use Types Packs/Day Years [...] Description 07/10/2025 1:00 PM EST Office Visit [facility] Internal Medicine 40 [place] [address] Chris Morales MD 40 [place] [address] [email or web address] 07/17/2025 3:00 PM EST Office Visit [facility] 22 [place] [address] Peña Andrew DO 22 [place] [address] [email or web address] 09/11/2025 12:30 PM EDT Office Visit [facility] Retina [address] [address] Peña Andres MD [address] [place] [address] [email or web address] 09/11/2025 1:00 PM EDT Appointment [facility] Glaucoma [address] [address] Peña Andres MD [address] [place] [address] [email or web address] 09/11/2025 1:30 PM EDT Office Visit [address] [address] Pete Small MD, PhD, MPH [address] [place] [address] Corinna@[email or web address] 12/30/2025 2:00 PM EDT Office Visit [facility] Internal Medicine 40 [place], [place] [phone] Yury Vasquez PA-C 40 [place] [address] documented as of this encounter Visit Diagnoses Not on filedocumented in this encounter Additional Health Concerns Assessment Noted Time PHQ-2 Depression Total Score: 0 09/08/19 22 2:12 PM EST documented as of this encounter Care Teams Telemarketing Representative Relationship Specialty Start Date End Date Chris Morales MD 40 [place] [address] PCP - General Internal Medicine 05/24/17 Chris Morales MD 40 [place] [address] Insurance Assigned Provider 10/08/23 Marce Cuellar, SEMICONDUCTOR TECHNICIAN 40 [place] [address] Endocrinology 08/06/19 Rizwan Diaz MD [address] [place] [address] Cardiology 10/03/19 Shantanu Cole MD [address] [place] [address] [place] [address] Ophthalmology 11/27/19 Alfonso Peters MD [address] [place] [address] [place] [address] Internal Medicine 05/20/20 Fritz Gotti MD [address] [place] [address] [place] [address] Internal Medicine 05/20/20 Armani Padron MD [address] [place] [address] [place] [phone] Gastroenterology 09/04/20 documented as of this encounter Additional Source Comments The information contained in this document represents components of the legal health record. It is not the complete legal health record.[facility]
--- OUTSIDE RECORDS SUMMARY | 2025-05-07 14:50 | XMS_ITS | Encounter Summary ---
Author Organization [facility] Address [address] [place] [address] [place] [address] Phone Care Team Providers Care Diesel Truck Crane Operator Name Role Phone Chris Morales MD Unavailable [phone] Chris Morales MD Primary Care Provider [phone] Marce Cuellar NP Unavailable [phone] Rizwan Diaz MD Unavailable [phone] Shantanu Cole MD Unavailable Alfonso Peters MD Unavailable [phone] Fritz Gotti MD Unavailable Armani Padron MD Unavailable Encounter Details Date Type Department Care Team (Late Contact Info) Description 11/22/2020 Procedure Pass [facility] Cardiovascular And Interventional Radiology [address] [place] [address] Social History Tobacco Use Types Packs/Day Years [...] Description 07/10/2025 1:00 PM EST Office Visit [facility] Internal Medicine 40 [place] [address] Chris Morales MD 40 [place] [address] [email or web address] 07/17/2025 3:00 PM EST Office Visit [facility] 22 [place] [address] Peña Andrew DO 22 [place] [address] 09/11/2025 12:30 PM EDT Office Visit [facility] [address] [address] Peña Andres MD [address] [place] [address] [email or web address] 09/11/2025 1:00 PM EDT Appointment [facility] Glaucoma [address] [address] Peña Andres MD [address] [place] [address] [email or web address] 09/11/2025 1:30 PM EDT Office Visit [facility] Glaucoma [address] [address] Pete Small MD, PhD, MPH [address] [place] [address] [email or web address] 12/30/2025 2:00 PM EDT Office Visit [facility] Internal Medicine [address] [place], [place] [phone] Yury Vasquez PA-C 40 [place] [address] [email or web address] documented as of this encounter Visit Diagnoses Not on filedocumented in this encounter Additional Health Concerns Infection Onset Date Last Indicated Resolved Time CoV-Presumed 10/19/2021 10/19/2021 11/09/2021 1:23 AM EDT Assessment Noted Time PHQ-2 Depression Total Score: 0 08/06/19 1:20 PM EST documented as of this encounter Care Teams Diesel Truck Crane Operator Relationship Specialty Start Date End Date Chris Morales MD 40 [place] [address] [email or web address] PCP - General Internal Medicine 05/24/17 Chris Morales MD 40 [place] [address] [email or web address] Insurance Assigned Provider 10/08/23 Marce Cuellar, SHANTHI 40 [place] [address] Endocrinology 08/06/19 Rizwan Diaz MD [address] [place] [address] Cardiology 10/03/19 Shantanu Cole MD [address] [place] [address] [place] [address] Ophthalmology 11/27/19 Alfonso Peters MD [address] [place] [address] [place] [address] Internal Medicine 05/20/20 Fritz Gotti MD [address] [place] [address] Internal Medicine 05/20/20 Armani Padron MD [address] [place] [phone] Gastroenterology 09/04/20 documented as of this encounter Additional Source Comments The information contained in this document represents components of the legal health record. It is not the complete legal health record.[facility]
--- OUTSIDE RECORDS SUMMARY | 2025-05-07 14:50 | XMS_ITS | Encounter Summary ---
Author Organization [facility] Address [address] [facility] [address] [place] [address] Phone Care Team Providers Care Director Of Events Name Role Phone Chris Morales MD Unavailable [phone] Chris Morales MD Primary Care Provider [phone] Marce Cuellar NP Unavailable Rizwan Diaz MD Unavailable [phone] Shantanu Cole MD Unavailable [phone] Alfonso Peters MD Unavailable Fritz Gotti MD Unavailable [phone] Armani Padron MD Unavailable Juanjo Hart OT Unavailable [phone] Encounter Details Date Type Department Care Team (Late st Contact Info) Description 10/24/2020 Procedure Pass [facility], Ct Scan - [address] [address] Social History Tobacco Use Types Packs/Day Years [...] 10/24/2020 7:33 PM EDT Postema , Sherri Rush RN * [place] Suicide Severity Rating Scale (Screener/Recent Self-Report) Question Answer Date of Assessment Author 1. Wish to be (Past 1 Month) No 10/24/2020 7:33 PM EDT Postrony, Sherri zee RN 2. Non-Specific Active Suicidal Thoughts (Past 1 Month) No 10/24/2020 7:33 PM EDT Postrony, Sherri zee RN 6. Suicidal Behavior (Lifetime) No 10/24/2020 7:33 PM EDT Postrony, Sherri zee RN documented as of this encounter Plan of Treatment Upcoming Encounters Date Type Department Care Team (Late st Contact Info) Description 07/10/2025 1:00 PM EST Office Visit [facility] Internal Medicine 40 [place] [address] Chris Morales MD 40 [place] [address] 07/17/2025 3:00 PM EST Office Visit [facility] [address] [place] [address] Peña Andrew DO 22 [place] [address] 09/11/2025 12:30 PM EDT Office Visit [address] [address] Peña Andres MD [address] [place] [address] [email or web address] 09/11/2025 1:00 PM EDT Appointment [address] [address] Peña Andres MD [facility] [place] [address] [email or web address] 09/11/2025 1:30 PM EDT Office Visit [facility] [address] [place] [address] Pete Small MD, PhD, MPH [address] [place] [address] [email or web address] 12/30/2025 2:00 PM EDT Office Visit [facility] Internal Medicine 40 [place] [address] Yury Vasquez PA-C 40 [place] [address] [email or web address] documented as of this encounter Visit Diagnoses Not on filedocumented in this encounter Additional Health Concerns Infection Onset Date Last Indicated Resolved Time CoV-Presumed 10/19/2021 10/19/2021 11/09/2021 1:23 AM EDT Assessment Noted Time PHQ-2 Depression Total Score: 0 08/06/19 20 1:20 PM EST documented as of this encounter Care Teams Director Of Events Relationship Specialty Start Date End Date Chris Morales MD 40 [place] [address] [email or web address] PCP - General Internal Medicine 05/24/17 Chris Morales MD 40 [place] [address] [email or web address] Insurance Assigned Provider 10/08/23 Marce Cuellar NP [address] [place] [address] Endocrinology 08/06/19 Rizwan Diaz MD [address] [place] [address] Cardiology 10/03/19 Shantanu Cole MD [address] [place] [address] Dr BALBUENA [address] [place] [address] Ophthalmology 11/27/19 Alfonso Peters MD [address] [place] [address] Dr BALBUENA [address] [place] [address] Internal Medicine 05/20/20 Fritz Gotti MD [address] [place] [address] Internal Medicine 05/20/20 Armani Padron MD [address] [place] [address] Dr Bennett [address] [place] [phone] Gastroenterology 09/04/20 Juanjo Hart OT [address] [place] [address] [email or web address] Transitions Web Marketing ManagerBridge Engineer Therapy 10/27/20 11/09/20 documented as of this encounter Additional Source Comments The information contained in this document represents components of the legal health record. It is not the complete legal health record.[facility]
== END 2025-05-07 12:01 | disposition home or self-care (01) ==
LOC: HO.HAP 12:00
PROVIDERS: Visit Provider Internal Medicine
DX: Z46.1 Encounter for fitting and adjustment of hearing aid (principal); H90.3 Sensorineural hearing loss, bilateral
CPT/HCPCS: 92593